=== PATIENT | male | born 1945 | race Caucasian/White ===

== ENCOUNTER → 2019-12-17 11:17 | Outpatient (BNVA) | payer MEDICARE, OTHER, SELFPAY | PROVIDERS: Family Provider Family Medicine; PCP Family Medicine; Visit Provider Nurse Practitioner Family | DX: J02.9 Acute pharyngitis, unspecified (principal); K11.20 Sialoadenitis, unspecified; B37.0 Candidal stomatitis | CPT/HCPCS: 87071; 87880 ==

== ENCOUNTER 2019-12-27 10:33 | Emergency (ER) | payer MEDICARE, OTHER, SELFPAY ==
--- NOTE | 2019-12-27 10:37 | XRR_ITS ---
PROCEDURE INFORMATION: Exam: XR Chest, 1 View Exam date and time: 12/27/2019 10:57 AM Age: 74 years old Clinical indication: Chest pain; Type not specified; Additional info: Chest pain/afib/stemi TECHNIQUE: Imaging protocol: XR of the chest Views: 1 view. COMPARISON: CR Chest 1 [place] [id number] 05/27/2017 8:41 AM FINDINGS: Lungs: Unremarkable. No consolidation. Pleural space: Unremarkable. No pleural effusion. No pneumothorax. Heart/Mediastinum: Unremarkable. No cardiomegaly. Bones/joints: Unremarkable. XR/XR chest 1V portable [id number] IMPRESSION: No acute findings.
--- NOTE | 2019-12-27 10:37 | ECG_ITS ---
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 Measurements Intervals [place] Rate: 62 P: 40 TN: 177 QRS: 30 QRSD: 145 T: 18 QT: 404 QTc: 412 Interpretive Statements Sinus rhythm Right bundle branch block Compared to ECG 04/03/2018 00:28:41 No significant change Electronically Signed On 12-27-2019 17:07:55 CDT by Stacey Celis M.D. [email or web address] Telephone [email or web address] Telegraphcleveland [email or web address]/[id number] f
[2019-12-27 10:40] VITALS: BP 116/68; PULSE 66; RESP 16; O2SAT 97; BMI 25.1
[2019-12-27 10:47] LABS: Basophils # 0.1 10^3/uL (0.0-0.1); Basophils % 1.1 %; Eosinophils # 0.2 10^3/uL (0.0-0.8); Eosinophils % 2.5 %; Hematocrit 43.1 % (42.0-52.0); Hemoglobin 14.7 g/dL (11.7-16.6); Lymphocytes # 2.2 10^3/uL (0.8-4.8); Lymphocytes % 29.5 %; Mean Corpuscular HGB Conc 34.1 g/dL (30.0-36.0); Mean Corpuscular Hemoglobin 30.8 pg (28.0-34.0); Mean Corpuscular Volume 90.4 fL (80-94); Mean Platelet Volume 8.9 fL (7.4-10.4); Monocytes # 0.6 10^3/uL (0.2-0.9); Monocytes % 7.9 %; Neutrophils # 4.43 10^3/uL (1.8-7.7); Neutrophils % 58.5 %; Nucleated Red Blood Cells % 0 %; Platelet Count 260 10^3/cmm (130-400); Red Blood Count 4.77 10^6/uL (4.1-5.3); Red Cell Distribution Width 12.1 % (12.1-15.1); White Blood Count 7.6 10^3/uL (4.0-10.0)
[2019-12-27 10:50] VITALS: BP 116/68; PULSE 65; RESP 15; TEMP 36.4; O2SAT 98
--- NOTE | 2019-12-27 10:51 | W.ED.GENADLT ---
HPI - General Adult General: Chief complaint: General Medical Stated complaint: STEMI Time Seen by Provider: 12/27/19 10:37 History of Present Illness: HPI narrative: 83-year-old male brought in by EMS from home he had an episode this morning where he began to get get short of breath I feel are comfortable he states he can tell he gone into A. fib with a rapid rate. He had never complained of any chest pain. He had no vomiting or diarrhea. He has not recently been ill he denies any shortness of breath at this time. The time he arrived here his A. fib had resolved and he was back in normal sinus rhythm with a bundle branch block. He compared to old EKGs bundle branch block results in some ST elevation in 3 and aVF she also has some LVH. With some repolarization changes in the ST segments laterally. There are Q waves in the inferior leads. Initially a STEMI alert was called however when comparing with old EKGs and with the benefit of the rate being back to a sinus rhythm at a rate of 62 and is apparent there is no ST elevation IN patient is pain-free at this time Onset (ago): minute(s) Location: chest Radiation: non-radiation Severity: mild Relieving factors: none Exacerbating factors: none Associated symptoms: Deny chest pain, confusion, cough, diaphoresis, decreased appetite, dyspnea, fevers/chills, headache(s), malaise, nausea, rash, palpitations, seizures, short of breath, syncope, vomiting or weakness Treatments prior to arrival: none Review of Systems Const: Denies: malaise or diaphoresis ENMT: Denies: throat pain, ear or mastoid pain, nasal discharge or nasal congestion Card: Denies: chest pain, palpitations or syncope Resp: Denies: dyspnea GI: Denies: nausea or vomiting : Denies: flank pain, dysuria, urinary frequency or urinary urgency Skin/Breast: Denies: rash Neuro: Denies: headache(s) or confusion PFSH ED PFSH: Medical History Ascending aortic aneurysm Atrial fibrillation Essential hypertension Family History Other Cancer Diabetes Heart disease Stroke Social History Smoking and tobacco status: never smoked Alcohol intake: never Physical Exam Const: COMMON NORMALS: no acute distress GENERAL APPEARANCE: cooperative and comfortable ORIENTATION/CONSCIOUSNESS: Yes awake, Yes oriented to person, Yes oriented to place and Yes oriented to time HENMT: COMMON NORMALS: normocephalic, atraumatic and hearing grossly normal bilaterally HEAD & SCALP: normocephalic and atraumatic Eye: COMMON NORMALS: Equal, round and reactive pupils present, EOMs intact bilaterally, conjunctivae normal and no scleral icterus CONJUNCTIVA: Yes conjunctivae normal PUPIL: Yes Equal, round and reactive pupils present Neck/C-Spine: COMMON NORMALS: full ROM, no lymphadenopathy, supple and no JVD Lymph: LYMPHATIC: no lymphadenopathy noted and no lymphedema noted Resp: COMMON NORMALS: normal respiratory effort, No retractions, No use of accessory muscles and clear to auscultation bilaterally AUSCULTATION: clear to auscultation bilaterally Cardio: COMMON NORMALS: no JVD, regular rate, regular rhythm and No murmurs present (Cardio) RATE: regular rate RHYTHM: regular rhythm GI: COMMON NORMALS: Soft to palpation and No hepatosplenomegaly present AUSCULTATION: Yes normoactive bowel sounds PALPATION: Yes Soft to palpation, No Tenderness to palpation present (GI), No Guarding due to palpation present (GI) and Yes No hepatosplenomegaly present Extremity: COMMON NORMALS: normal to inspection, capillary refill normal, no clubbing, cyanosis or edema, no calf tenderness and no pedal edema Neuro: SENSORIUM/ORIENTATION: Yes oriented to person, Yes oriented to place and Yes oriented to time Skin: COMMON NORMALS: no rashes or lesions noted GENERAL SKIN EXAM: no rashes or lesions noted Course Vital Signs: Vital signs: Vital Signs Temperature 97.6 F 12/27/19 10:50 Pulse Rate 75 12/27/19 13:26 Respiratory Rate 16 12/27/19 13:26 Blood Pressure 100/75 12/27/19 13:26 Pulse Oximetry 96 12/27/19 13:26 MDM - General Adult MDM Narrative: Medical decision making narrative: He had an episode of A. fib which is now completely resolved he is feeling much better he is already on anticoagulants and medications for rate control. We will go ahead and discharge him home on his current medications with no changes he is not having any chest pain and denies having any chest pain today. Any change or worsening of symptoms return. We will get him set up for a 24-hour Holter monitor for other breakthrough episodes. Lab Data: Labs: Lab Results 12/27/19 12/27/19 12/27/19 Range/Units 10:15 10:15 10:15 WBC 7.6 (4.0-10.0) 10^3/ uL RBC 4.77 (4.1-5.3) 10^6/u L Hgb 14.7 (11.7-16.6) g/dL Hct 43.1 (42.0-52.0) % MCV 90.4 (80-94) fL MCH 30.8 (28.0-34.0) pg MCHC 34.1 (30.0-36.0) g/dL RDW 12.1 (12.1-15.1) % Plt Count 260 (130-400) 10^3/c mm MPV 8.9 (7.4-10.4) fL Neut % (Auto) 58.5 % Lymph % (Auto) 29.5 % [place] % (Auto) 7.9 % Eos % (Auto) 2.5 % Baso % (Auto) 1.1 % Neut # (Auto) 4.43 (1.8-7.7) 10^3/u L Lymph # (Auto) 2.2 (0.8-4.8) 10^3/u L [place] # (Auto) 0.6 (0.2-0.9) 10^3/u L Eos # (Auto) 0.2 (0.0-0.8) 10^3/u L Baso # (Auto) 0.1 (0.0-0.1) 10^3/u L Nucleated RBC % (a uto) 0 % Nucleated RBCs # 0.0 /100WBC Sodium 138 (136-145) mmol/L Potassium 4.5 (3.5-5.1) mmol/L Chloride 101 (98-107) mmol/L Carbon Dioxide 26 (22-29) mmol/L Anion Gap 15.5 (5-19) BUN 16 (8-23) mg/dL Creatinine 0.8 (0.7-1.2) mg/dL GFR Calculation Not Reportable Glucose 205 H (65-115) mg/dL Calculated Osmolal ity 288 (285-295) mOsm/k g Calcium 8.8 (8.5-10.5) mg/dL Total Bilirubin 0.5 (0.15-1.2) mg/dL AST 15 (0-40) U/L ALT 20 (0-41) U/L Alkaline Phosphata se 54 (40-130) IU/L Troponin T Baselin e 18 H (0-15) ng/L Troponin T 120 Min [place] (0-15) ng/L Delta Troponin T (0-10) ABS# NT-Pro-B Natriuret Pep 400 H (0-125) pg/mL Total Protein 7.0 (6.6-8.7) g/dL Albumin 4.0 (3.5-5.2) g/dL Globulin 3.0 (1.3-4.6) g/dL 12/27/19 Range/Units 11:58 WBC (4.0-10.0) 10^3/ uL RBC (4.1-5.3) 10^6/u L Hgb (11.7-16.6) g/dL Hct (42.0-52.0) % MCV (80-94) fL MCH (28.0-34.0) pg MCHC (30.0-36.0) g/dL RDW (12.1-15.1) % Plt Count (130-400) 10^3/c mm MPV (7.4-10.4) fL Neut % (Auto) % Lymph % (Auto) % [place] % (Auto) % Eos % (Auto) % Baso % (Auto) % Neut # (Auto) (1.8-7.7) 10^3/u L Lymph # (Auto) (0.8-4.8) 10^3/u L [place] # (Auto) (0.2-0.9) 10^3/u L Eos # (Auto) (0.0-0.8) 10^3/u L Baso # (Auto) (0.0-0.1) 10^3/u L Nucleated RBC % (a uto) % Nucleated RBCs # /100WBC Sodium (136-145) mmol/L Potassium (3.5-5.1) mmol/L Chloride (98-107) mmol/L Carbon Dioxide (22-29) mmol/L Anion Gap (5-19) BUN (8-23) mg/dL Creatinine (0.7-1.2) mg/dL GFR Calculation Glucose (65-115) mg/dL Calculated Osmolal ity (285-295) mOsm/k g Calcium (8.5-10.5) mg/dL Total Bilirubin (0.15-1.2) mg/dL AST (0-40) U/L ALT (0-41) U/L Alkaline Phosphata se (40-130) IU/L Troponin T Baselin e (0-15) ng/L Troponin T 120 Min [place] 15.72 H (0-15) ng/L Delta Troponin T -2.28 L (0-10) ABS# NT-Pro-B Natriuret Pep (0-125) pg/mL Total Protein (6.6-8.7) g/dL Albumin (3.5-5.2) g/dL Globulin (1.3-4.6) g/dL Discharge Plan Discharge Patient Disposition: Home Clinical Impression: Atrial fibrillation Condition: Stable Prescriptions: No Action Pradaxa 150 mg capsule 150 mg PO BID RF: 0 amoxicillin-pot clavulanate [Augmentin] 875-125 mg tablet 1 tab PO BID 10 Days Qty: 20 RF: 0 nystatin 100,000 unit/mL suspension 6 ml PO QID 7 Days Qty: 168 RF: 0 metformin 500 mg tablet 500 mg PO BID RF: 0 digoxin 125 mcg (0.125 mg) tablet 125 mcg PO DAILY RF: 0 finasteride 5 mg tablet 5 mg PO DAILY RF: 0 gabapentin 300 mg capsule 300 mg PO DAILY RF: 0 glipizide 5 mg tablet See Rx Instructions .ROUTE .COMPLEX RF: 0 tamsulosin 0.4 mg capsule 0.8 mg PO DAILY RF: 0 carvedilol 6.25 mg tablet 6.25 mg PO BID RF: 0 Multiple Vitamins Tablet 1 tab PO DAILY RF: 0 Discharge Orders: Discharge Order (Routine); Ordered 12/27/19 Ordered By: Koko Mcgill Referrals: Deshaun Kelley MD [Primary Care Provider] - Discharge Diet: Usual diet Discharge Activity: Resume usual activity Activity Restrictions/Additional Instructions: Continue current medications no changes follow-up with your primary care doctor Discharge Date/Time: 12/27/19 13:27 Coding Level of Care Code ED Concrete Pouring Supervisor for Chg Fwd Exam Comprehensive
[2019-12-27 11:07] LABS: Troponin(5th) Baseline 18 ng/L (0-15)
[2019-12-27 11:15] LABS: Alanine Aminotransferase 20 U/L (0-41); Alkaline Phosphatase 54 IU/L (40-130); Anion Gap 15.5 (5-19); Aspartate Amino Transferase 15 U/L (0-40); Blood Urea Nitrogen 16 mg/dL (8-23); Calcium 8.8 mg/dL (8.5-10.5); Carbon Dioxide 26 mmol/L (22-29); Chloride 101 mmol/L (98-107); Glucose 205 mg/dL (65-115); NT Pro B Type Natriuretic Pept 400 pg/mL (0-125); Osmolality Calculated 288 mOsm/kg (285-295); Potassium 4.5 mmol/L (3.5-5.1); Sodium 138 mmol/L (136-145); Total Bilirubin 0.5 mg/dL (0.15-1.2)
[2019-12-27 12:35] LABS: Troponin 5 2HR 15.72 ng/L (0-15)
--- NOTE | 2019-12-27 12:37 | ECG_ITS ---
[facility] Test Date: 2019-12-27 Pat Name: Rey Nguyen Department: Room: Gender: Male Paper Control Clerk: : 1945 Requested By: Koko Carlos Order Number: [id number] Dex MD: Stacey Celis M.D. Measurements Intervals [place] Rate: 88 P: 35 LA: 123 QRS: 70 QRSD: 94 T: 44 QT: 366 QTc: 445 Interpretive Statements SINUS RHYTHM NONSPECIFIC T-WAVE ABNORMALITY Compared to ECG 12/27/2019 10:37:35 T-wave abnormality now present Ventricular-paced complex(es) or rhythm no longer present Electronically Signed On 12-27-2019 17:37:27 CDT by Stacey Celis M.D. [id number] f
[2019-12-27 13:13] LABS: Troponin 5 2HR Delta -2.28 ABS# (0-10)
[2019-12-27 13:26] VITALS: BP 100/75; PULSE 75; RESP 16; O2SAT 96
--- NOTE | 2019-12-28 13:24 | DCPLANNER ---
construction site manager had message to schedule an outpatient 24 hour halter monitor for patient with [facility]. construction site manager faxed order to [facility], will call for appointment information. Clinic will call patient with appointment information.
--- NOTE | 2020-01-03 08:43 | DCPLANNER ---
Patient has a follow up appointment scheduled for Thursday, January 04, 2020 at 2:00 with SENIOR IT ASSISTANT, Lupe Trejo and will have a halter monitor placed at this visit. Clinic will call patient with appointment information.
--- NOTE | 2020-01-16 08:33 | DCPLANNER ---
Patient had a follow up appointment scheduled for 01.04.20 with [facility] - patient did attend appt.
== END 2019-12-27 13:27 | disposition home or self-care (01) ==
PROVIDERS: Emergency Provider Family Medicine; PCP Family Medicine
DX: I48.91 Unspecified atrial fibrillation (principal); I10 Essential (primary) hypertension
CPT/HCPCS: 12345; 36415; 71045; 80053; 83880; 84484; 85025; 93005; 99282; 99284

== ENCOUNTER 2020-01-04 11:10 | Outpatient (CLI) | payer MEDICARE, OTHER, SELFPAY ==
--- NOTE | 2020-01-04 11:23 | XR_ITS ---
WS: [id number] EXAM: RIGHT SHOULDER: 2 VIEWS DATE OF EXAMINATION: 01/04/2020, 1130 hours COMPARISON: None. HISTORY: 74 years old with right shoulder pain. Fell this last spring. FINDINGS: There are slight changes of arthritis in the glenohumeral joint with marginal osteophyte formation. A dditional changes of arthritis are seen in the AC joint with both superior and undersurface spurring. No fracture or dislocation is seen. No soft tissue abnormality noted. 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 No acute bony abnormali ty
== END 2020-01-04 11:11 | disposition home or self-care (01) ==
LOC: RAD 11:16
PROVIDERS: PCP Family Medicine; Visit Provider Family Medicine
DX: M25.511 Pain in right shoulder (principal); W19.XXXA Unspecified fall, initial encounter
CPT/HCPCS: 73030

== ENCOUNTER 2020-01-11 07:50 | Outpatient (CLI) | payer MEDICARE, OTHER, SELFPAY ==
--- NOTE | 2020-01-11 08:00 | CT_ITS ---
WS: [id number] CTA THORACIC AORTA WITH AND WITHOUT CONTRAST. HISTORY: Follow-up thoracic aortic aneurysm. TECHNIQUE: CT imaging of the thorax is performed with and without contrast. After noncontrast imaging is performed, CT angiogram is performed during injection of Omnipaque 350; 95 mL IV.. Sagittal and c oronal reconstructions, sagittal and coronal MIP imaging is submitted. All CT scans at [facility] use at least one of these dose optimization techniques: automated exposure control; mA and/o r kV adjustment per patient size (includes targeted exams where dose is matched to clinical indicatio n); or iterative reconstruction. DLP: 1534.78 mGycm COMPARISON: 08/25/2016 Mild stable dilatation of the aortic annulus and ascending aorta to 4.6 cm. Descending aorta is 3.3 c m. There is very minimal intimal thickening and a few calcified plaques. No dissection or progression of the aneurysm. Pulmonary artery size is normal. Great vessels arise normally from the arch. Mild e nlargement the cardiac chambers. Similar to the prior study. No pericardial or pleural effusion. No R IGHT heart strain. Lungs are hyperexpanded from emphysema. There are a few scattered bilateral granulomata. No suspiciou s mass or pulmonary nodule. Small benign appearing mediastinal and hilar lymph nodes. Small esophageal hernia. Visualized gallbladder and upper abdominal structures are negative for any acute process. There is a hook shaped appearance of the proximal celiac axis with a mild stenosis proximally. No significant st enosis. If patient is symptomatic with abdominal pain medial arcuate syndrome should be considered. Multilevel spondylitic changes in the thoracic spine. CT/CT angio chest [id number] IMPRESSION: 1. Stable mild aneurysmal dilatation of the ascending aorta and root. Maximum diameter 4.6 cm. 2. Chronic emphysema with no pulmonary nodules or mass. 3. Mild cardiomegaly.
[2020-01-11] MEDS: iohexol 350 mg/mL 100 mL Btl IV (08:39)
== END 2020-01-11 07:51 | disposition home or self-care (01) ==
LOC: RADWPI 07:54
PROVIDERS: PCP Family Medicine; Visit Provider Internal Medicine Cardiovascular Disease
DX: I71.2 Thoracic aortic aneurysm, without rupture (principal); J43.9 Emphysema, unspecified; I51.7 Cardiomegaly
CPT/HCPCS: 71275; Q9967

== ENCOUNTER 2020-01-21 09:45 | Emergency (ER) | payer MEDICARE, OTHER, SELFPAY ==
[2020-01-21 09:46] VITALS: BP 81/56; PULSE 131; RESP 20; TEMP 36.4; O2SAT 94; BMI 24.4
--- NOTE | 2020-01-21 10:09 | ECG_ITS ---
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 Measurements Intervals [place] Rate: 126 P: OR: -1 QRS: 33 QRSD: 149 T: 49 QT: 330 QTc: 479 Interpretive Statements Junctional rhythm INTRAVENTRICULAR CONDUCTION DELAY [130+ ms QRS DURATION] Compared to ECG 12/27/2019 12:15:23 Intraventricular conduction delay now present Sinus rhythm no longer present T-wave abnormality no longer present Electronically Signed On 01-23-2020 17:27:06 CDT by Fish Stoner M.D. [id number] f
--- NOTE | 2020-01-21 10:09 | XRR_ITS ---
PROCEDURE INFORMATION: Exam: XR Chest, 1 View Exam date and time: 01/21/2020 10:10 AM Age: 75 years old Clinical indication: Dyspnea; Additional info: Dyspnea/cough TECHNIQUE: Imaging protocol: XR of the chest Views: 1 view. COMPARISON: CTA chest January 11, 2020. CR XR chest 1V portable [id number] 12/27/2019 10:46 AM FINDINGS: Lungs: Well aerated. No consolidation. Punctate right upper lobe calcified granuloma incidentally noted. Pleural space: Unremarkable. No evidence of pleural effusion or pneumothorax. Heart/Mediastinum: Unremarkable. No cardiomegaly. Bones/joints: Unremarkable. XR/XR chest 1V portable [id number] IMPRESSION: No acute findings.
--- NOTE | 2020-01-21 10:10 | W.ED.GENADLT ---
HPI - General Adult General: Chief complaint: General Medical Stated complaint: LOW BLOOD PRESSURE Time Seen by Provider: 01/21/20 09:47 History of Present Illness: HPI narrative: 75-year-old male presents emergency room with complaint of rapid heart rate. He has a known history of atrial fibrillation he is on Pradaxa digoxin and carvedilol he is not missed any medications except for this morning because he was not feeling well he did not take it. He had a couple of postural hypotension episodes when he stood up and fell back into the bed and then eventually was able to get up and walk out of the bedroom after resting for a time. He denies any chest pain no recent illness no respiratory symptoms. Onset (ago): hour(s) Location: chest Severity: moderate Relieving factors: rest Exacerbating factors: movement Associated symptoms: Reports dyspnea, malaise, nausea, palpitations and short of breath; Deny chest pain, confusion, cough, diaphoresis, decreased appetite, fevers/chills, headache(s), rash, seizures, syncope, vomiting or weakness Treatments prior to arrival: none Review of Systems Const: Reports: malaise; Denies: diaphoresis ENMT: Denies: throat pain, ear or mastoid pain, nasal discharge or nasal congestion Card: Reports: palpitations; Denies: chest pain or syncope Resp: Reports: dyspnea GI: Reports: nausea; Denies: vomiting : Denies: flank pain, dysuria, urinary frequency or urinary urgency Skin/Breast: Denies: rash Neuro: Denies: headache(s) or confusion PFS ED PFSH: Medical History Ascending aortic aneurysm Atherosclerotic peripheral vascular disease Atrial fibrillation Diabetes mellitus Essential hypertension Hypercholesterolemia Intrathoracic aortic aneurysm Moderate aortic regurgitation Moderate tricuspid regurgitation by prior echocardiogram Surgical History S/P laminectomy S/P vasectomy Family History Other Cancer Diabetes Heart disease Stroke Social History Smoking and tobacco status: never smoked Alcohol intake: never Adopted: No Caregiver/support person: No Lives independently: No Household members: spouse Marital status: Current occupational status: retired Physical Exam Const: COMMON NORMALS: no acute distress GENERAL APPEARANCE: cooperative and comfortable ORIENTATION/CONSCIOUSNESS: Yes awake, Yes oriented to person, Yes oriented to place and Yes oriented to time HENMT: COMMON NORMALS: normocephalic, atraumatic and hearing grossly normal bilaterally HEAD & SCALP: normocephalic and atraumatic Neck/C-Spine: COMMON NORMALS: no JVD Resp: COMMON NORMALS: normal respiratory effort, No retractions, No use of accessory muscles and clear to auscultation bilaterally AUSCULTATION: clear to auscultation bilaterally Cardio: COMMON NORMALS: no JVD, regular rate, regular rhythm and No murmurs present (Cardio) RATE: regular rate RHYTHM: regular rhythm GI: COMMON NORMALS: Soft to palpation and No hepatosplenomegaly present AUSCULTATION: Yes normoactive bowel sounds PALPATION: Yes Soft to palpation, No Tenderness to palpation present (GI), No Guarding due to palpation present (GI) and Yes No hepatosplenomegaly present Extremity: COMMON NORMALS: normal to inspection, capillary refill normal, no clubbing, cyanosis or edema, no calf tenderness and no pedal edema Neuro: SENSORIUM/ORIENTATION: Yes oriented to person, Yes oriented to place and Yes oriented to time Skin: COMMON NORMALS: no rashes or lesions noted GENERAL SKIN EXAM: no rashes or lesions noted Course Vital Signs: Vital signs: Vital Signs Temperature 97.5 F L 01/21/20 09:46 Pulse Rate 62 01/21/20 12:15 Respiratory Rate 20 H 01/21/20 12:15 Blood Pressure 89/59 01/21/20 12:15 Pulse Oximetry 94 01/21/20 12:15 MDM - General Adult MDM Narrative: Medical decision making narrative: Rate is now controlled patient is feeling much better he like to go home we will go ahead and discharge him home return to the emergency room if he has recurrence. Continue current medications follow-up with his brewing director or primary care doctor to within the next 4 to 5 days. Lab Data: Labs: Lab Results 01/21/20 01/21/20 01/21/20 Range/Units 10:22 10:22 10:22 WBC 7.3 (4.0-10.0) 10^3/ uL RBC 4.39 (4.1-5.3) 10^6/u L Hgb 13.4 (11.7-16.6) g/dL Hct 40.3 L (42.0-52.0) % MCV 91.8 (80-94) fL MCH 30.5 (28.0-34.0) pg MCHC 33.3 (30.0-36.0) g/dL RDW 12.1 (12.1-15.1) % Plt Count 185 (130-400) 10^3/c mm MPV 9.8 (7.4-10.4) fL Neut % (Auto) 62.5 % Lymph % (Auto) 25.7 % [place] % (Auto) 7.9 % Eos % (Auto) 2.9 % Baso % (Auto) 0.7 % Neut # (Auto) 4.58 (1.8-7.7) 10^3/u L Lymph # (Auto) 1.9 (0.8-4.8) 10^3/u L [place] # (Auto) 0.6 (0.2-0.9) 10^3/u L Eos # (Auto) 0.2 (0.0-0.8) 10^3/u L Baso # (Auto) 0.1 (0.0-0.1) 10^3/u L Nucleated RBC % (a uto) 0 % Nucleated RBCs # 0.0 /100WBC Sodium 140 (136-145) mmol/L Potassium 4.1 (3.5-5.1) mmol/L Chloride 107 (98-107) mmol/L Carbon Dioxide 24 (22-29) mmol/L Anion Gap 13.1 (5-19) BUN 13 (8-23) mg/dL Creatinine 0.8 (0.7-1.2) mg/dL GFR Calculation Not Reportable Glucose 162 H (65-115) mg/dL Calculated Osmolal ity 294 (285-295) mOsm/k g Calcium 8.9 (8.5-10.5) mg/dL Total Bilirubin 0.6 (0.15-1.2) mg/dL AST 19 (0-40) U/L ALT 16 (0-41) U/L Alkaline Phosphata se 55 (40-130) IU/L Troponin T Baselin e 16 H (0-15) ng/L Total Protein 6.0 L (6.6-8.7) g/dL Albumin 3.7 (3.5-5.2) g/dL Globulin 2.3 (1.3-4.6) g/dL Urine Color (Yellow) Urine Appearance (CLEAR) Urine pH (5-7) Ur Specific Gravit y (1.005-1.030) Urine Protein (Negative) Urine Glucose (UA) (Normal) Urine Ketones (Negative) Urine Blood (Negative) Urine Nitrate (Negative) Urine Bilirubin (Negative) Urine Urobilinogen (Negative) mg/dL Ur Leukocyte Kathrine ase (Negative) Digoxin (0.6-1.2) ng/mL 01/21/20 01/21/20 Range/Units 10:28 11:52 WBC (4.0-10.0) 10^3/ uL RBC (4.1-5.3) 10^6/u L Hgb (11.7-16.6) g/dL Hct (42.0-52.0) % MCV (80-94) fL MCH (28.0-34.0) pg MCHC (30.0-36.0) g/dL RDW (12.1-15.1) % Plt Count (130-400) 10^3/c mm MPV (7.4-10.4) fL Neut % (Auto) % Lymph % (Auto) % [place] % (Auto) % Eos % (Auto) % Baso % (Auto) % Neut # (Auto) (1.8-7.7) 10^3/u L Lymph # (Auto) (0.8-4.8) 10^3/u L [place] # (Auto) (0.2-0.9) 10^3/u L Eos # (Auto) (0.0-0.8) 10^3/u L Baso # (Auto) (0.0-0.1) 10^3/u L Nucleated RBC % (a uto) % Nucleated RBCs # /100WBC Sodium (136-145) mmol/L Potassium (3.5-5.1) mmol/L Chloride (98-107) mmol/L Carbon Dioxide (22-29) mmol/L Anion Gap (5-19) BUN (8-23) mg/dL Creatinine (0.7-1.2) mg/dL GFR Calculation Glucose (65-115) mg/dL Calculated Osmolal ity (285-295) mOsm/k g Calcium (8.5-10.5) mg/dL Total Bilirubin (0.15-1.2) mg/dL AST (0-40) U/L ALT (0-41) U/L Alkaline Phosphata se (40-130) IU/L Troponin T Baselin e (0-15) ng/L Total Protein (6.6-8.7) g/dL Albumin (3.5-5.2) g/dL Globulin (1.3-4.6) g/dL Urine Color Yellow (Yellow) Urine Appearance Clear (CLEAR) Urine pH 7 (5-7) Ur Specific Gravit y 1.005 (1.005-1.030) Urine Protein Neg (Negative) Urine Glucose (UA) Norm (Normal) Urine Ketones Negative (Negative) Urine Blood Neg (Negative) Urine Nitrate Negative (Negative) Urine Bilirubin Neg (Negative) Urine Urobilinogen Norm (Negative) mg/dL Ur Leukocyte Kathrine ase Negative (Negative) Digoxin 0.8 (0.6-1.2) ng/mL Discharge Plan Discharge Patient Disposition: Home Clinical Impression: Atrial fibrillation Condition: Stable Prescriptions: No Action Pradaxa 150 mg capsule 150 mg PO BID RF: 0 citalopram 10 mg tablet 10 mg PO DAILY RF: 0 metformin 500 mg tablet 500 mg PO BID RF: 0 digoxin 125 mcg (0.125 mg) tablet 125 mcg PO DAILY RF: 0 finasteride 5 mg tablet 5 mg PO DAILY RF: 0 glipizide 5 mg tablet See Rx Instructions .ROUTE .COMPLEX RF: 0 tamsulosin 0.4 mg capsule 0.8 mg PO DAILY RF: 0 carvedilol 6.25 mg tablet 6.25 mg PO BID RF: 0 gabapentin 300 mg capsule 300 mg PO DAILY PRN (Reason: UNKNOWN) RF: 0 multivitamin [Multiple Vitamins] Tablet 1 tab PO DAILY RF: 0 Discharge Orders: Discharge Order (Routine); Ordered 01/21/20 Ordered By: Koko Mcgill Referrals: Deshaun Kelley MD [Primary Care Provider] - Discharge Diet: Usual diet Discharge Activity: Resume usual activity Activity Restrictions/Additional Instructions: Continue current medications with no changes follow-up with your primary care provider for worsening symptoms return to the emergency room Discharge Date/Time: 01/21/20 12:12 Coding Level of Care Code ED Surgical Services Asst for Fozia Dalton
[2020-01-21] MEDS: metoprolol tartrate 1 mg/1 mL SDV 5 mL 5 MG IV (10:17)
[2020-01-21 10:39] LABS: Basophils # 0.1 10^3/uL (0.0-0.1); Basophils % 0.7 %; Eosinophils # 0.2 10^3/uL (0.0-0.8); Eosinophils % 2.9 %; Hematocrit 40.3 % (42.0-52.0); Hemoglobin 13.4 g/dL (11.7-16.6); Lymphocytes # 1.9 10^3/uL (0.8-4.8); Lymphocytes % 25.7 %; Mean Corpuscular HGB Conc 33.3 g/dL (30.0-36.0); Mean Corpuscular Hemoglobin 30.5 pg (28.0-34.0); Mean Corpuscular Volume 91.8 fL (80-94); Mean Platelet Volume 9.8 fL (7.4-10.4); Monocytes # 0.6 10^3/uL (0.2-0.9); Monocytes % 7.9 %; Neutrophils # 4.58 10^3/uL (1.8-7.7); Neutrophils % 62.5 %; Nucleated Red Blood Cells % 0 %; Platelet Count 185 10^3/cmm (130-400); Red Blood Count 4.39 10^6/uL (4.1-5.3); Red Cell Distribution Width 12.1 % (12.1-15.1); White Blood Count 7.3 10^3/uL (4.0-10.0)
[2020-01-21 10:58] LABS: Alanine Aminotransferase 16 U/L (0-41); Albumin Level 3.7 g/dL (3.5-5.2); Alkaline Phosphatase 55 IU/L (40-130); Anion Gap 13.1 (5-19); Aspartate Amino Transferase 19 U/L (0-40); Blood Urea Nitrogen 13 mg/dL (8-23); Calcium 8.9 mg/dL (8.5-10.5); Carbon Dioxide 24 mmol/L (22-29); Chloride 107 mmol/L (98-107); Globulin 2.3 g/dL (1.3-4.6); Glucose 162 mg/dL (65-115); Osmolality Calculated 294 mOsm/kg (285-295); Potassium 4.1 mmol/L (3.5-5.1); Sodium 140 mmol/L (136-145); Total Bilirubin 0.6 mg/dL (0.15-1.2)
[2020-01-21 11:00] LABS: Troponin(5th) Baseline 16 ng/L (0-15)
[2020-01-21 11:12] LABS: Digoxin 0.8 ng/mL (0.6-1.2)
--- NOTE | 2020-01-21 12:14 | PC.NURSE ---
discharge instructions given to patient, iv removed. Patient taken to waiting room via wheelchair. Waiting on . AAOx4.
[2020-01-21 12:15] VITALS: BP 89/59; PULSE 62; RESP 20; O2SAT 94
[2020-01-21 12:17] LABS: Add Urine Microscopic? NO
[2020-01-21 12:36] LABS: Urine Appearance Clear (CLEAR); Urine Color Yellow (Yellow); pH Urine 7 (5-7)
[2020-01-21 12:37] LABS: Bilirubin Urine Neg (Negative); Blood Urine Neg (Negative); Glucose Urine UA Norm (Normal); Ketones Urine Negative (Negative); Leukocyte Esterase Urine Negative (Negative); Nitrate Urine Negative (Negative); Protein Urine Neg (Negative); Specific Gravity, Urine 1.005 (1.005-1.030); Urobilinogen Urine Norm (Negative)
== END 2020-01-21 12:12 | disposition home or self-care (01) ==
PROVIDERS: Emergency Provider Family Medicine; PCP Family Medicine
DX: I48.91 Unspecified atrial fibrillation (principal); Z79.84 Long term (current) use of oral hypoglycemic drugs; E11.9 Type 2 diabetes mellitus without complications; I10 Essential (primary) hypertension
CPT/HCPCS: 12345; 71045; 80053; 80162; 81003; 84484; 85025; 93005; 96374; 99283; 99284; J3490

== ENCOUNTER → 2020-01-24 10:18 | Outpatient (BNVA) | payer MEDICARE, OTHER, SELFPAY | PROVIDERS: PCP Family Medicine; Visit Provider Urology | DX: N40.1 Benign prostatic hyperplasia with lower urinary tract symptoms (principal); N13.8 Other obstructive and reflux uropathy; N52.9 Male erectile dysfunction, unspecified | CPT/HCPCS: 81001 ==

== ENCOUNTER → 2020-05-03 14:37 | Outpatient (BNVA) | payer MEDICARE, SELFPAY | PROVIDERS: PCP Family Medicine; Visit Provider Podiatrist Foot & Ankle Surgery | DX: M79.672 Pain in left foot (principal) | CPT/HCPCS: 73630 ==

== ENCOUNTER → 2020-12-25 15:28 | Outpatient (BNVA) | payer MEDICARE, SELFPAY | PROVIDERS: PCP Family Medicine; Visit Provider Orthopaedic Surgery | DX: M75.101 Unspecified rotator cuff tear or rupture of right shoulder, not specified as traumatic (principal) | CPT/HCPCS: 73030 ==

== ENCOUNTER 2021-01-04 20:42 | Emergency (ER) | payer MEDICARE, SELFPAY ==
--- NOTE | 2021-01-04 20:47 | XRR_ITS ---
PROCEDURE INFORMATION: Exam: XR Chest Exam date and time: 01/04/2021 8:47 PM Age: 75 years old Clinical indication: Other: Afib; Additional info: Cp TECHNIQUE: Imaging protocol: XR of the chest. Views: 1 view. COMPARISON: CR XR chest 1V portable [id number] 01/21/2020 10:34 AM FINDINGS: Lungs: Calcified granuloma in the right lung. The lungs are otherwise clear. Pleural spaces: Unremarkable. No pleural effusion. No pneumothorax. Heart/Mediastinum: Heart size is normal. Vasculature: Tortuous aorta. Bones/joints: Bilateral rotator cuff arthropathy. XR/XR chest 1V portable [id number] IMPRESSION: No acute findings.
[2021-01-04 20:49] VITALS: BP 91/58; PULSE 78; RESP 22; TEMP 36.6; O2SAT 96; BMI 24.8
--- NOTE | 2021-01-04 20:54 | W.ED.CHESTPA ---
HPI - Chest Pain General: Chief Complaint: Arrhythmia/Palpitations Stated Complaint: ELEVATED HEART RATE Time Seen by Provider: 01/04/21 20:44 Source: patient and EMS Mode of arrival: EMS Limitations: no limitations History of Present Illness: HPI narrative: 75-year-old male with a history of paroxysmal A. fib. He states that 2 hours ago he started have palpitations try to convert himself at home was unable to. States he is having some weakness this is typical with his A. fib. Denies any chest pain or shortness of breath. EMS his initial EKG was in the 130s and on the way here he converted his heart rates now in the 70s. He states he feels completely fine now and his symptoms of all resolved. Associated symptoms: Reports palpitations; Deny abdominal pain, dyspnea, fever(s), nausea or vomiting Review of Systems Const: Denies: fever(s), chills, body aches or change in appetite Eyes: Denies: blurry vision or eye discomfort ENMT: Denies: throat pain or dental pain Card: Reports: palpitations Resp: Denies: dyspnea GI: Denies: abdominal pain, nausea, vomiting or diarrhea : Denies: dysuria Musc: Denies: neck pain or back pain Skin/Breast: Denies: rash Neuro: Denies: headache(s) Psych: Denies: depression Maxx/Lymph: Denies: easy bruising All/Imm: Denies: urticaria PFSH ED PFSH: Medical History Ascending aortic aneurysm Atherosclerotic peripheral vascular disease Atrial fibrillation BPH with obstruction/lower urinary tract symptoms Cataract Diabetes mellitus Erectile dysfunction Essential hypertension Hypercholesterolemia Incomplete emptying of bladder Intrathoracic aortic aneurysm Moderate aortic regurgitation Moderate tricuspid regurgitation by prior echocardiogram Surgical History S/P laminectomy S/P vasectomy Family History Other Cancer Diabetes Heart disease Stroke Social History Smoking and tobacco status: never smoked Alcohol intake: never Adopted: No Caregiver/support person: No Lives independently: No Household members: spouse Marital status: Current occupational status: retired Physical Exam Const: COMMON NORMALS: no acute distress, patient oriented x3 and healthy appearing HENMT: COMMON NORMALS: normocephalic and atraumatic HEAD & SCALP: normocephalic and atraumatic Eye: COMMON NORMALS: Equal, round and reactive pupils present and EOMs intact bilaterally PUPIL: Yes Equal, round and reactive pupils present Neck/C-Spine: COMMON NORMALS: full ROM and supple Chest: COMMONS NORMALS: normal inspection of the chest and normal palpation of entire chest wall Resp: COMMON NORMALS: normal respiratory effort, No retractions, No use of accessory muscles and clear to auscultation bilaterally AUSCULTATION: clear to auscultation bilaterally Cardio: COMMON NORMALS: regular rate, regular rhythm and No murmurs present (Cardio) RATE: regular rate RHYTHM: regular rhythm GI: COMMON NORMALS: Normal to inspection, nondistended, normoactive bowel sounds present, Soft to palpation, non-tender and no masses PALPATION: Yes Soft to palpation Extremity: COMMON NORMALS: normal to inspection and full ROM Neuro: COMMON NORMALS: patient oriented x3, moves all extremities and no focal motor deficits Psych: COMMON NORMALS: mental status grossly normal, Normal thought process present and cooperative THOUGHT PROCESS: Normal thought process present Skin: COMMON NORMALS: no rashes or lesions noted and no wounds GENERAL SKIN EXAM: no rashes or lesions noted Course Vital Signs: Vital signs: Vital Signs Temperature 97.8 F 01/04/21 20:49 Pulse Rate 77 01/04/21 23:39 Respiratory Rate 20 H 01/04/21 23:39 Blood Pressure 139/78 01/04/21 23:39 Pulse Oximetry 98 01/04/21 23:39 MDM - Chest Pain MDM Narrative: Medical decision making narrative: Patient presents here with palpitations likely his paroxysmal A. fib converted. Zee here has been asymptomatic. EKG here showed no acute abnormalities and heart enzymes are normal. He is stable for discharge is to follow-up with PCP and return if worsening. Lab Data: Labs: Lab Results 01/04/21 01/04/21 01/04/21 Range/Units 20:50 20:50 20:50 WBC 7.0 (4.0-10.0) 10^3/ uL RBC 4.58 (4.1-5.3) 10^6/u L Hgb 13.7 (11.7-16.6) g/dL Hct 40.5 L (42.0-52.0) % MCV 88.4 (80-94) fl MCH 29.9 (28.0-34.0) pg MCHC 33.8 (30.0-36.0) g/dL RDW 12.1 (12.1-15.1) % Plt Count 192 (130-400) 10^3/c mm MPV 9.1 (7.4-10.4) fL Neut % (Auto) 48.7 % Lymph % (Auto) 39.5 % Campbell % (Auto) 8.1 % Eos % (Auto) 3.0 % Baso % (Auto) 0.6 % Neut # (Auto) 3.42 (1.8-7.7) 10^3/u L Lymph # (Auto) 2.8 (0.8-4.8) 10^3/u L Campbell # (Auto) 0.6 (0.2-0.9) 10^3/u L Eos # (Auto) 0.2 (0.0-0.8) 10^3/u L Baso # (Auto) 0.0 (0.0-0.1) 10^3/u L Nucleated RBC % (a uto) 0 % Nucleated RBCs # 0.0 /100WBC PT 17.60 H (12.1-14.9) SECO NDS INR 1.41 H (0.8-1.2) Sodium 139 (136-145) mmol/L Potassium 4.0 (3.5-5.1) mmol/L Chloride 102 (98-107) mmol/L Carbon Dioxide 24 (22-29) mmol/L Anion Gap 17.0 (5-19) BUN 16 (8-23) mg/dL Creatinine 0.8 (0.7-1.2) mg/dL GFR Calculation Not Reportable Glucose 128 H (65-115) mg/dL Calculated Osmolal ity 291 (285-295) mOsm/k g Calcium 9.1 (8.5-10.5) mg/dL Total Bilirubin 0.4 (0.15-1.2) mg/dL AST 15 (0-40) U/L ALT 13 (0-41) U/L Alkaline Phosphata se 57 (40-130) IU/L Troponin T Baselin e (0-15) ng/L Troponin T 120 Min mercy (0-15) ng/L Delta Troponin T (0-10) ABS# Total Protein 6.5 L (6.6-8.7) g/dL Albumin 3.9 (3.5-5.2) g/dL Globulin 2.6 (1.3-4.6) g/dL 01/04/21 01/04/21 Range/Units 20:50 22:47 WBC (4.0-10.0) 10^3/ uL RBC (4.1-5.3) 10^6/u L Hgb (11.7-16.6) g/dL Hct (42.0-52.0) % MCV (80-94) fl MCH (28.0-34.0) pg MCHC (30.0-36.0) g/dL RDW (12.1-15.1) % Plt Count (130-400) 10^3/c mm MPV (7.4-10.4) fL Neut % (Auto) % Lymph % (Auto) % Campbell % (Auto) % Eos % (Auto) % Baso % (Auto) % Neut # (Auto) (1.8-7.7) 10^3/u L Lymph # (Auto) (0.8-4.8) 10^3/u L Campbell # (Auto) (0.2-0.9) 10^3/u L Eos # (Auto) (0.0-0.8) 10^3/u L Baso # (Auto) (0.0-0.1) 10^3/u L Nucleated RBC % (a uto) % Nucleated RBCs # /100WBC PT (12.1-14.9) SECO NDS INR (0.8-1.2) Sodium (136-145) mmol/L Potassium (3.5-5.1) mmol/L Chloride (98-107) mmol/L Carbon Dioxide (22-29) mmol/L Anion Gap (5-19) BUN (8-23) mg/dL Creatinine (0.7-1.2) mg/dL GFR Calculation Glucose (65-115) mg/dL Calculated Osmolal ity (285-295) mOsm/k g Calcium (8.5-10.5) mg/dL Total Bilirubin (0.15-1.2) mg/dL AST (0-40) U/L ALT (0-41) U/L Alkaline Phosphata se (40-130) IU/L Troponin T Baselin e 18 H (0-15) ng/L Troponin T 120 Min mercy 25.32 H (0-15) ng/L Delta Troponin T 7.32 (0-10) ABS# Total Protein (6.6-8.7) g/dL Albumin (3.5-5.2) g/dL Globulin (1.3-4.6) g/dL Imaging Data^: CXR: Attestation: I personally reviewed and interpreted this imaging study as follows: Radiologist's impression: [address] [address] XRay Report Signed Patient: Rey Nguyen Unit #: [id number] : 1945 Age/Sex: 75 / M ADM Date: 01/04/21 Loc: ER Room/Bed: Attending Dr: Ordering Provider/Ordering MD: Randy Chapman MD Date of Service: 01/04/21 Procedure(s): XR chest 1V portable [id number] Accession Number(s): [id number] Report Number: [id number] PROCEDURE INFORMATION: Exam: XR Chest Exam date and time: 01/04/2021 8:47 PM Age: 75 years old Clinical indication: Other: Afib; Additional info: Cp TECHNIQUE: Imaging protocol: XR of the chest. Views: 1 view. COMPARISON: CR XR chest 1V portable [id number] 01/21/2020 10:34 AM FINDINGS: Lungs: Calcified granuloma in the right lung. The lungs are otherwise clear. Pleural spaces: Unremarkable. No pleural effusion. No pneumothorax. Heart/Mediastinum: Heart size is normal. Vasculature: Tortuous aorta. Bones/joints: Bilateral rotator cuff arthropathy. XR/XR chest 1V portable [id number] IMPRESSION: No acute findings. Dictated By: John Paul Rodriguez Signed By: John Paul Rodriguez Signed Date/Time: 01/04/212156 DD/ 2155 EKG Data^: EKG 1: Attestation: I personally reviewed and interpreted this EKG as follows: EKG interpretation date: 01/04/21 EKG interpretation time: 20:48 Interpretation: nsr hr [address] or t wave abnormalities rbbb qrs 148 qtc 427 Discharge Plan Discharge Patient Disposition: Home Clinical Impression: Palpitations Condition: Stable Prescriptions: No Action tamsulosin 0.4 mg capsule 0.8 mg PO DAILY Qty: 180 RF: 3 finasteride 5 mg tablet 5 mg PO DAILY Qty: 90 RF: 3 Pradaxa 150 mg capsule 150 mg PO BID RF: 0 cholecalciferol (vitamin D3) 125 mcg (5,000 unit) capsule 125 mcg PO DAILY RF: 0 atorvastatin 40 mg tablet 40 mg PO DAILY RF: 0 (DME) Accommodative Orthotics Bilaterally See Rx Instructions .Route .MEDSUPPLY Qty: 1 RF: 0 metformin 500 mg tablet 500 mg PO BID RF: 0 digoxin 125 mcg (0.125 mg) tablet 125 mcg PO DAILY RF: 0 carvedilol 6.25 mg tablet 6.25 mg PO BID RF: 0 gabapentin 300 mg capsule 300 mg PO DAILY PRN (Reason: UNKNOWN) RF: 0 glipizide 5 mg tablet 5 mg PO BID RF: 0 (DME) Left AFO See Rx Instructions .Route .MEDSUPPLY Qty: 1 RF: 0 multivitamin [Multiple Vitamins] Tablet 1 tab PO DAILY RF: 0 Discharge Orders: Discharge ED (Routine); Ordered 01/04/21 Ordered By: Randy Chapman Referrals: Deshaun Kelley MD [Primary Care Provider] - 1-3 days Discharge Diet: Advance as tolerated Discharge Activity: Resume usual activity Patient Instructions: Palpitations (ED) Coding Level of Care Code ED [employer]worker [employer] for Chg Fwd Exam Comprehensive
[2021-01-04 21:01] LABS: Basophils % 0.6 %; Eosinophils # 0.2 10^3/uL (0.0-0.8); Hematocrit 40.5 % (42.0-52.0); Hemoglobin 13.7 g/dL (11.7-16.6); Lymphocytes # 2.8 10^3/uL (0.8-4.8); Lymphocytes % 39.5 %; Mean Corpuscular HGB Conc 33.8 g/dL (30.0-36.0); Mean Corpuscular Hemoglobin 29.9 pg (28.0-34.0); Mean Corpuscular Volume 88.4 fl (80-94); Mean Platelet Volume 9.1 fL (7.4-10.4); Monocytes # 0.6 10^3/uL (0.2-0.9); Monocytes % 8.1 %; Neutrophils # 3.42 10^3/uL (1.8-7.7); Neutrophils % 48.7 %; Nucleated Red Blood Cells % 0 %; Platelet Count 192 10^3/cmm (130-400); Red Blood Count 4.58 10^6/uL (4.1-5.3); Red Cell Distribution Width 12.1 % (12.1-15.1)
[2021-01-04 21:16] LABS: INR 1.41 (0.8-1.2)
[2021-01-04] MEDS: sodium chloride 0.9% 1,000 ML 999 ML IV (21:18)
[2021-01-04 21:21] LABS: Troponin(5th) Baseline 18 ng/L (0-15)
[2021-01-04 21:22] LABS: Alanine Aminotransferase 13 U/L (0-41); Albumin Level 3.9 g/dL (3.5-5.2); Alkaline Phosphatase 57 IU/L (40-130); Aspartate Amino Transferase 15 U/L (0-40); Blood Urea Nitrogen 16 mg/dL (8-23); Calcium 9.1 mg/dL (8.5-10.5); Carbon Dioxide 24 mmol/L (22-29); Chloride 102 mmol/L (98-107); Globulin 2.6 g/dL (1.3-4.6); Glucose 128 mg/dL (65-115); Osmolality Calculated 291 mOsm/kg (285-295); Sodium 139 mmol/L (136-145); Total Bilirubin 0.4 mg/dL (0.15-1.2); Total Protein 6.5 g/dL (6.6-8.7)
[2021-01-04 22:00] VITALS: BP 141/77; PULSE 77; RESP 18; O2SAT 99
--- NOTE | 2021-01-04 22:47 | ECG_ITS ---
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 Measurements Intervals [place] Rate: 59 P: 30 ID: 196 QRS: 15 QRSD: 167 T: 18 QT: 429 QTc: 427 Interpretive Statements SINUS BRADYCARDIA RIGHT BUNDLE BRANCH BLOCK [120+ ms QRS DURATION, UPRIGHT V1, 40+ ms S IN I/aVL/V4/V5/V6] Compared to ECG 01/21/2020 10:15:08 Right bundle-branch block now present Junctional rhythm no longer present Intraventricular conduction delay no longer present Electronically Signed On 01-05-2021 16:13:24 CDT by Joseluis Lamar M.D. [email or web address] [email or web address] woman[facility] hospitalRodos BioTargetmount [email or web address]/[id number] f
[2021-01-04 23:17] LABS: Troponin 5 2HR 25.32 ng/L (0-15); Troponin 5 2HR Delta 7.32 ABS# (0-10)
[2021-01-04 23:21] VITALS: BP 103/60; PULSE 63; RESP 18; O2SAT 96
[2021-01-04 23:39] VITALS: BP 139/78; PULSE 77; RESP 20; O2SAT 98
== END 2021-01-04 23:31 | disposition home or self-care (01) ==
PROVIDERS: Emergency Provider Emergency Medicine; PCP Family Medicine
DX: R00.2 Palpitations (principal); Z79.84 Long term (current) use of oral hypoglycemic drugs; E11.9 Type 2 diabetes mellitus without complications; I10 Essential (primary) hypertension
CPT/HCPCS: 71045; 80053; 84484; 85025; 85610; 93005; 96360; 99284; J7030

== ENCOUNTER → 2021-01-23 09:41 | Outpatient (BNVA) | payer MEDICARE, OTHER, SELFPAY | PROVIDERS: PCP Family Medicine; Visit Provider Urology | DX: N13.8 Other obstructive and reflux uropathy (principal); N40.1 Benign prostatic hyperplasia with lower urinary tract symptoms; R33.9 Retention of urine, unspecified | CPT/HCPCS: 81003 ==

== ENCOUNTER 2021-02-10 08:07 | Observation (INO) | payer MEDICARE, OTHER, SELFPAY ==
[2021-02-10] VITALS (25 sets, daily range): BP systolic 72–109; BP diastolic 48–76; PULSE 54–141; RESP 16–36; TEMP 36.6; O2SAT 91–96; BMI 24.4
--- NOTE | 2021-02-10 08:31 | XRR_ITS ---
PROCEDURE INFORMATION: Exam: XR Chest Exam date and time: 02/10/2021 8:31 AM Age: 76 years old Clinical indication: Other: Chf TECHNIQUE: Imaging protocol: XR of the chest. Views: 1 view. COMPARISON: CR (CHEST, ) 01/04/2021 9:02 PM FINDINGS: Lungs: Unremarkable. No consolidation. Pleural spaces: Unremarkable. No pleural effusion. No pneumothorax. Heart/Mediastinum: Unremarkable. No cardiomegaly. Bones/joints: Unremarkable. XR/XR chest 1V portable [id number] IMPRESSION: No acute findings. Radiation Dose CTDIVOL = (mGy): DLP = (mGy-cm)
--- NOTE | 2021-02-10 08:31 | ECG_ITS ---
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 Measurements Intervals [place] Rate: 134 P: NM: QRS: 22 QRSD: 147 T: 21 QT: 320 QTc: 478 Interpretive Statements ATRIAL FLUTTER/TACHYCARDIA WITH RAPID VENTRICULAR RESPONSE INDETERMINATE AXIS RIGHT BUNDLE BRANCH BLOCK [120+ ms QRS DURATION, UPRIGHT V1, 40+ ms S IN I/aVL/V4/V5/V6] ST DEPRESSION, CONSIDER SUBENDOCARDIAL INJURY [0.1+ mV ST DEPRESSION] Compared to ECG 01/04/2021 22:09:56 Indeterminate axis now present ST (T wave) deviation now present Sinus bradycardia no longer present Electronically Signed On 02-10-2021 18:14:24 CDT by Joseluis Lamar M.D. [id number]
[2021-02-10 08:46] LABS: Basophils # 0.1 10^3/uL (0.0-0.1); Basophils % 0.7 %; Eosinophils # 0.2 10^3/uL (0.0-0.8); Eosinophils % 2.4 %; Hematocrit 39.7 % (42.0-52.0); Hemoglobin 13.3 g/dL (11.7-16.6); Lymphocytes # 2.4 10^3/uL (0.8-4.8); Lymphocytes % 34.1 %; Mean Corpuscular HGB Conc 33.5 g/dL (30.0-36.0); Mean Corpuscular Volume 89.4 fl (80-94); Mean Platelet Volume 9.6 fL (7.4-10.4); Monocytes # 0.5 10^3/uL (0.2-0.9); Monocytes % 7.8 %; Neutrophils # 3.79 10^3/uL (1.8-7.7); Neutrophils % 54.6 %; Nucleated Red Blood Cells % 0 %; Platelet Count 177 10^3/cmm (130-400); Red Blood Count 4.44 10^6/uL (4.1-5.3); Red Cell Distribution Width 12.1 % (12.1-15.1)
[2021-02-10 08:51] LABS: INR 1.29 (0.8-1.2)
[2021-02-10] MEDS: metoprolol tartrate 1 mg/1 mL SDV 5 mL 2.5 MG IVP (09:00)
[2021-02-10 09:02] LABS: Troponin(5th) Baseline 17 ng/L (0-15)
[2021-02-10 09:09] LABS: Alanine Aminotransferase 12 U/L (0-41); Alkaline Phosphatase 61 IU/L (40-130); Anion Gap 14.5 (5-19); Aspartate Amino Transferase 12 U/L (0-40); Blood Urea Nitrogen 14 mg/dL (8-23); Calcium 9.2 mg/dL (8.5-10.5); Carbon Dioxide 26 mmol/L (22-29); Chloride 103 mmol/L (98-107); Digoxin 0.5 ng/mL (0.6-1.2); Globulin 2.8 g/dL (1.3-4.6); Glucose 159 mg/dL (65-115); NT Pro B Type Natriuretic Pept 138 pg/mL (0-450); Osmolality Calculated 292 mOsm/kg (285-295); Potassium 4.5 mmol/L (3.5-5.1); Sodium 139 mmol/L (136-145); Total Bilirubin 0.5 mg/dL (0.15-1.2); Total Protein 6.8 g/dL (6.6-8.7)
[2021-02-10 09:18] LABS: Lactic Sepsis W/Reflex 1.9 mmol/L (0.5-2.2)
[2021-02-10] MEDS: metoprolol tartrate 1 mg/1 mL SDV 5 mL 5 MG IVP (10:04)
--- NOTE | 2021-02-10 10:33 | CTR_ITS ---
PROCEDURE INFORMATION: Exam: CTA Chest With Contrast Exam date and time: 02/10/2021 10:33 AM Age: 76 years old Clinical indication: Other: Increase heart rate; Additional info: Abnormal chest TECHNIQUE: Imaging protocol: Computed tomographic angiography of the chest with contrast. 3D rendering (Not supervised by radiologist): MIP and/or 3D reconstructed images were created by the technologist. Radiation optimization: All CT scans at this facility use at least one of these dose optimization techniques: automated exposure control; mA and/or kV adjustment per patient size (includes targeted exams where dose is matched to clinical indication); or iterative reconstruction. Contrast material: OMNI 350; Contrast volume: 95 ml; Contrast route: INTRAVENOUS (IV); COMPARISON: CT angio chest [id number] 01/11/2020 8:26 AM RADIATION DOSE METRICS: Total DLP (mGy-cm): 593.81 FINDINGS: Pulmonary arteries: Normal. No pulmonary emboli. Aorta: There is stable aneurysmal dilatation of the ascending aorta with a diameter of 4.6 cm. Lungs: There are few small bilateral calcified pulmonary nodules. There are no suspicious nodules. There is no pneumonia. Pleural spaces: Unremarkable. No pneumothorax. No pleural effusion. Heart: Heart is mildly enlarged. There is calcification of the coronary arteries. Lymph nodes: Are multiple small benign calcified lymph nodes in the mediastinum and in the pulmonary zane. Spleen: There are multiple small benign calcified granulomas in the spleen. Kidneys and ureters: There is a punctate nonobstructing calcification in the superior pole of the left kidney. Bones/joints: Chronic degenerative changes are present in the spine with sclerosis and osteophytes. No acute bony abnormality. Soft tissues: Unremarkable. CT/CT angio chest PE protcl [id number] IMPRESSION: 1. No evidence of pulmonary embolus. 2. Stable aneurysmal dilatation of the ascending aorta at 4.6 cm. 3. Benign calcified granulomas disease. 4. Mild cardiomegaly. Coronary artery calcifications. Radiation Dose CTDIVOL = (mGy): DLP = 593.81 (mGy-cm)
--- NOTE | 2021-02-10 10:34 | ECG_ITS ---
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 Measurements Intervals [place] Rate: 122 P: 157 [place]: 197 QRS: 8 QRSD: 152 T: 13 QT: 322 QTc: 460 Interpretive Statements Supraventricular tachycardia/possible atrial flutter with a fixed AV block RIGHT BUNDLE BRANCH BLOCK [120+ ms QRS DURATION, UPRIGHT V1, 40+ ms S IN I/aVL/V4/V5/V6] Compared to ECG 02/10/2021 08:26:33 Atrial flutter no longer present Indeterminate axis no longer present ST (T wave) deviation no longer present Electronically Signed On 02-10-2021 18:41:27 CDT by Joseluis Lamar M.D. [email or web address] medical center [email or web address]/store/[id number]
[2021-02-10] MEDS: iohexol 350 mg/mL 100 mL Btl IV (10:58)
[2021-02-10 11:18] LABS: Troponin 5 2HR 19.44 ng/L (0-15); Troponin 5 2HR Delta 2.44 ABS# (0-10)
--- NOTE | 2021-02-10 11:39 | W.ED.DIZZY ---
HPI - Dizziness General: Chief Complaint: Dizziness Stated Complaint: TACHY; DIZZY Time Seen by Provider: 02/10/21 08:30 Source: patient Mode of arrival: ambulatory History of Present Illness: HPI Narrative: 76 year old male with a hx of Afib/flutter started having palpitations this morning; tried valsalva etc with no improvement No recent change in medications Took his dose of coreg this morning at 6:30 am after his symptoms started No chest pain or trouble breathing EMS found him to be diaphoretic and hypotensive , HR in the 130s MD elicited complaint: dizziness, lightheadedness and near syncope Onset (ago): hour(s) Timing: awoke with symptoms Description: lightheadedness Associated symptoms: Reports palpitations; Denies chest pain, chills, headache(s), nausea or vomiting Review of Systems General: Reports: 10 or more systems reviewed and unremarkable except in HPI and below Const: Denies: fever(s), chills, body aches, change in appetite, change in weight or fatigue Eyes: Denies: change in vision, blurry vision, blind spots or photophobia ENMT: Denies: throat pain, odynophagia or hoarseness Card: Reports: palpitations, irregular heart rhythm, lightheadedness and pre-syncope; Denies: chest pain, edema or swelling of feet/ankles Resp: Denies: dyspnea, productive cough, non-productive cough or wheezing GI: Denies: abdominal pain, nausea or vomiting Musc: Denies: neck pain, back pain, extremity pain or extremity swelling Skin/Breast: Denies: rash, pruritus or erythema Neuro: Reports: dizziness; Denies: headache(s) or Slurred speech present Psych: Denies: anxiety or depression PFSH ED PFSH: Medical History Ascending aortic aneurysm Atherosclerotic peripheral vascular disease Atrial fibrillation BPH with obstruction/lower urinary tract symptoms Cataract Diabetes mellitus Erectile dysfunction Essential hypertension Hypercholesterolemia Incomplete emptying of bladder Intrathoracic aortic aneurysm Moderate aortic regurgitation Moderate tricuspid regurgitation by prior echocardiogram Surgical History S/P laminectomy S/P vasectomy Family History Other Cancer Diabetes Heart disease Stroke Social History Alcohol intake: never Adopted: No Caregiver/support person: No Lives independently: No Household members: spouse Marital status: Current occupational status: retired Physical Exam Const: COMMON NORMALS: patient oriented x3 GENERAL APPEARANCE: cooperative, lethargic, ill appearing, frail appearing and diaphoretic ORIENTATION/CONSCIOUSNESS: Yes awake, Yes oriented to person, Yes oriented to place and Yes lethargic HENMT: COMMON NORMALS: normocephalic and atraumatic HEAD & SCALP: normocephalic and atraumatic FACE & SINUS: normal facial exam Eye: COMMON NORMALS: Equal, round and reactive pupils present, EOMs intact bilaterally, conjunctivae normal and no scleral icterus GENERAL EYE: appearance normal, both eyes and all related structures ALIGNMENT: Yes alignment normal CONJUNCTIVA: Yes conjunctivae normal SCLERA: sclerae normal PUPIL: Yes Equal, round and reactive pupils present Neck/C-Spine: COMMON NORMALS: full ROM, no lymphadenopathy, supple and no JVD CERVICAL SPINE: Yes cervical ROM normal Lymph: LYMPHATIC: no lymphadenopathy noted and no lymphedema noted Chest: COMMONS NORMALS: normal inspection of the chest and normal palpation of entire chest wall CHEST: Yes abnormal inspection of the chest Resp: COMMON NORMALS: normal respiratory effort and No retractions EFFORT & INSPECTION: Yes able to speak in complete sentences, No Actively coughing and No retractions Cardio: COMMON NORMALS: no JVD, S1 normal heart sound present and Peripheral pulses 2+ throughout RATE: tachycardic RHYTHM: abnormal rhythm irregularly irregular HEART SOUNDS: S1 normal heart sound present PERIPHERAL PULSES: Peripheral pulses 2+ throughout GI: COMMON NORMALS: Normal to inspection, nondistended, normoactive bowel sounds present, Soft to palpation, non-tender, no masses and no bruits PALPATION: Yes Soft to palpation Extremity: COMMON NORMALS: normal to inspection, full ROM and capillary refill normal GENERAL: Yes normal exam except as noted Neuro: COMMON NORMALS: patient oriented x3, CN's II-XII intact bilaterally, moves all extremities and no focal motor deficits SENSORIUM/ORIENTATION: Yes oriented to person, Yes oriented to place and Yes lethargic Skin: COMMON NORMALS: no rashes or lesions noted, no wounds, turgor normal and no jaundice GENERAL SKIN EXAM: no rashes or lesions noted and turgor normal Course Vital Signs: Vital signs: Vital Signs Temperature 97.9 F 02/10/21 08:08 Pulse Rate 54 L 02/10/21 15:55 Respiratory Rate 16 02/10/21 15:55 Blood Pressure 98/62 02/10/21 15:55 Pulse Oximetry 96 02/10/21 15:55 MDM - Dizziness MDM Narrative: Medical decision making narrative: 76 year old , Afib with RVR, Hypotensive 70s/50s on arrival- not fluid responsive. Bedside ultrasound does not show any obvious wall motion abnormalities, no pericardial effusion. Improved slightly with IVP dose of metoprolol; first 2.5mg, then 5mg,but still remains with rate>120 and hypotensive Clinically appears improved, however;improved perfusion, color etc, No acute PE on CTA, ascending aneurysm is stable at 4.6cm No acute abnormalities on labwork; lytes all ok. Troponin levels being trended. No acute ischemia on EKG Discussed with Dr Washington, cardiology; Recommends starting amio drip and admission for rate control Discussed with Dr Mercado , hospitalist, who accepts the admission. Medical Records: Attestation: I reviewed the patient's medical records. Lab Data: Attestation: I reviewed the patient's lab results. Labs: Lab Results 02/10/21 02/10/21 02/10/21 08:20 08:20 08:20 WBC RBC Hgb Hct MCV MCH MCHC RDW Plt Count MPV Neut % (Auto) Lymph % (Auto) Heard % (Auto) Eos % (Auto) Baso % (Auto) Neut # (Auto) Lymph # (Auto) Heard # (Auto) Eos # (Auto) Baso # (Auto) Nucleated RBC % (a uto) Nucleated RBCs # PT INR Sodium 139 mmol/L mmol/L (136-145) Potassium 4.5 mmol/L mmol/L (3.5-5.1) Chloride 103 mmol/L mmol/L (98-107) Carbon Dioxide 26 mmol/L mmol/L (22-29) Anion Gap 14.5 (5-19) BUN 14 mg/dL mg/dL (8-23) Creatinine 0.8 mg/dL mg/dL (0.7-1.2) GFR Calculation Not Reportable Glucose 159 mg/dL H mg/dL (65-115) Calculated Osmolal ity 292 mOsm/kg mOsm/ kg (285-295) Lactic Acid Calcium 9.2 mg/dL mg/dL (8.5-10.5) Magnesium 2.0 mg/dL mg/dL (1.7-2.3) Total Bilirubin 0.5 mg/dL mg/dL (0.15-1.2) AST 12 U/L U/L (0-40) ALT 12 U/L U/L (0-41) Alkaline Phosphata se 61 IU/L IU/L (40-130) Troponin T Baselin e 17 ng/L H ng/L (0-15) Troponin T [address] [place] Troponin T NT-Pro-B Natriuret Pep 138 pg/mL pg/mL (0-450) Total Protein 6.8 g/dL g/dL (6.6-8.7) Albumin 4.0 g/dL g/dL (3.5-5.2) Globulin 2.8 g/dL g/dL (1.3-4.6) TSH Digoxin 0.5 ng/mL L ng/mL (0.6-1.2) 02/10/21 02/10/21 02/10/21 08:25 08:25 08:25 WBC 7.0 10^3/uL 10^3/ uL (4.0-10.0) RBC 4.44 10^6/uL 10^6 /uL (4.1-5.3) Hgb 13.3 g/dL g/dL (11.7-16.6) Hct 39.7 % L % (42.0-52.0) MCV 89.4 fl fl (80-94) MCH 30.0 pg pg (28.0-34.0) MCHC 33.5 g/dL g/dL (30.0-36.0) RDW 12.1 % % (12.1-15.1) Plt Count 177 10^3/cmm 10^3 /cmm (130-400) MPV 9.6 fL fL (7.4-10.4) Neut % (Auto) 54.6 % % Lymph % (Auto) 34.1 % % Heard % (Auto) 7.8 % % Eos % (Auto) 2.4 % % Baso % (Auto) 0.7 % % Neut # (Auto) 3.79 10^3/uL 10^3 /uL (1.8-7.7) Lymph # (Auto) 2.4 10^3/uL 10^3/ uL (0.8-4.8) Heard # (Auto) 0.5 10^3/uL 10^3/ uL (0.2-0.9) Eos # (Auto) 0.2 10^3/uL 10^3/ uL (0.0-0.8) Baso # (Auto) 0.1 10^3/uL 10^3/ uL (0.0-0.1) Nucleated RBC % (a uto) 0 % % Nucleated RBCs # 0.0 /100WBC /100W BC PT 16.40 SECONDS H S ECONDS (12.1-14.9) INR 1.29 H (0.8-1.2) Sodium Potassium Chloride Carbon Dioxide Anion Gap BUN Creatinine GFR Calculation Glucose Calculated Osmolal ity Lactic Acid 1.9 mmol/L mmol/L (0.5-2.2) Calcium Magnesium Total Bilirubin AST ALT Alkaline Phosphata se Troponin T Baselin e Troponin T [address] [place] Troponin T NT-Pro-B Natriuret Pep Total Protein Albumin Globulin TSH Digoxin 02/10/21 02/10/21 10:10 10:10 WBC RBC Hgb Hct MCV MCH MCHC RDW Plt Count MPV Neut % (Auto) Lymph % (Auto) Heard % (Auto) Eos % (Auto) Baso % (Auto) Neut # (Auto) Lymph # (Auto) Heard # (Auto) Eos # (Auto) Baso # (Auto) Nucleated RBC % (a uto) Nucleated RBCs # PT INR Sodium Potassium Chloride Carbon Dioxide Anion Gap BUN Creatinine GFR Calculation Glucose Calculated Osmolal ity Lactic Acid Calcium Magnesium Total Bilirubin AST ALT Alkaline Phosphata se Troponin T Baselin e Troponin T [address] [place] 19.44 ng/L H ng/L (0-15) Delta Troponin T 2.44 ABS# ABS# (0-10) NT-Pro-B Natriuret Pep Total Protein Albumin Globulin TSH 1.69 uIU/mL uIU/m L (0.27-4.20) Digoxin Critical Care Time Critical Care Time: Critical Care Time: Yes Total Critical Care Time: 60 Attestation: This case had a high probability of a clinically significant, sudden, or life threatening deterioration of this patient's condition which required my full and direct attention, intervention and personal management. Cardiogenic shock, Discharge Plan Discharge Patient Disposition: Admitted As Inpatient Admit Provider: Jaime Mercado Clinical Impression: Orthostatic hypotension Atrial fibrillation Qualifiers: Atrial fibrillation type: paroxysmal Qualified Code(s): I48.0 - Paroxysmal atrial fibrillation Condition: Stable Coding Level of Care Code ED Maternity Floor Supervisor for Fozia Dalton
[2021-02-10] MEDS: amiodarone 50 mg/mL SDV 3 mL 150 MG IVP (12:28)
--- NOTE | 2021-02-10 12:32 | PM.HP ---
Providers/Chief Complaint Admitting Physician: Jaime Mercado MD Primary Care Provider: Deshaun Kelley MD Chief Complaint: TACHY; DIZZY History of Present Illness Rey Nguyen is a 76 year old male with a past medical history of ATRIAL FIBRILLATION on Pradaxa, peripheral vascular disease, mqs-[id number]-[id number] type 2 diabetes mellitus, hypertension, hyperlipidemia, who presents to [facility] due to chest palpitations. Patient tells me that he has been having episodes of chest palpitations for the last 2 weeks, he knows it is A. fib, because he can feel his heart racing, no lightheadedness, dizziness, typically tells me that his blood pressure runs low when he is in A. fib, as this has happened multiple times in the past, he has been cardioverted once, he tells me that he spent 2 days in the ICU at 1 point, he is received chemical conversions in the past, about a week ago he called Dr. Gordon's office when he was in A. fib, and was on hold for long period of time when he he noticed that it spontaneously resolved. Patient tells me that this morning he had episodes of chest palpitations, and chest pain, and his heart was racing fast that is what brought him to the emergency room. In the emergency room he was found to have A. fib with RVR, digoxin level was low, blood pressures were 80s over 60s, map greater than 70, heart rate in the 130s, ER physician contacted cardiology who recommended amiodarone bolus followed by drip. Currently alert oriented x3, follows all commands, he tells me that he is compliant with his all his medications. Review of Systems Const: Denies: fever(s), chills, fatigue or malaise Eyes: Denies: change in vision or blurry vision ENMT: Denies: nasal congestion Card: Reports: palpitations; Denies: chest pain, irregular heart rhythm, edema, swelling of feet/ankles or lightheadedness Resp: Denies: dyspnea, productive cough, non-productive cough or wheezing GI: Denies: abdominal pain, nausea, vomiting, hematemesis, diarrhea, constipation, hematochezia or melena : Denies: flank pain, difficulty urinating, dysuria or urinary frequency Musc: Denies: neck pain or back pain Skin/Breast: Denies: rash Neuro: Denies: headache(s), dizziness or vertigo Endo: Denies: polyuria or polydipsia Medications/Allergies Home Medications Medication Instructions Recorded Confirmed Last Taken Type carvedilol 6.25 mg tablet 6.25 mg PO BID 08/29/19 02/10/21 02/10/21 History digoxin 125 mcg (0.125 mg) tablet 125 mcg PO DAILY 08/29/19 02/10/21 02/10/21 History metformin 500 mg tablet 500 mg PO BID 08/29/19 02/10/21 02/10/21 History dabigatran etexilate 150 mg capsule 150 mg PO BID 08/30/19 02/10/21 02/10/21 History multivitamin [Multiple Vitamins] 1 tab PO DAILY 12/27/19 02/10/21 02/10/21 History gabapentin 300 mg capsule 300 mg PO DAILY PRN 01/04/20 02/10/21 Unknown History finasteride 5 mg tablet 5 mg PO DAILY #90 tab 01/24/20 02/10/21 02/09/21 Rx tamsulosin 0.4 mg capsule 0.8 mg PO DAILY #180 cap 01/24/20 02/10/21 02/10/21 Rx Accommodative Orthotics Bilaterally #1 ea 05/03/20 02/10/21 Unknown Rx Left AFO #1 ea 05/28/20 02/10/21 Unknown Rx cholecalciferol (vitamin D3) 125 125 mcg PO DAILY 09/06/20 02/10/21 02/10/21 History mcg (5,000 unit) capsule glipizide 5 mg tablet 5 mg PO BID tab 09/06/20 02/10/21 02/10/21 History Allergies Allergy/AdvReac Type Severity Reaction Status Date / Time No Known Allergies Allergy Verified 01/23/21 09:44 PFSH Acute PFSH: Medical History Ascending aortic aneurysm Atherosclerotic peripheral vascular disease Atrial fibrillation BPH with obstruction/lower urinary tract symptoms Cataract Diabetes mellitus Erectile dysfunction Essential hypertension Hypercholesterolemia Incomplete emptying of bladder Intrathoracic aortic aneurysm Moderate aortic regurgitation Moderate tricuspid regurgitation by prior echocardiogram Surgical History S/P laminectomy S/P vasectomy Family History Other Cancer Diabetes Heart disease Stroke Social History Alcohol intake: never Adopted: No Caregiver/support person: No Lives independently: No Household members: spouse Marital status: Current occupational status: retired Vitals/I&O/Wt Last Vital Signs Temp 97.9 F 02/10/21 08:08 Pulse 124 H 02/10/21 12:15 Resp 21 H 02/10/21 12:15 BP 87/65 02/10/21 12:15 Pulse Ox 94 02/10/21 12:15 Weight last 48 hrs Weight 79.379 kg Physical Exam Const: COMMON NORMALS: no acute distress and patient oriented x3 GENERAL APPEARANCE: cooperative and comfortable Eye: COMMON NORMALS: Equal, round and reactive pupils present GENERAL EYE: appearance normal, both eyes and all related structures PUPIL: Yes Equal, round and reactive pupils present Neck/C-Spine: COMMON NORMALS: full ROM and no lymphadenopathy THYROID: Thyroid normal Resp: COMMON NORMALS: normal respiratory effort, No retractions, No use of accessory muscles and clear to auscultation bilaterally AUSCULTATION: clear to auscultation bilaterally Cardio: COMMON NORMALS: S1 normal heart sound present, S2 normal heart sound present, No gallops present (Cardio), No clicks present (Cardio) and No murmurs present (Cardio) RATE: tachycardic RHYTHM: abnormal rhythm irregularly irregular HEART SOUNDS: S1 normal heart sound present and S2 normal heart sound present GI: COMMON NORMALS: Normal to inspection, nondistended, normoactive bowel sounds present, Soft to palpation, non-tender and No hepatosplenomegaly present PALPATION: Yes Soft to palpation and Yes No hepatosplenomegaly present Extremity: COMMON NORMALS: normal to inspection, full ROM and no pedal edema Psych: COMMON NORMALS: mental status grossly normal, Normal thought process present and cooperative THOUGHT PROCESS: Normal thought process present Data : 02/10/21 08:25 02/10/21 08:20 A&P Assessment and plan (1) Atrial fibrillation with rapid ventricular response: atrial fibrillation rapid ventricular response -Currently in A. fib, heart rates 120s to 130s, blood pressures 80s over 60s -Alert oriented x3, following all commands, has taken his Pradaxa this morning -Plan is amiodarone bolus followed by amiodarone drip -If continues to be in A. fib and has hemodynamic compromise will discuss with cardiology about cardioversion -Maintain magnesium greater than 2, potassium greater than 4, check TSH -Full code -Pradaxa for DVT prophylaxis Diabetes mellitus, [id number]-blduabtrk -low-dose insulin sliding scale Hypertension, continue to hold Coreg Ascending aortic aneurysm, CT angiogram shows ascending aortic aneurysm 4.6 cm Status: Acute (2) Diabetes mellitus: Status: Acute (3) Atherosclerotic peripheral vascular disease: Status: Acute (4) Hypercholesterolemia: Status: Acute (5) BPH with obstruction/lower urinary tract symptoms: Status: Acute (6) Essential hypertension: Status: Acute (7) Ascending aortic aneurysm: Status: Acute Attestations Medical Necessity Statement*: Patient requires hospitalization, inpatient, greater than 2 minutes, for A. fib with RVR Coding Level of Care Code Acute Front Office Director for Chg Fwd Diagnoses Atrial fibrillation with rapid ventricular response I48.91 Diabetes mellitus E11.9 Atherosclerotic peripheral vascular disease I70.209 Hypercholesterolemia E78.00 BPH with obstruction/lower urinary tract symptoms N40.1; N13.8 Essential hypertension I10 Ascending aortic aneurysm I71.2
--- NOTE | 2021-02-10 12:44 | ECG_ITS ---
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 Measurements Intervals [place] Rate: 58 P: 11 AK: 210 QRS: 18 QRSD: 152 T: 60 QT: 407 QTc: 401 Interpretive Statements SINUS BRADYCARDIA WITH SINUS ARRHYTHMIA WITH FIRST DEGREE AV BLOCK RIGHT BUNDLE BRANCH BLOCK [120+ ms QRS DURATION, UPRIGHT V1, 40+ ms S IN I/aVL/V4/V5/V6] Compared to ECG 02/10/2021 12:26:13 First degree AV block now present Sinus tachycardia no longer present Electronically Signed On 02-10-2021 18:20:41 CDT by Joseluis Lamar M.D. [email or web address] [id number] f
--- NOTE | 2021-02-10 12:45 | PC.NURSE ---
12 Lead EKG ordered per protocol due to rhythm conversion after pt received 150 mg Amiodarone IV and was started on Amiodarone drip at 1 mg/min per orders. Pt alert, oriented. BP now 100/65. HR 60.
[2021-02-10 14:01] LABS: Add Urine Microscopic? NO; Charge for UA Resulting for Rev
[2021-02-10 14:08] LABS: Bilirubin Urine Neg (Negative); Blood Urine Neg (Negative); Glucose Urine UA Norm (Normal); Ketones Urine Negative (Negative); Leukocyte Esterase Urine Negative (Negative); Nitrate Urine Negative (Negative); Protein Urine Neg (Negative); Urine Appearance Clear (CLEAR); Urine Color Straw (Yellow); Urobilinogen Urine 1 mg/dL (Negative); pH Urine 6.5 (5-7)
[2021-02-10 14:33] LABS: Thyroid Stimulating Hormone 1.69 uIU/mL (0.27-4.20)
--- NOTE | 2021-02-10 14:34 | ECG_ITS ---
[facility] Test Date: 2021-02-10 Pat Name: Rey Nguyen Department: Room: 112 Gender: Male Lead Welder: : 1945 Requested By: Kennedi Bee Order Number: [id number] Dex MD: Joseluis Lamar M.D. Measurements Intervals [place] Rate: 58 P: 3 ND: 207 QRS: 18 QRSD: 154 T: 22 QT: 416 QTc: 409 Interpretive Statements SINUS BRADYCARDIA RIGHT BUNDLE BRANCH BLOCK [120+ ms QRS DURATION, UPRIGHT V1, 40+ ms S IN I/aVL/V4/V5/V6] Compared to ECG 02/10/2021 12:48:23 Sinus arrhythmia no longer present First degree AV block no longer present Electronically Signed On 02-10-2021 18:41:45 CDT by Joseluis Lamar M.D. [id number]
[2021-02-10 14:58] LABS: Troponin 5 6HR 23.13 ng/L (0-15); Troponin 5 6HR Delta 6.13 ng/L (0-12)
[2021-02-10 15:58] LABS: Glucose Point of Care 163 mg/dL (70-110)
[2021-02-10] MEDS: insulin lispro 100 unit/1 mL SUBCUT (16:44)
[2021-02-10] MEDS: amiodarone 200 mg Tablet 400 MG PO (17:55)
[2021-02-10] MEDS: famotidine 20 mg Tablet PO (17:55)
[2021-02-11 04:00] VITALS: BP 116/68; PULSE 59; RESP 16; TEMP 36.6; O2SAT 96
[2021-02-11] MEDS: acetaminophen 325 mg Tablet 650 MG PO (04:02)
[2021-02-11 05:10] LABS: Basophils # 0.1 10^3/uL (0.0-0.1); Basophils % 1.1 %; Eosinophils # 0.2 10^3/uL (0.0-0.8); Eosinophils % 3.7 %; Hematocrit 38.1 % (42.0-52.0); Hemoglobin 12.7 g/dL (11.7-16.6); Lymphocytes # 2.3 10^3/uL (0.8-4.8); Lymphocytes % 40.7 %; Mean Corpuscular HGB Conc 33.3 g/dL (30.0-36.0); Mean Corpuscular Hemoglobin 29.7 pg (28.0-34.0); Mean Corpuscular Volume 89.2 fl (80-94); Mean Platelet Volume 9.3 fL (7.4-10.4); Monocytes # 0.4 10^3/uL (0.2-0.9); Monocytes % 7.7 %; Neutrophils # 2.61 10^3/uL (1.8-7.7); Neutrophils % 46.4 %; Nucleated Red Blood Cells % 0 %; Platelet Count 163 10^3/cmm (130-400); Red Blood Count 4.27 10^6/uL (4.1-5.3); Red Cell Distribution Width 12.2 % (12.1-15.1); White Blood Count 5.6 10^3/uL (4.0-10.0)
[2021-02-11 05:41] LABS: Alanine Aminotransferase 10 U/L (0-41); Albumin Level 3.6 g/dL (3.5-5.2); Alkaline Phosphatase 48 IU/L (40-130); Aspartate Amino Transferase 11 U/L (0-40); Blood Urea Nitrogen 14 mg/dL (8-23); Calcium 8.8 mg/dL (8.5-10.5); Carbon Dioxide 25 mmol/L (22-29); Chloride 105 mmol/L (98-107); Globulin 2.5 g/dL (1.3-4.6); Glucose 176 mg/dL (65-115); Magnesium 1.9 mg/dL (1.7-2.3); Osmolality Calculated 293 mOsm/kg (285-295); Phosphorus 2.8 mg/dL (2.5-4.5); Sodium 139 mmol/L (136-145); Total Bilirubin 0.5 mg/dL (0.15-1.2); Total Protein 6.1 g/dL (6.6-8.7)
[2021-02-11 06:24] LABS: Glucose Point of Care 170 mg/dL (70-110)
--- NOTE | 2021-02-11 08:49 | USCV_ITS ---
Jim Thorpe Rey Age: 76 Gender: M : 1945 Exam Date: 02/11/2021 09:49 Ordering Phys: Isaac Baker MD Technologist: Yenifer Key Exam Location: [facility] [place] Indication: AFIB BP: 119 / 69 HR: 60 Rhythm: Sinus Technical Quality: Adequate MEASUREMENTS (Male / Female) Normal Values 2D ECHO LV Diastolic Diameter PLAX 4.4 cm 4.2 - 5.9 / 3.9 - 5.3 cm LV Systolic Diameter PLAX 2.6 cm IVS Diastolic Thickness 1.2 cm 0.6 - 1.0 / 0.6 - 0.9 cm IVS Systolic Thickness 1.7 cm LVPW Diastolic Thickness 1.1 cm 0.6 - 1.0 / 0.6 - 0.9 cm LVPW Systolic Thickness 1.5 cm LVOT Diameter 2.0 cm LV Ejection Fraction 2D Teich 71.0 % LV Ejection Fraction MOD 2C 69.2 % LV Ejection Fraction 2C AL 70.5 % LA Diameter 5.0 cm LA Width 4.4 cm LA Height 5.7 cm RA Width 4.5 cm RA Height 6.1 cm Aorta at Sinotubular Diameter 4.3 cm M-MODE LV Diastolic Diameter MM 6.2 cm 4.2 - 5.9 / 3.9 - 5.3 cm LV Systolic Diameter MM 4.2 cm LV Ejection Fraction MM Teich 58.6 % IVS Diastolic Thickness MM 1.3 cm 0.6 - 1.0 / 0.6 - 0.9 cm IVS Systolic Thickness MM 1.9 cm LVPW Diastolic Thickness MM 1.6 cm 0.6 - 1.0 / 0.6 - 0.9 cm LVPW Systolic Thickness MM 2.1 cm RV Diastolic Diameter MM 1.5 cm DOPPLER AV Peak Velocity 148.3 cm/s LVOT Peak Velocity 129.0 cm/s AV Area Cont Eq vti 2.8 cm squared AV Area Cont Eq pk 2.8 cm squared MV Area PHT 5.0 cm squared Mitral E to A Ratio 1.0 MV E' Velocity 43.0 cm/s Mitral E to MV E' Ratio 6.9 Mitral E to LV E' Lateral Ratio 6.7 Mitral E to LV E' Septal Ratio 7.2 TR Peak Velocity 215.7 cm/s TR Peak Gradient 18.6 mmHg TV Peak E Velocity 67.0 cm/s Right Atrial Pressure 3.0 mmHg Pulmonary Artery Systolic Pressu 21.6 mmHg FINDINGS Left Ventricle Normal left ventricular size and systolic function, EF 63 %. Mild left ventricular hypertrophy. No regional wall motion abnormalities. Grade I/IV diastolic dysfunction (abnormal relaxation filling pattern), normal to mildly elevated filling pressures. Right Ventricle The right ventricle is normal in size and function. Right Atrium The right atrium is normal in size. Left Atrium The left atrium is normal in size. Mitral Valve Thickened mitral valve. Aortic Valve Thickened aortic valve. Mild aortic valve regurgitation. Tricuspid Valve No gross abnormalities noted. Pulmonic Valve No gross abnormalities noted. Pericardium Normal pericardium without effusion. Aorta Mildly dilated aortic root measuring 4.3 cm at the level of the sinus CONCLUSIONS Normal left ventricular size and systolic function, EF 63 %. Mild left ventricular hypertrophy. No regional wall motion abnormalities. Grade I/IV diastolic dysfunction (abnormal relaxation filling pattern), normal to mildly elevated filling pressures. Thickened aortic and mitral valves. Mild aortic valve regurgitation. There is no pericardial effusion. There are no intracardiac masses. Mildly dilated aortic root measuring 4.3 cm at the level of the sinus Compared to the previous study from 06/18/2015, there may not be a significant change Dr Joseluis Lamar MD [facility] (Electronically Signed) Final Date: 12 February 2021 08:59 S
[2021-02-11] MEDS: insulin lispro 100 unit/1 mL SUBCUT ×2 (08:56→12:32)
[2021-02-11] MEDS: famotidine 20 mg Tablet PO (08:57)
[2021-02-11] MEDS: finasteride 5 mg Tablet PO (08:57)
[2021-02-11 08:58] VITALS: BP 119/69; PULSE 62; RESP 18; O2SAT 96
[2021-02-11] MEDS: amiodarone 200 mg Tablet PO (09:00)
[2021-02-11 09:09] VITALS: PULSE 62
[2021-02-11] MEDS: digoxin 125 mcg Tablet PO (09:09)
--- NOTE | 2021-02-11 09:38 | PC.CHAP ---
Pastoral Care Encounter/Spiritual Assessment Type of Contact [] Declined cashiers supervisor visit [] Patient/Family/Request visit [] Outpatient visit [] Follow-up visit [] Physician referral [] Code/Alert [x] Routine visit [] Staff referral [] Actively dying [] Patient sleeping [] Family support [] [] Out of room [] Palliative care [] [] Receiving care in room [] Pre-surgical visit [] Trauma [] Long length of stay [] ICU visit [x] Other: patient on phone... Relational/Emotional Strength [] Patient feels connected with others/family/visitors/staff [] Distress [] Loneliness/isolation [] Abandonment Spirituality of Patient [] Person of Sola [] Attends Sikhism of their Sola [] Believes in Prayer [] Reads Bible or Jehovah'S Witness materials [] There are Spiritual issues to be addressed Occupational Health Nurse Supervisor Interventions [x] Prayer [] Active listening [] Non-anxious presence [] Spiritual/emotional support [] Crisis/trauma care [] Spiritual counseling [] Bereavement support [] Provided bereavement packet [] Provided Bible/devotional materials [] Provided toy/stuffed animal, coloring book to patient or family member [] Provided Communion [] Anointing/[place] [] Salvation [x] Completed spiritual assessment [] Other: Impact on Illness or Injury [] Angry [] Fearful [] Anxious [] Often cries [] Exhaustion [] Unable to work [] Unable to attend confucianist [] Unable to walk/stand [] Unable to read [] Unable to drive [] Unable to eat/drink [] Unable to sleep [] Unable to be with family [] Patient intubated [] Other: Summary Time spent with patient
[2021-02-11 11:26] LABS: Glucose Point of Care 263 mg/dL (70-110)
[2021-02-11 12:34] VITALS: BP 119/69; PULSE 55; RESP 18; TEMP 36.5; O2SAT 92
--- NOTE | 2021-02-11 19:06 | P.DS_ITS ---
Discharge Providers Date of Admission: 02/10/21 11:57 Date of Discharge: February 11, 2021 Attending Provider at Admission: Jaime Mercado MD Attending Provider at Discharge: Isaac Baker Primary Care Provider: Deshaun Kelley MD Diagnoses at Discharge Discharge Diagnosis (1) Atrial fibrillation with rapid ventricular response: Status: Acute (2) Diabetes mellitus: Status: Acute (3) Atherosclerotic peripheral vascular disease: Status: Acute (4) Hypercholesterolemia: Status: Acute (5) BPH with obstruction/lower urinary tract symptoms: Status: Acute (6) Essential hypertension: Status: Acute (7) Ascending aortic aneurysm: Status: Acute Reason for Visit Reason for Visit: TACHY; DIZZY Hospital Course Hospital Course Very pleasant 76-year-old gentleman was admitted and treated after presenting with palpitations with noted atrial fibrillation with RVR, with multiple episodes in the past, previously requiring cardioversion, requiring admission to ICU. A. fib with RVR did not respond to Cardizem at presentation, on discussion of ER physician with cardiology was started on amiodarone drip, subsequently converting to sinus bradycardia at baseline rate in the 50s. Was transitioned to oral amiodarone. Heart rates additionally monitored through the day, remained steady in the 50s. 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 He is continued on dabigatran. He is feeling well today, ambulated without any issues, reports feeling much better and ready to return home. He is asked to follow-up with cardiology in office for reassessment. Please continue follow-up with regards to potential complications of amiodarone. Physical Exam Const: COMMON NORMALS: no acute distress, patient oriented x3 and alert GENERAL APPEARANCE: cooperative and comfortable ORIENTATION/CONSCIOUSNESS: Yes awake HENMT: COMMON NORMALS: oropharynx normal Neck/C-Spine: COMMON NORMALS: no JVD Resp: COMMON NORMALS: normal respiratory effort and clear to auscultation bilaterally AUSCULTATION: clear to auscultation bilaterally Cardio: COMMON NORMALS: no JVD, regular rhythm, S1 normal heart sound present, S2 normal heart sound present and No murmurs present (Cardio) RHYTHM: regular rhythm HEART SOUNDS: S1 normal heart sound present and S2 normal heart sound present GI: COMMON NORMALS: Normal to inspection, nondistended, normoactive bowel sounds present, Soft to palpation and non-tender PALPATION: Yes Soft to palpation Extremity: COMMON NORMALS: no joint enlargement and no pedal edema Neuro: COMMON NORMALS: patient oriented x3 and moves all extremities SENSORIUM/ORIENTATION: Yes alert Skin: COMMON NORMALS: no rashes or lesions noted GENERAL SKIN EXAM: no rashes or lesions noted Discharge Data Data Completed and Pending: Completed Studies During Hospitalization Category Date Time Status CT angio chest PE protcl [id number] Urge nt Cat Scan 02/10/21 10:33 Completed XR chest 1V angel [place]uis ble [id number] Stat Exams 02/10/21 08:31 Completed Pending at discharge Category Date Time Status CV. echo complete * [id number] Routine Ultrasound 02/11/21 08:49 Taken Labs from last 24 hours 02/11/21 02/11/21 02/11/21 11:17 06:19 04:55 WBC RBC Hgb Hct MCV MCH MCHC RDW Plt Count MPV Neut % (Auto) Lymph % (Auto) [place] % (Auto) Eos % (Auto) Baso % (Auto) Neut # (Auto) Lymph # (Auto) [place] # (Auto) Eos # (Auto) Baso # (Auto) Nucleated RBC % (a uto) Nucleated RBCs # Sodium 139 Potassium 4.0 Chloride 105 Carbon Dioxide 25 Anion Gap 13.0 BUN 14 Creatinine 0.8 GFR Calculation Not Reportable Glucose 176 H POC Glucose 263 H 170 H Calculated Osmolal ity 293 Calcium 8.8 Phosphorus 2.8 Magnesium 1.9 Total Bilirubin 0.5 AST 11 ALT 10 Alkaline Phosphata se 48 Total Protein 6.1 L Albumin 3.6 Globulin 2.5 02/11/21 04:55 WBC 5.6 RBC 4.27 Hgb 12.7 Hct 38.1 L MCV 89.2 MCH 29.7 MCHC 33.3 RDW 12.2 Plt Count 163 MPV 9.3 Neut % (Auto) 46.4 Lymph % (Auto) 40.7 [place] % (Auto) 7.7 Eos % (Auto) 3.7 Baso % (Auto) 1.1 Neut # (Auto) 2.61 Lymph # (Auto) 2.3 [place] # (Auto) 0.4 Eos # (Auto) 0.2 Baso # (Auto) 0.1 Nucleated RBC % (a uto) 0 Nucleated RBCs # 0.0 Sodium Potassium Chloride Carbon Dioxide Anion Gap BUN Creatinine GFR Calculation Glucose POC Glucose Calculated Osmolal ity Calcium Phosphorus Magnesium Total Bilirubin AST ALT Alkaline Phosphata se Total Protein Albumin Globulin Vitals: Last Vital Signs Temp 97.7 F 02/11/21 12:34 Pulse 55 L 02/11/21 12:34 Resp 18 02/11/21 12:34 BP 119/69 02/11/21 12:34 Pulse Ox 92 02/11/21 12:34 Discharge Plan Discharge Patient Disposition: Home Condition: Stable Prescriptions: New Pacerone 200 mg Tablet 200 mg PO BID Qty: 30 RF: 0 Continued tamsulosin 0.4 mg capsule 0.8 mg PO DAILY Qty: 180 RF: 3 finasteride 5 mg tablet 5 mg PO DAILY Qty: 90 RF: 3 Pradaxa 150 mg capsule 150 mg PO BID RF: 0 cholecalciferol (vitamin D3) 125 mcg (5,000 unit) capsule 125 mcg PO DAILY RF: 0 (DME) Accommodative Orthotics Bilaterally See Rx Instructions .Route .MEDSUPPLY Qty: 1 RF: 0 metformin 500 mg tablet 500 mg PO BID RF: 0 gabapentin 300 mg capsule 300 mg PO DAILY PRN (Reason: UNKNOWN) RF: 0 glipizide 5 mg tablet 5 mg PO BID RF: 0 (DME) Left AFO See Rx Instructions .Route .MEDSUPPLY Qty: 1 RF: 0 multivitamin [Multiple Vitamins] Tablet 1 tab PO DAILY RF: 0 Changed carvedilol 6.25 mg tablet 3.125 mg PO BID Qty: 0 RF: 0 Discontinued digoxin 125 mcg (0.125 mg) tablet 125 mcg PO DAILY RF: 0 Discharge Orders: Discharge Order (Routine); Ordered 02/11/21 Ordered By: Isaac Baker Referrals: Rl Caballero MD [Physician] - 2 weeks (Please follow-up with Dr. Caballero on at 12:45P.M. If you have any questions or need to reschedule. Please call ) Lupe Trejo FNP [Nurse Practitioner] - 1 week (Please follow-up with Lupe Trejo on Feb.18 at 12:45P.M. If you have any questions or need to reschedule. Please call ) Deshaun Kelley MD [Primary Care Provider] - 4-7 days (Please follow-up with Dr. Kelley on Thursday, at 9:40A.M. If you have any questions or need to reschedule. Please call [phone]) Discharge Diet: Cardiac and Diabetic Discharge Activity: Increase activity as tolerated Patient Instructions: Amiodarone (By mouth), A-fib (Atrial Fibrillation) (GEN) Activity Restrictions/Additional Instructions: Please follow-up with your primary doctor in office with regards to atrial fibrillation, as well as for control please discontinue digoxin. Decrease carvedilol dose to 3.125 mg twice a day. Please contact your mixing engineer office next week to discuss if you can decrease amiodarone dose down to 100 mg twice a day. Monitor heart rates at home 3 times daily, write down values to bring to your appointment with your heart doctor and primary doctor. If your heart rate becomes below 40 bpm, please hold carvedilol and and amiodarone and contact your mixing engineer's office or primary doctor office. If you become lightheaded, faint, or experience chest pain, or other concerning symptoms call 911 immediately. Please follow-up with your mixing engineer and primary doctor regarding final results of the ultrasound of your heart. Please have your primary doctor follow-up with regards to needed chronic monitoring with amiodarone including thyroid function, follow-up on liver parameters, lung assessment. Stable aneurysmal dilatation of the ascending aorta at 4.6 cm. And benign calcified granulomas disease. Discharge Attestations Time Spent in Discharge Care*: greater than 30 min Quality Metrics Clinical Quality Measures During this hospital stay, did patient experience: None Coding Level of Care Code Acute g FW DC note Diagnoses Atrial fibrillation with rapid ventricular response I48.91 Diabetes mellitus E11.9 Atherosclerotic peripheral vascular disease I70.209 Hypercholesterolemia E78.00 BPH with obstruction/lower urinary tract symptoms N40.1; N13.8 Essential hypertension I10 Ascending aortic aneurysm I71.2
--- NOTE | 2021-02-13 12:58 | PC.SOCIAL ---
when doing discharge follow up call spoke with patient and he was having a hard time cutting coreg. hand sign writer called coreg 3.125 into the pharmacy.
== END 2021-02-11 15:49 | disposition home or self-care (01) ==
LOC: ER 12:00 → CSU 02-11 07:04
PROVIDERS: Admitting Provider Family Medicine; Emergency Provider Family Medicine; PCP Family Medicine; Visit Provider Internal Medicine
DX: I48.91 Unspecified atrial fibrillation (principal); E11.51 Type 2 diabetes mellitus with diabetic peripheral angiopathy without gangrene; I70.209 Unspecified atherosclerosis of native arteries of extremities, unspecified extremity; E78.00 Pure hypercholesterolemia, unspecified; N40.1 Benign prostatic hyperplasia with lower urinary tract symptoms; I10 Essential (primary) hypertension; I71.4 Abdominal aortic aneurysm, without rupture; I95.1 Orthostatic hypotension; I08.2 Rheumatic disorders of both aortic and tricuspid valves; E78.5 Hyperlipidemia, unspecified; Z79.01 Long term (current) use of anticoagulants; Z79.84 Long term (current) use of oral hypoglycemic drugs
CPT/HCPCS: 36415; 36416; 71045; 71275; 80053; 80162; 81003; 82962; 83605; 83735; 83880; 84100; 84443; 84484; 85025; 85610; 93005; 93306; 94664; 96365; 96372; 96375; 96376; 99285; G0378; J0282; J1815; J3490; J7060; Q9967

== ENCOUNTER 2021-04-01 12:00 | Outpatient (CLI) | payer MEDICARE, SELFPAY | END 2021-04-01 12:01 | disposition home or self-care (01) | LOC: SLEEP 04-02 15:46 | PROVIDERS: PCP Family Medicine; Visit Provider Family Medicine | DX: G47.10 Hypersomnia, unspecified (principal) | CPT/HCPCS: G0399 ==

== ENCOUNTER → 2021-09-04 13:48 | Outpatient (BNVA) | payer MEDICARE, SELFPAY | PROVIDERS: PCP Family Medicine; Visit Provider Internal Medicine Cardiovascular Disease | DX: I48.0 Paroxysmal atrial fibrillation (principal); I44.0 Atrioventricular block, first degree; R00.1 Bradycardia, unspecified; I10 Essential (primary) hypertension; E11.9 Type 2 diabetes mellitus without complications; Z79.84 Long term (current) use of oral hypoglycemic drugs; Z87.891 Personal history of nicotine dependence; I71.2 Thoracic aortic aneurysm, without rupture | CPT/HCPCS: 99214 ==

== ENCOUNTER 2021-10-24 06:00 | Outpatient (RCR) | payer MEDICARE, SELFPAY | END 2021-11-17 23:59 | disposition home or self-care (01) | LOC: SPT 06:00 | PROVIDERS: PCP Family Medicine; Referring Provider Psychiatry & Neurology Neurology; Visit Provider Psychiatry & Neurology Neurology | DX: G20 Parkinson's disease (principal) | CPT/HCPCS: 97110; 97112; 97162 ==

== ENCOUNTER 2021-11-14 14:47 | Emergency (ER) | payer MEDICARE, SELFPAY ==
--- NOTE | 2021-11-14 15:30 | CT_ITS ---
WS: [id number] CT HEAD NONCONTRAST HISTORY: AMS/syncope/dizzy TECHNIQUE: Contiguous axial imaging performed through the brain in 2.5 mm imaging. Bone and soft tiss ue windows. Sagittal and coronal reformats reviewed. All CT scans at [facility] use at least one of these dose optimization techniques: automated exposure control; mA and/or kV adjustment per pa tient size (includes targeted exams where dose is matched to clinical indication); or iterative recon struction. DLP: 1139.98 mGy.cm COMPARISON: None available. No acute intracranial hemorrhage, midline shift or mass effect. Mild atrophy and small vessel ischemic disease. No prior infarct. Ventricles: Mild ventriculomegaly on the basis of atrophy. No inferior displacement of the cerebellar tonsils. Paranasal sinuses: As visualized are clear. Mastoid air cells: Prior LEFT mastoid partial resection. Calvarium and scalp: Skull is intact with no soft tissue edema or swelling. CT/CT head wo con* [id number] IMPRESSION: 1. No acute intracranial hemorrhage or edema. 2. Mild atrophy and small vessel ischemic disease.
--- NOTE | 2021-11-14 15:30 | ECG_ITS ---
[facility] Test Date: 2021-11-14 Pat Name: Rey Nguyen Department: Room: Gender: Male Under Presser: : 1945 Requested By: Koko Carlos Order Number: [id number] Dex MD: Joseluis Lamar M.D. Measurements Intervals [place] Rate: 53 P: 57 [place]: 205 QRS: -2 QRSD: 161 T: 3 QT: 503 QTc: 474 Interpretive Statements SINUS BRADYCARDIA WITH OCCASIONAL VENTRICULAR PREMATURE COMPLEXES RIGHT BUNDLE BRANCH BLOCK [120+ ms QRS DURATION, UPRIGHT V1, 40+ ms S IN I/aVL/V4/V5/V6] Compared to ECG 02/10/2021 14:27:59 Ventricular premature complex(es) now present Electronically Signed On 11-14-2021 21:29:25 CDT by Joseluis Lamar M.D. [id number]
--- NOTE | 2021-11-14 15:31 | XRR_ITS ---
PROCEDURE INFORMATION: Exam: XR Chest Exam date and time: 11/14/2021 4:27 PM Age: 76 years old Clinical indication: Cough and dyspnea; Additional info: Dyspnea/cough TECHNIQUE: Imaging protocol: Radiologic exam of the chest. Views: 1 view. COMPARISON: CR XR chest 1V portable [id number] 02/10/2021 9:04 AM FINDINGS: Lungs: Interval development of patchy atelectasis versus pneumonia in the left lower lobe and left lingula. Pleural spaces: No pleural effusion. No pneumothorax. Heart/Mediastinum: Stable moderate enlargement of the cardiac silhouette. Mediastinal contours are unremarkable. Vasculature: Stable vascular calcifications in the aorta. Stable tortuosity of the aorta. Bones/joints: Unremarkable for age. XR/XR chest 1V portable [id number] IMPRESSION: 1. Interval development of patchy atelectasis versus pneumonia in the left lower lobe and left lingula. Recommend clinical correlation. Recommend followup chest imaging to insure resolution of these findings. 2. Incidental/nonacute findings are listed in the report.
[2021-11-14] MEDS: sodium chloride 0.9% 500 ML 999 ML IV (15:40)
[2021-11-14 15:43] LABS: Basophils # 0.1 10^3/uL (0.0-0.1); Basophils % 0.7 %; Eosinophils # 0.1 10^3/uL (0.0-0.8); Eosinophils % 1.2 %; Hematocrit 45.8 % (42.0-52.0); Hemoglobin 15.8 g/dL (11.7-16.6); Lymphocytes # 2.3 10^3/uL (0.8-4.8); Lymphocytes % 31.6 %; Mean Corpuscular HGB Conc 34.5 g/dL (30.0-36.0); Mean Corpuscular Hemoglobin 31.3 pg (28.0-34.0); Mean Corpuscular Volume 90.9 fl (80-94); Mean Platelet Volume 9.7 fL (7.4-10.4); Monocytes # 0.6 10^3/uL (0.2-0.9); Monocytes % 7.8 %; Neutrophils # 4.27 10^3/uL (1.8-7.7); Neutrophils % 58.3 %; Nucleated Red Blood Cells % 0 %; Platelet Count 249 10^3/cmm (130-400); Red Blood Count 5.04 10^6/uL (4.1-5.3); Red Cell Distribution Width 12.8 % (12.1-15.1); White Blood Count 7.3 10^3/uL (4.0-10.0)
[2021-11-14 16:00] VITALS: BP 116/62; PULSE 52; RESP 16; TEMP 36.6; O2SAT 95; BMI 25.1
[2021-11-14 16:03] LABS: Troponin(5th) Baseline 15 ng/L (0-15)
[2021-11-14 16:05] LABS: Creatine Phosphokinase 72 U/L (39-308)
[2021-11-14 16:15] VITALS: BP 119/63; PULSE 53; RESP 16; O2SAT 97
--- NOTE | 2021-11-14 16:25 | ED_ITS ---
Documented by User: Koko Mcgill DO 11/24/21 06:15 HPI - Arrhythmia/Palpitations General: Chief Complaint: General Medical Stated Complaint: HYPERTENSION, DIZZY Time Seen by Provider: 11/14/21 15:16 Source: patient Mode of arrival: EMS Limitations: no limitations History of Present Illness: 76-year-old male presents to the emergency room with complaints of lightheadedness dizziness generally not feeling well having palpitations and being short of breath. EMS given 1500 mL prior to arrival. Patient has a history of atrial fibrillation as well Parkinson's he is on amiodarone Sinemet carvedilol and Xarelto. Patient also has a known diabetic. The time he arrives here he states he is feeling somewhat better. MD complaint: palpitations and atrial fibrillation Onset (ago): hour(s) Duration: intermittent Severity: moderate Context: occurred during rest and occurred during exertion Arrhythmia history: atrial fibrillation Associated symptoms: Reports anxiety; Deny cough, diaphoresis, muscle cramps, nausea, paresthesias, pre-syncope, sense of impending doom, short of breath, syncope or vomiting Review of Systems Const: Denies: fever(s), chills, fatigue, malaise or diaphoresis ENMT: Denies: throat pain, ear or mastoid pain, nasal discharge or nasal conge stion Card: Reports: palpitations and irregular heart rhythm; Denies: chest pain, edema, syncope or pre-syncope Resp: Denies: dyspnea, productive cough or non-productive cough GI: Denies: abdominal pain, nausea or vomiting : Denies: flank pain, difficulty urinating, dysuria, urinary frequency or urinary urgency Musc: Denies: muscle cramps Skin/Breast: Denies: rash or pruritus Psych: Reports: anxiety PFSH ED PFSH: Medical History (Updated 11/14/21 @ 17:55 by Koko Mcgill DO) Ascending aortic aneurysm Atherosclerotic peripheral vascular disease Atrial fibrillation Atrial fibrillation with rapid ventricular response BPH with obstruction/lower urinary tract symptoms Cataract Diabetes mellitus Erectile dysfunction Essential hypertension Hypercholesterolemia Incomplete emptying of bladder Intrathoracic aortic aneurysm Moderate aortic regurgitation Moderate tricuspid regurgitation by prior echocardiogram Surgical History S/P laminectomy S/P vasectomy Family History Other Cancer Diabetes Heart disease Stroke Social History Smoking and tobacco status: former smoker Alcohol intake: never Adopted: No Caregiver/support person: No Lives independently: No Household members: spouse Marital status: Current occupational status: retired Physical Exam Const: GENERAL APPEARANCE: cooperative and comfortable ORIENTATION/CONSCIOUSNESS: Yes awake, Yes oriented to person, Yes oriented to place and Yes oriented to time HENMT: COMMON NORMALS: normocephalic, atraumatic and hearing grossly normal bi laterally HEAD & SCALP: normocephalic and atraumatic Resp: COMMON NORMALS: normal respiratory effort, No retractions, No use of accessory muscles and clear to auscultation bilaterally AUSCULTATION: clear to auscultation bilaterally Cardio: COMMON NORMALS: regular rate and No murmurs present (Cardio) RATE: regular rate and bradycardic GI: COMMON NORMALS: Soft to palpation and No hepatosplenomegaly present AUSCULTATION: Yes normoactive bowel sounds PALPATION: Yes Soft to palpation, No Tenderness to palpation present (GI), No Guarding due to palpation present (GI) and Yes No hepatosplenomegaly present Extremity: COMMON NORMALS: normal to inspection, capillary refill normal, no clubbing, cyanosis or edema, no calf tenderness and no pedal edema Neuro: SENSORIUM/ORIENTATION: Yes oriented to person, Yes oriented to place and Yes oriented to time Skin: COMMON NORMALS: no rashes or lesions noted GENERAL SKIN EXAM: no rashes or lesions noted Course Vital Signs: Vital signs: Vital Signs Temperature 97.9 F 11/14/21 16:00 Pulse Rate 55 L 11/14/21 17:13 Respiratory Rate 16 11/14/21 17:13 Blood Pressure 108/57 11/14/21 17:13 Pulse Oximetry 95 11/14/21 17:13 Oxygen Delivery Me thod 11/14/21 17:13 MDM - Arrhythmia/Palpitations Medical Decision Making Patient sounds if he had a run of A. fib prior to arrival that he is in a normal sinus rhythm on his EKG when he arrives here his exam is unremarkable after fluids patient seems to feel better awake more lab work at this point. Care signed out to Dr. Chapman at change of shift. See final notes for diagnosis and disposition. Patient presents here with A. fib he had an episode of A. fib earlier he is in normal sinus rhythm here heart rate in the 50s he is been asymptomatic here b lood work here is normal he stable for discharge he is to follow-up with his radio dispatcher in 2 to 4 days and return if worsening he understands agrees to plan. Lab Data : 11/14/21 14:[address] 11/14/21 15:30 IMPRESSION: 1. No acute intracranial hemorrhage or edema. 2. Mild atrophy and small vessel ischemic disease. Chest X-Ray 11/14/21 15:31 IMPRESSION: 1. Interval development of patchy atelectasis versus pneumonia in the left lower lobe and left lingula. Recommend clinical correlation. Recommend followup chest imaging to insure resolution of these findings. 2. Incidental/nonacute findings are listed in the report. Laboratory Results WBC 7.3 10^3/uL (4.0-10.0) 11/14/21 14:20 RBC 5.04 10^6/uL (4.1-5.3) 11/14/21 14:20 Hgb 15.8 g/dL (11.7-16.6) 11/14/21 14:20 Hct 45.8 % (42.0-52.0) 11/14/21 14:20 MCV 90.9 fl (80-94) 11/14/21 14:20 MCH 31.3 pg (28.0-34.0) 11/14/21 14:20 MCHC 34.5 g/dL (30.0-36.0) 11/14/21 14:20 RDW 12.8 % (12.1-15.1) 11/14/21 14:20 Plt Count 249 10^3/cmm (130-400) 11/14/21 14:20 MPV 9.7 fL (7.4-10.4) 11/14/21 14:20 Neut % (Auto) 58.3 % 11/14/21 14:20 Lymph % (Auto) 31.6 % 11/14/21 14:20 [place] % (Auto) 7.8 % 11/14/21 14:20 Eos % (Auto) 1.2 % 11/14/21 14:20 Baso % (Auto) 0.7 % 11/14/21 14:20 Neut # (Auto) 4.27 10^3/uL (1.8-7.7) 11/14/21 14:20 Lymph # (Auto) 2.3 10^3/uL (0.8-4.8) 11/14/21 14:20 [place] # (Auto) 0.6 10^3/uL (0.2-0.9) 11/14/21 14:20 Eos # (Auto) 0.1 10^3/uL (0.0-0.8) 11/14/21 14:20 Baso # (Auto) 0.1 10^3/uL (0.0-0.1) 11/14/21 14:20 Nucleated RBC % (auto) 0 % 11/14/21 14:20 Nucleated RBCs # 0.0 /100WBC 11/14/21 14:20 Lactic Acid 1.4 mmol/L (0.5-2.2) 11/14/21 16:59 Creatine Kinase 72 U/L (39-308) 11/14/21 14:20 Troponin T Baseline 15 ng/L (0-15) 11/14/21 14:20 Troponin T 120 Minute 13.05 ng/L (0-15) 11/14/21 18:35 Delta Troponin T -1.95 ABS# (0-10) L 11/14/21 18:35 Urine Color Yellow (Yellow) 11/14/21 17:24 Urine Appearance Clear (CLEAR) 11/14/21 17:24 Urine pH 6 (5-7) 11/14/21 17:24 Ur Specific [place] 1.010 (1.005-1.030) 11/14/21 17:24 Urine Protein Neg (Negative) 11/14/21 17:24 Urine Glucose (UA) Norm (Normal) 11/14/21 17:24 Urine Ketones Negative (Negative) 11/14/21 17:24 Urine Blood Neg (Negative) 11/14/21 17:24 Urine Nitrate Negative (Negative) 11/14/21 17:24 Urine Bilirubin Neg (Negative) 11/14/21 17:24 Urine Urobilinogen Norm mg/dL (Negative) 11/14/21 17:24 Ur Leukocyte Esterase Negative (Negative) 11/14/21 17:24 Discharge Plan Discharge Patient Disposition: Home Clinical Impression: Atrial fibrillation, Diabetes mellitus Condition: Stable Prescriptions: Held carvedilol 3.125 mg tablet 3.125 mg PO BID PRN (Reason: HR >100 bpm) Qty: 180 3RF Hold Instructions: Resume on 11/21/21. No Action tamsulosin 0.4 mg capsule 0.8 mg PO DAILY Qty: 180 3RF Rx Instructions: [facility] finasteride 5 mg tablet 5 mg PO DAILY Qty: 90 3RF Rx Instructions: [facility] Pradaxa 150 mg capsule 150 mg PO BID Rx Instructions: [facility] (DME) Accommodative Orthotics Bilaterally See Rx Instructions .Route .MEDSUPPLY Qty: 1 0RF Rx Instructions: As directed metformin 500 mg tablet 500 mg PO BID Rx Instructions: [facility] gabapentin 300 mg capsule 300 mg PO DAILY PRN (Reason: UNKNOWN) Rx Instructions: [facility] glipizide 5 mg tablet 5 mg PO BID citalopram 10 mg tablet 10 mg PO DAILY carbidopa-levodopa 25-250 mg tablet 1 tab PO TID (DME) Left AFO See Rx Instructions .Route .MEDSUPPLY Qty: 1 0RF Rx Instructions: As directed Pacerone 200 mg tablet 200 mg PO BID Qty: 60 6RF multivitamin [Multiple Vitamins] Tablet 1 tab PO DAILY Discharge Orders: Discharge ED (Routine); Ordered 11/14/21 Ordered By: Koko Mcgill Referrals: Deshaun Kelley MD [Primary Care Provider] - Discharge Diet: Usual diet Discharge Activity: Limit activity as instructed Patient Instructions: A-fib (Atrial Fibrillation) (ED) Activity Restrictions/Additional Instructions: Case management will call to make arrangements for you to have a 48-hour Holter monitor. Follow-up with your radio dispatcher within the next week. If you have recurrent rapid heart rate and it is sustained Coding Level of Care Code ED Financial Analysis Manager for [employer] Documented by User: Randy Chapman MD 11/14/21 19:23 HPI - Arrhythmia/Palpitations General: Chief Complaint: General Medical Stated Complaint: HYPERTENSION, DIZZY Time Seen by Provider: 11/14/21 15:16 History of Present Illness: . PFSH ED PFSH: Medical History (Updated 11/14/21 @ 17:55 by Koko Mcgill DO) Ascending aortic aneurysm Atherosclerotic peripheral vascular disease Atrial fibrillation Atrial fibrillation with rapid ventricular response BPH with obstruction/lower urinary tract symptoms Cataract Diabetes mellitus Erectile dysfunction Essential hypertension Hypercholesterolemia Incomplete emptying of bladder Intrathoracic aortic aneurysm Moderate aortic regurgitation Moderate tricuspid regurgitation by prior echocardiogram Surgical History S/P laminectomy S/P vasectomy Family History Other Cancer Diabetes Heart disease Stroke Social History Smoking and tobacco status: former smoker Alcohol intake: never Adopted: No Caregiver/support person: No Lives independently: No Household members: spouse Marital status: Current occupational status: retired Course Vital Signs: Vital signs: Vital Signs Temperature 97.9 F 11/14/21 16:00 Pulse Rate 55 L 11/14/21 17:13 Respiratory Rate 16 11/14/21 17:13 Blood Pressure 108/57 11/14/21 17:13 Pulse Oximetry 95 11/14/21 17:13 Oxygen Delivery Me thod 11/14/21 17:13 MDM - Arrhythmia/Palpitations Medical Decision Making Patient presents here with A. fib he had an episode of A. fib earlier he is in normal sinus rhythm here heart rate in the 50s he is been asymptomatic here blood work here is normal he stable for discharge he is to follow-up with his radio dispatcher in 2 to 4 days and return if worsening he understands agrees to plan. Lab Data : 11/14/21 14:[address] 11/14/21 15:30 IMPRESSION: 1. No acute intracranial hemorrhage or edema. 2. Mild atrophy and small vessel ischemic disease. Chest X-Ray 11/14/21 15:31 IMPRESSION: 1. Interval development of patchy atelectasis versus pneumonia in the left lower lobe and left lingula. Recommend clinical correlation. Recommend followup chest imaging to insure resolution of these findings. 2. Incidental/nonacute findings are listed in the report. Laboratory Results WBC 7.3 10^3/uL (4.0-10.0) 11/14/21 14:20 RBC 5.04 10^6/uL (4.1-5.3) 11/14/21 14:20 Hgb 15.8 g/dL (11.7-16.6) 11/14/21 14:20 Hct 45.8 % (42.0-52.0) 11/14/21 14:20 MCV 90.9 fl (80-94) 11/14/21 14:20 MCH 31.3 pg (28.0-34.0) 11/14/21 14:20 MCHC 34.5 g/dL (30.0-36.0) 11/14/21 14:20 RDW 12.8 % (12.1-15.1) 11/14/21 14:20 Plt Count 249 10^3/cmm (130-400) 11/14/21 14:20 MPV 9.7 fL (7.4-10.4) 11/14/21 14:20 Neut % (Auto) 58.3 % 11/14/21 14:20 Lymph % (Auto) 31.6 % 11/14/21 14:20 [place] % (Auto) 7.8 % 11/14/21 14:20 Eos % (Auto) 1.2 % 11/14/21 14:20 Baso % (Auto) 0.7 % 11/14/21 14:20 Neut # (Auto) 4.27 10^3/uL (1.8-7.7) 11/14/21 14:20 Lymph # (Auto) 2.3 10^3/uL (0.8-4.8) 11/14/21 14:20 [place] # (Auto) 0.6 10^3/uL (0.2-0.9) 11/14/21 14:20 Eos # (Auto) 0.1 10^3/uL (0.0-0.8) 11/14/21 14:20 Baso # (Auto) 0.1 10^3/uL (0.0-0.1) 11/14/21 14:20 Nucleated RBC % (auto) 0 % 11/14/21 14:20 Nucleated RBCs # 0.0 /100WBC 11/14/21 14:20 Lactic Acid 1.4 mmol/L (0.5-2.2) 11/14/21 16:59 Creatine Kinase 72 U/L (39-308) 11/14/21 14:20 Troponin T Baseline 15 ng/L (0-15) 11/14/21 14:20 Troponin T 120 Minute 13.05 ng/L (0-15) 11/14/21 18:35 Delta Troponin T -1.95 ABS# (0-10) L 11/14/21 18:35 Urine Color Yellow (Yellow) 11/14/21 17:24 Urine Appearance Clear (CLEAR) 11/14/21 17:24 Urine pH 6 (5-7) 11/14/21 17:24 Ur Specific [place] 1.010 (1.005-1.030) 11/14/21 17:24 Urine Protein Neg (Negative) 11/14/21 17:24 Urine Glucose (UA) Norm (Normal) 11/14/21 17:24 Urine Ketones Negative (Negative) 11/14/21 17:24 Urine Blood Neg (Negative) 11/14/21 17:24 Urine Nitrate Negative (Negative) 11/14/21 17:24 Urine Bilirubin Neg (Negative) 11/14/21 17:24 Urine Urobilinogen Norm mg/dL (Negative) 11/14/21 17:24 Ur Leukocyte Esterase Negative (Negative) 11/14/21 17:24 Discharge Plan Discharge Patient Disposition: Home Clinical Impression: Atrial fibrillation, Diabetes mellitus Condition: Stable Prescriptions: Held carvedilol 3.125 mg tablet 3.125 mg PO BID PRN (Reason: HR >100 bpm) Qty: 180 3RF Hold Instructions: Resume on 11/21/21. No Action tamsulosin 0.4 mg capsule 0.8 mg PO DAILY Qty: 180 3RF Rx Instructions: [facility] finasteride 5 mg tablet 5 mg PO DAILY Qty: 90 3RF Rx Instructions: [facility] Pradaxa 150 mg capsule 150 mg PO BID Rx Instructions: [facility] for [facility] (DME) Accommodative Orthotics Bilaterally See Rx Instructions .Route .MEDSUPPLY Qty: 1 0RF Rx Instructions: As directed metformin 500 mg tablet 500 mg PO BID Rx Instructions: [facility] for [facility] gabapentin 300 mg capsule 300 mg PO DAILY PRN (Reason: UNKNOWN) Rx Instructions: [facility] for [facility] glipizide 5 mg tablet 5 mg PO BID citalopram 10 mg tablet 10 mg PO DAILY carbidopa-levodopa 25-250 mg tablet 1 tab PO TID (DME) Left AFO See Rx Instructions .Route .MEDSUPPLY Qty: 1 0RF Rx Instructions: As directed Pacerone 200 mg tablet 200 mg PO BID Qty: 60 6RF multivitamin [Multiple Vitamins] Tablet 1 tab PO DAILY Discharge Orders: Discharge ED (Routine); Ordered 11/14/21 Ordered By: Koko Mcgill Referrals: Deshaun Kelley MD [Primary Care Provider] - Discharge Diet: Usual diet Discharge Activity: Limit activity as instructed Patient Instructions: A-fib (Atrial Fibrillation) (ED) Activity Restrictions/Additional Instructions: Case management will call to make arrangements for you to have a 48-hour Holter monitor. Follow-up with your radio dispatcher within the next week. If you have recurrent rapid heart rate and it is sustained Coding Level of Care Code ED Financial Analysis Manager for [employer]
[2021-11-14 16:43] VITALS: BP 110/57; PULSE 64; RESP 18; O2SAT 96
[2021-11-14 17:13] VITALS: BP 108/57; PULSE 55; RESP 16; O2SAT 95
--- NOTE | 2021-11-14 17:30 | ECG_ITS ---
[facility] Test Date: 2021-11-14 Pat Name: Rey Nguyen Department: Room: Gender: Male Market Manager: : 1945 Requested By: Koko Carlos Order Number: [id number] Dex MD: Stacey Celsi M.D. Measurements Intervals [place] Rate: 59 P: 63 ID: [id number] QRS: 6 QRSD: 162 T: 30 QT: 492 QTc: 488 Interpretive Statements SINUS BRADYCARDIA WITH OCCASIONAL VENTRICULAR PREMATURE COMPLEXES RIGHT BUNDLE BRANCH BLOCK [120+ ms QRS DURATION, UPRIGHT V1, 40+ ms S IN I/aVL/V4/V5/V6] Compared to ECG 02/10/2021 14:27:59 Ventricular premature complex(es) now present Electronically Signed On 11-15-2021 10:39:37 CDT by Stacey Celis M.D. [id number]
[2021-11-14 17:33] LABS: Add Urine Microscopic? NO; Urine Appearance Clear (CLEAR); Urine Color Yellow (Yellow)
[2021-11-14 17:34] LABS: Bilirubin Urine Neg (Negative); Blood Urine Neg (Negative); Charge for UA Resulting for Rev; Glucose Urine UA Norm (Normal); Ketones Urine Negative (Negative); Leukocyte Esterase Urine Negative (Negative); Nitrate Urine Negative (Negative); Protein Urine Neg (Negative); Urobilinogen Urine Norm (Negative); pH Urine 6 (5-7)
[2021-11-14 17:58] LABS: Lactic Sepsis W/Reflex 1.4 mmol/L (0.5-2.2)
[2021-11-14 19:16] LABS: Troponin 5 2HR 13.05 ng/L (0-15)
[2021-11-14 19:39] LABS: Troponin 5 2HR Delta -1.95 ABS# (0-10)
== END 2021-11-14 19:32 | disposition home or self-care (01) ==
PROVIDERS: Family Medicine; Emergency Provider Emergency Medicine; PCP Family Medicine
DX: I48.91 Unspecified atrial fibrillation (principal); E11.9 Type 2 diabetes mellitus without complications; Z79.84 Long term (current) use of oral hypoglycemic drugs; I10 Essential (primary) hypertension; Z87.891 Personal history of nicotine dependence
CPT/HCPCS: 70450; 71045; 81003; 82550; 83605; 84484; 85025; 87040; 93005; 96360; 99285; J7040

== ENCOUNTER 2021-11-18 06:00 | Outpatient (RCR) | payer MEDICARE, SELFPAY | END 2021-12-16 23:59 | disposition home or self-care (01) | LOC: SPT 06:00 | PROVIDERS: PCP Family Medicine; Visit Provider Psychiatry & Neurology Neurology | DX: G20 Parkinson's disease (principal) | CPT/HCPCS: 97110; 97112 ==

== ENCOUNTER → 2022-01-01 14:19 | Outpatient (BNVA) | payer MEDICARE, SELFPAY | PROVIDERS: PCP Family Medicine; Visit Provider Internal Medicine Cardiovascular Disease | DX: I48.91 Unspecified atrial fibrillation (principal); I10 Essential (primary) hypertension; E11.9 Type 2 diabetes mellitus without complications; Z79.84 Long term (current) use of oral hypoglycemic drugs; E78.00 Pure hypercholesterolemia, unspecified; I71.2 Thoracic aortic aneurysm, without rupture; Z87.891 Personal history of nicotine dependence | CPT/HCPCS: 99214 ==

== ENCOUNTER 2022-01-14 08:59 | Outpatient (CLI) | payer MEDICARE, OTHER, SELFPAY ==
--- NOTE | 2022-01-14 | ECG_ITS ---
Test Date: 2022-01-14 Pat Name: Rey Nguyen Department: Room: Gender: Male Drag Sawyer: : 1945 Requested By: Stacey Celis Order Number: [id number] Dex MD: Stacey Celis M.D. Interpretive Statements NAME OF STUDY: LEXISCAN SESTAMIBI STRESS TEST INDICATION: Chest Pain, shortness of breath PROCEDURE: At the baseline, the blood pressure was 129/72 mmHg with a heart rate of 51 bpm and oxygen saturation 89%. The electrocardiogram showed sinus rhythm, right axis deviation. Right bundle branch block. The Lexiscan was infused over a period of 20 seconds. A total of 0.4 milligrams of Lexiscan was infused. The stress phase was continued for a total of 5 minutes. Heart rate at the end of the stress phase was 60 bpm, oxygen saturation 91% with a blood pressure of 101/55 mmHg. The EKG at the peak infusion revealed sinus rhythm with no significant ST-T wave changes. The study was terminated due to protocol completion. Sestamibi was injected 20 seconds after the Lexiscan infusion. Blood pressure at the end of the recovery phase was 103/57 mmHg, oxygen saturation 93% with a heart rate of 60 beats per minute. CONCLUSION: 1. No significant EKG changes with the LexiScan infusion. 2. No LexiScan induced chest pain or cardiac arrhythmia. 3. Normal blood pressure and heart rate response. 4. Sestamibi/sestamibi perfusion scan pending; see separate report. Electronically Signed On 01-15-2022 16:20:46 CDT by Stacey Celis M.D. [id number]
[2022-01-14 09:20] VITALS: BMI 25.1
--- NOTE | 2022-01-14 09:34 | NMCV_ITS ---
NM elmer perf SPECT r/s* [id number] Rey Nguyen Age: 76 Gender: M : 1945 Exam Date: 01/14/2022 10:37 Ordering Phys: Stacey Celis MD ([email or web address]) Technologist: GEORGE Benitez Exam Location: [facility] Indications: CHEST PAIN STRESS TEST Please see separate stress test report in [facility] for full findings IMAGE PROTOCOL Rest/Stress 1 Lexiscan Day Radiopharmaceutical Dose (mCi) Administration Site Administered by Rest: Tc-99m 11.0 IV GEORGE Benitez Sestamibi Stress:Tc-99m 32.5 IV GEORGE Bonds Sestamibi Rest: 14-Jan-2022 60 Discovery 630 Stress: 14-Jan-2022 30 Discovery 630 0.4mg Lexiscan. Images obtained in supine and prone position. SPECT RESULTS Technical Quality: Excellent Raw Data Analysis: Normal Image Corrections: No attenuation or motion correction applied Summed Stress Score: 0 Summed Rest Score: 3 Summed Difference Score: 0 PERFUSION FINDINGS Small sized perfusion abnormality of basal to mid inferior wall on rest images with improved tracer uptake on stress images. This is suggestive of attenuation artifact. FUNCTIONAL RESULTS (calculated via Gated SPECT) Stress Image LV EF (%): 70 Stress EDV (mL):146 TID: 1.01 Stress ESV (mL):44 FUNCTIONAL FINDINGS: The left ventricle is normal in size. Transient Ischemia Dilatation of 1. There is normal left ventricular systolic function. The left ventricular ejection fraction is normal with a value of 70%. There is normal left ventricular wall thickening. IMPRESSIONS 1. Myocardial perfusion imaging is normal. 2. Overall left ventricular systolic function is normal without regional wall motion abnormalities, LVEF=70%. 3. No EKG changes with Lexiscan infusion. Refer to separate report for details. Stacey Celis MD (Electronically Signed) Final Date: 15 January 2022 16:39 S
[2022-01-14] MEDS: regadenoson 0.4 Mg/5 ml Syringe IVP (11:06)
[2022-01-14 11:19] VITALS: BP 103/57; PULSE 60
== END 2022-01-14 09:00 | disposition home or self-care (01) ==
PROVIDERS: PCP Family Medicine; Visit Provider Internal Medicine Cardiovascular Disease
DX: R07.9 Chest pain, unspecified (principal)
CPT/HCPCS: 78452; 93017; A9500; J2785

== ENCOUNTER → 2022-01-24 10:07 | Outpatient (BNVA) | payer MEDICARE, OTHER, SELFPAY | PROVIDERS: PCP Family Medicine; Visit Provider Family Medicine | DX: Z00.00 Encounter for general adult medical examination without abnormal findings (principal); R25.2 Cramp and spasm; E11.9 Type 2 diabetes mellitus without complications; I10 Essential (primary) hypertension; Z13.220 Encounter for screening for lipoid disorders; Z51.81 Encounter for therapeutic drug level monitoring; R26.81 Unsteadiness on feet; G20 Parkinson's disease | CPT/HCPCS: 80053; 80061; 83036; 83735; 85025 ==

== ENCOUNTER 2022-02-24 06:00 | Outpatient (RCR) | payer MEDICARE, OTHER, SELFPAY | END 2022-03-19 23:59 | disposition home or self-care (01) | LOC: SPT 06:00 | PROVIDERS: PCP Family Medicine; Visit Provider Family Medicine | DX: R26.81 Unsteadiness on feet (principal); G20 Parkinson's disease | CPT/HCPCS: 97110; 97112; 97162 ==

== ENCOUNTER 2022-03-20 06:00 | Outpatient (RCR) | payer MEDICARE, OTHER, SELFPAY | END 2022-04-08 23:59 | disposition home or self-care (01) | LOC: SPT 06:00 | PROVIDERS: PCP Family Medicine; Visit Provider Family Medicine | DX: R26.81 Unsteadiness on feet (principal); G20 Parkinson's disease | CPT/HCPCS: 97110; 97112 ==

== ENCOUNTER 2022-06-10 08:27 | Outpatient (CLI) | payer OTHER, SELFPAY ==
--- NOTE | 2022-06-10 | USCV_ITS ---
Rey Nguyen Age: 77 Gender: M : 1945 Exam Date: 06/10/2022 10:56 Ordering Phys: Coleen Kilgore MD Technologist: ANTONIO [place]am [place] [facility] [place]ication: LE PAIN AND WEAKNESS Risk Factors: Previous Vascular Surgery: RIGHT LEFT BP: 135.0 / 70.00 BP: 135.0/ 90.00 0 0 Waveform Velocity (cm/s) Velocity (cm/s) Waveform Triphasic 78.8 Iliac Prox 71.9 Triphasic Triphasic 78.0 Iliac Mid 58.0 Triphasic Triphasic Iliac Distal Triphasic 75.5 68.3 Triphasic 88.6 ONION TIER 79.4 Triphasic Triphasic 103.6 SFA Prox 84.7 Triphasic Triphasic 100.3 SFA Mid 80.8 Triphasic Triphasic 95.9 SFA Dist 73.8 Triphasic Triphasic 59.3 POP 35.2 Triphasic Triphasic 71.6 ESCROW SECRETARY 62.1 Triphasic Biphasic 49.3 DPA 56.7 Biphasic 1.1 ALBA 1.1 FINDINGS 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 Moderate mural thrombus was noted in the aneurysm. Resting ALBA of 1.1 bilaterally CONCLUSIONS 1. 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 Normal resting ABIs bilaterally suggesting no significant arterial obstruction Tried to contact Dr Kilgore - un succesful. Please send the report to the office [facility] Dr Joseluis Lamar MD [facility] (Electronically Signed) Final Date: 13 June 2022 09:28 S
== END 2022-06-10 08:28 | disposition home or self-care (01) ==
LOC: RAD 08:27
PROVIDERS: PCP Family Medicine; Visit Provider Family Medicine
DX: I70.213 Atherosclerosis of native arteries of extremities with intermittent claudication, bilateral legs (principal)
CPT/HCPCS: 93925

== ENCOUNTER 2022-07-18 16:01 | Outpatient (CLI) | payer OTHER, SELFPAY ==
--- NOTE | 2022-07-18 16:22 | MR_ITS ---
WS: [id number] MRI LUMBAR SPINE WITH AND WITHOUT CONTRAST HISTORY: HX OF L-SPINE SURGERY/RIGHT LEG PAIN, lumbar spine surgery 10 years ago. COMPARISON: 09/14/2012 TECHNIQUE: Sagittal and axial multisequence imaging is submitted. Postcontrast imaging, MultiHance 20 mL IV. Mild curvature lumbar spine. Since the prior examination prior posterior lumbar fusion extends from L3 to L5. Bilateral pedicle sc rews with interbody spacers at L3-4 and L4-5. No acute fracture or marrow edema. Disc spaces are narrowed and desiccated, most significant at L5-S1. Conus terminates normally at L1. L1-L2: Mild facet arthritis. Very mild bilateral foraminal narrowing, LEFT greater than RIGHT. L2-L3: Moderate annular disc bulging with a small central disc protrusion and annular fissure. Marked facet joint arthritis and ligamentum flavum hypertrophy. Encroachment by facet disease upon the post erior lateral thecal sac. There is deformity of the thecal sac. Severe central and bilateral subartic ular recess stenosis and mild LEFT foraminal stenosis. This is a significant progression since the pr ior study. L3-L4: Posterior laminectomy defect. No significant stenosis. Mild clumping of the nerve roots. L4-L5: Large posterior laminectomy defect. Mild bilateral foraminal stenosis. Stenosis and encroachme nt is predominantly due to osteophyte and facet disease. No disc protrusion. L5-S1: LEFT laminectomy defect. Facet joint arthritis. Very slight enlargement of the LEFT S1 nerve r oot. Moderate LEFT foraminal stenosis. Mild progression since the prior study. Paravertebral soft tissues are negative. No discitis or osteomyelitis is identified. No enhancing mas ses. MR/MR lumbar spine wo/w con [id number] IMPRESSION: 1. Status post posterior lumbar fusion from L3 to L5 with interbody spacers at L3-4 and L4-5. 2. Large posterior laminectomy defects from L3 to L5. 3. New severe central with bilateral subarticular recess stenosis at L2-3. The re is severe encroachment upon the thecal sac, due to combination of disc disea se and marked facet and ligamentum flavum encroachment. 4. Moderate LEFT foraminal stenosis at L5-S1. 5. No discitis or osteomyelitis.
[2022-07-18] MEDS: gadobenate dimeglumine 20 mL vial IV (17:05)
== END 2022-07-18 16:02 | disposition home or self-care (01) ==
LOC: RAD 16:05
PROVIDERS: PCP Family Medicine; Visit Provider Family Medicine
DX: M79.604 Pain in right leg (principal); M48.07 Spinal stenosis, lumbosacral region; M48.061 Spinal stenosis, lumbar region without neurogenic claudication; M43.26 Fusion of spine, lumbar region
CPT/HCPCS: 72158; A9577

== ENCOUNTER → 2022-10-01 14:14 | Outpatient (BNVA) | payer OTHER, SELFPAY | PROVIDERS: PCP Family Medicine; Visit Provider Internal Medicine Cardiovascular Disease | DX: Z01.810 Encounter for preprocedural cardiovascular examination (principal); I48.91 Unspecified atrial fibrillation; I10 Essential (primary) hypertension; E11.9 Type 2 diabetes mellitus without complications; Z87.891 Personal history of nicotine dependence; Z79.84 Long term (current) use of oral hypoglycemic drugs | CPT/HCPCS: 99214 ==

== ENCOUNTER → 2022-10-20 10:46 | Outpatient (BNVA) | payer MEDICARE, OTHER, SELFPAY | PROVIDERS: PCP Family Medicine; Visit Provider Family Medicine | DX: E11.9 Type 2 diabetes mellitus without complications (principal); R35.0 Frequency of micturition; E55.9 Vitamin D deficiency, unspecified; Z13.220 Encounter for screening for lipoid disorders; Z51.81 Encounter for therapeutic drug level monitoring | CPT/HCPCS: 80053; 80061; 82306; 83036; 84153; 85025 ==

== ENCOUNTER 2022-11-03 20:31 | Emergency (ER) | payer OTHER, SELFPAY ==
[2022-11-03 20:32] VITALS: BP 115/70; PULSE 56; RESP 18; TEMP 36.7; O2SAT 93; BMI 27.8
--- NOTE | 2022-11-03 20:44 | CTR_ITS ---
PROCEDURE INFORMATION: Exam: CT Head Without Contrast Exam date and time: 11/03/2022 8:59 PM Age: 77 years old Clinical indication: Injury or trauma; Fall; Blunt trauma (contusions or hematomas) TECHNIQUE: Imaging protocol: Computed tomography of the head without contrast. Radiation optimization: All CT scans at this facility use at least one of these dose optimization techniques: automated exposure control; mA and/or kV adjustment per patient size (includes targeted exams where dose is matched to clinical indication); or iterative reconstruction. REPORTING DATA: Count of CT and Cardiac NM exams in prior 12 months: This patient has received 2 known CTs and 0 known cardiac nuclear medicine studies in the 12 months prior to the current study. COMPARISON: CT head wo con* [id number] 11/14/2021 3:52 PM RADIATION DOSE METRICS: Total DLP (mGy-cm): 1110.28 FINDINGS: Brain: There is good fuchs-white matter differentiation. There are no intra or extra-axial masses or collections. There is no midline shift. There is age-appropriate atrophy and findings of small vessel ischemic disease. The cerebellum is within normal limits with no evidence of herniation. Cerebral ventricles: There is mild ventriculomegaly. This is secondary to the atrophy. Paranasal sinuses: The visualized paranasal sinuses are patent, well pneumatized with no air-fluid levels. The ossicles are within normal limits. Mastoid air cells: The right mastoid air cells are well aerated. On the left, the prior partial resection of the mastoid is again noted and remains unchanged. Bones/joints: There is no fracture noted. Soft tissues: There is no abnormal soft tissue swelling noted. CT/CT head wo con* [id number] IMPRESSION: No acute intracranial pathology noted.
--- NOTE | 2022-11-03 20:47 | ED_ITS ---
HPI - Fall General: Chief Complaint: Fall Stated Complaint: FALL Time Seen by Provider: 11/03/22 20:33 Source: patient and EMS Mode of arrival: EMS Limitations: no limitations History of Present Illness: 77-year-old male who is here from a local halfway. He states that he had had a fall at the halfway today that was unwitnessed. Per EMS halfway states he has been having some confusion since he is arrived there from the hospital after recent low back surgery. Patient here though is ANO x4 he is able answer all my questions appropriately is not confused. States he did hit his head when he fall he denies any loss consciousness has a mild headache. Denies any pain elsewhere. Associated symptoms-after fall: Reports headache(s); Denies abdominal pain, chest pain or neck pain Review of Systems Const: Denies: fever(s), chills, body aches or change in appetite Eyes: Denies: eye discomfort ENMT: Denies: throat pain or dental pain Card: Denies: chest pain Resp: Denies: dyspnea GI: Denies: abdominal pain, nausea, vomiting or diarrhea Musc: Denies: neck pain Skin/Breast: Denies: rash Neuro: Reports: headache(s) PFSH ED PFSH: Medical History Ascending aortic aneurysm Atherosclerotic peripheral vascular disease Atrial fibrillation Atrial fibrillation with rapid ventricular response BPH with obstruction/lower urinary tract symptoms Cataract Diabetes mellitus Erectile dysfunction Essential hypertension Hypercholesterolemia Incomplete emptying of bladder Intrathoracic aortic aneurysm Moderate aortic regurgitation Moderate tricuspid regurgitation by prior echocardiogram Surgical History S/P laminectomy S/P vasectomy Family History Other Cancer Diabetes Heart disease Stroke Social History Smoking and tobacco status: former smoker Alcohol intake: never Substance/Drug Use: unknown Adopted: No Caregiver/support person: No Lives independently: No Household members: spouse Marital status: Current occupational status: retired Physical Exam Const: COMMON NORMALS: no acute distress, patient oriented x3 and healthy appearing HENMT: COMMON NORMALS: normocephalic and atraumatic HEAD & SCALP: normocephalic and atraumatic Eye: COMMON NORMALS: Equal, round and reactive pupils present and EOMs intact bilaterally PUPIL: Yes Equal, round and reactive pupils present Neck/C-Spine: COMMON NORMALS: full ROM and supple Chest: COMMONS NORMALS: normal inspection of the chest and normal palpation of entire chest wall Resp: COMMON NORMALS: normal respiratory effort, No retractions, No use of accessory muscles and clear to auscultation bilaterally AUSCULTATION: clear to auscultation bilaterally Cardio: COMMON NORMALS: regular rate, regular rhythm and No murmurs present (Cardio) RATE: regular rate RHYTHM: regular rhythm GI: COMMON NORMALS: Normal to inspection, nondistended, normoactive bowel sounds present, Soft to palpation, non-tender and no masses PALPATION: Yes Soft to palpation Extremity: COMMON NORMALS: normal to inspection and full ROM Neuro: COMMON NORMALS: patient oriented x3, moves all extremities and no focal motor deficits Psych: COMMON NORMALS: mental status grossly normal, Normal thought process present and cooperative THOUGHT PROCESS: Normal thought process present Skin: COMMON NORMALS: no rashes or lesions noted and no wounds GENERAL SKIN EXAM: no rashes or lesions noted Course Vital Signs: Vital signs: Vital Signs Temperature 98.1 F 11/03/22 20:32 Pulse Rate 56 L 11/03/22 20:32 Respiratory Rate 18 11/03/22 20:32 Blood Pressure 115/70 11/03/22 20:32 Pulse Oximetry 93 11/03/22 20:32 Oxygen Delivery Me thod Room Air 11/03/22 20:32 MDM - Fall Medical Decision Making Patient presents here with a closed head injury from a fall CT head here normal he has no other signs of injury he is stable for discharge she is to follow-up with PCP and return if worsening. Medical Records I reviewed the patient's medical records. Lab Data I reviewed the patient's lab results. Radiology Impressions Head CT 11/03/22 20:44 IMPRESSION: No acute intracranial pathology noted. Discharge Plan Discharge Patient Disposition: Home Clinical Impression: CHI (closed head injury), Fall Condition: Stable Prescriptions: No Action tamsulosin 0.4 mg capsule 0.8 mg PO DAILY Qty: 180 3RF Rx Inst[facility]: [facility] Pradaxa 150 mg capsule 150 mg PO BID Rx Instructions: [facility] carbidopa-levodopa 25-250 mg tablet 0.5 tab PO TID cholecalciferol (vitamin D3) 50 mcg (2,000 unit) capsule 50 mcg PO DAILY Qty: 30 6RF gabapentin 300 mg capsule 300 mg PO TID PRN ondansetron HCl 4 mg tablet 4 mg PO Q8H PRN (Reason: nausea and vomiting) Qty: 60 3RF citalopram 10 mg tablet 10 mg PO DAILY finasteride 5 mg tablet 5 mg PO DAILY Rx Instructions: [facility] metformin 500 mg tablet 500 mg PO BID Pacerone 200 mg tablet 200 mg PO BID Qty: 180 2RF glipizide 5 mg tablet 5 mg PO DAILY Qty: 90 3RF multivitamin [Multiple Vitamins] Tablet 1 tab PO DAILY hydromorphone 1 mg/mL Liquid 0.25 mg PO PRN PRN (Reason: Back Pain) Rx Instructions: IVP Humalog U-100 Insulin 100 unit/mL Solution See Rx Instructions .ROUTE .COMPLEX Rx Instructions: medium correction SS Discharge Orders: Discharge ED (Routine); Ordered 11/03/22 Ordered By: Randy Chapman Referrals: Deshaun Kelley MD [Primary Care Provider] - 1-3 days Discharge Diet: Advance as tolerated Discharge Activity: Resume usual activity Patient Instructions: Head Injury (ED) Coding Level of Care Code ED Autographer for Fozia Dalton
[2022-11-03 21:45] VITALS: BP 121/60; PULSE 55; RESP 21; O2SAT 92
[2022-11-03 22:21] VITALS: BP 119/68; PULSE 55; RESP 22; O2SAT 92
== END 2022-11-03 22:21 | disposition home or self-care (01) ==
PROVIDERS: Emergency Provider Emergency Medicine; PCP Family Medicine
DX: S09.8XXA Other specified injuries of head, initial encounter (principal); Z79.84 Long term (current) use of oral hypoglycemic drugs; Z79.4 Long term (current) use of insulin; E11.9 Type 2 diabetes mellitus without complications; I10 Essential (primary) hypertension; Z87.891 Personal history of nicotine dependence; W19.XXXA Unspecified fall, initial encounter; Y92.129 Unspecified place in nursing home as the place of occurrence of the external cause
CPT/HCPCS: 70450; 99284

== ENCOUNTER 2022-11-04 04:42 | Emergency (ER) | payer OTHER, SELFPAY ==
[2022-11-04 04:49] VITALS: BP 110/63; PULSE 60; RESP 20; TEMP 36.8; O2SAT 90; BMI 27.8
--- NOTE | 2022-11-04 04:54 | CTR_ITS ---
PROCEDURE INFORMATION: Exam: CT Abdomen And Pelvis Without Contrast Exam date and time: 11/04/2022 5:07 AM Age: 77 years old Clinical indication: Other: Low back pain; Additional info: Fall TECHNIQUE: Imaging protocol: Computed tomography of the abdomen and pelvis without contrast. Radiation optimization: All CT scans at this facility use at least one of these dose optimization techniques: automated exposure control; mA and/or kV adjustment per patient size (includes targeted exams where dose is matched to clinical indication); or iterative reconstruction. REPORTING DATA: Count of CT and Cardiac NM exams in prior 12 months: This patient has received 3 known CTs and 0 known cardiac nuclear medicine studies in the 12 months prior to the current study. COMPARISON: MR lumbar spine wo/w con [id number] 07/18/2022 4:37 PM RADIATION DOSE METRICS: Total DLP (mGy-cm): 846.48 FINDINGS: Tubes, catheters and devices: Serna catheter is present but the balloon seems to be insufflated within the prostatic urethra. The distal tip of the catheter extends into the bladder lumen. Lungs: Scattered patchy ground-glass parenchymal airspace opacities. Pleural spaces: Trace volume right pleural effusion. Heart: Multichamber cardiac dilation. Negative for pericardial effusion. Coronary arteries: Large volume coronary artery calcifications. Diaphragm: Elevated right diaphragm. Liver: Normal. No mass. Gallbladder and bile ducts: Normal. No calcified stones. No ductal dilation. Pancreas: Normal. No ductal dilation. Spleen: Normal. No splenomegaly. Adrenal glands: Normal. No mass. Kidneys and ureters: Normal. No hydronephrosis. Stomach and bowel: Diverticulosis coli. Large colonic fecal volume. No inflammatory bowel wall thickening. Negative for bowel obstruction or perforation. Appendix: No evidence of appendicitis. Intraperitoneal space: Unremarkable. No free air. No significant fluid collection. Vasculature: Unremarkable. No abdominal aortic aneurysm. Lymph nodes: Unremarkable. No enlarged lymph nodes. Urinary bladder: Bladder is decompressed with thick-walled appearance. Reproductive: Moderate severity prostatomegaly. Bones/joints: Negative for lumbar spine or pelvic fracture. L2 through L5 posterior fusion changes without complication. Soft tissues: Unremarkable. CT/CT abdomen pelvis wo con [id number] IMPRESSION: 1. Negative for acute abdominopelvic injury. 2. Malpositioning of Serna catheter with balloon insufflation within the prostatic urethra. Repositioning recommended.
--- NOTE | 2022-11-04 04:58 | CTR_ITS ---
PROCEDURE INFORMATION: Exam: CT Lumbar Spine Without Contrast Exam date and time: 11/04/2022 5:11 AM Age: 77 years old Clinical indication: Low back pain; Additional info: Fall TECHNIQUE: Imaging protocol: Computed tomography of the lumbar spine without contrast. Radiation optimization: All CT scans at this facility use at least one of these dose optimization techniques: automated exposure control; mA and/or kV adjustment per patient size (includes targeted exams where dose is matched to clinical indication); or iterative reconstruction. REPORTING DATA: Count of CT and Cardiac NM exams in prior 12 months: This patient has received 3 known CTs and 0 known cardiac nuclear medicine studies in the 12 months prior to the current study. COMPARISON: MR lumbar spine wo/w con [id number] 07/18/2022 4:37 PM RADIATION DOSE METRICS: Total DLP (mGy-cm): 860.7 FINDINGS: Bones/joints: Negative for acute lumbar spine fracture. Unremarkable alignment. L2 through L5 posterior fusion without evidence of complication. L2 through L5 laminectomy. Diffuse spondyloarthropathy changes. Soft tissues: Unremarkable. CT/CT lumbar spine wo con* [id number] IMPRESSION: Negative for acute lumbar spine fracture.
[2022-11-04 05:06] LABS: Basophils % 0.4 %; Eosinophils # 0.1 10^3/uL (0.0-0.8); Hematocrit 36.7 % (42.0-52.0); Lymphocytes # 0.9 10^3/uL (0.8-4.8); Lymphocytes % 10.9 %; Mean Corpuscular HGB Conc 32.7 g/dL (30.0-36.0); Mean Corpuscular Hemoglobin 30.1 pg (28.0-34.0); Mean Platelet Volume 8.7 fL (7.4-10.4); Monocytes # 0.8 10^3/uL (0.2-0.9); Monocytes % 9.7 %; Neutrophils # 6.05 10^3/uL (1.8-7.7); Neutrophils % 76.5 %; Nucleated Red Blood Cells % 0 %; Platelet Count 264 10^3/cmm (130-400); Red Blood Count 3.99 10^6/uL (4.1-5.3); White Blood Count 7.9 10^3/uL (4.0-10.0)
--- NOTE | 2022-11-04 05:09 | W.ED.FALL ---
HPI - Fall General: Chief Complaint: Fall Stated Complaint: Fall, low back pain Time Seen by Provider: 11/04/22 04:47 Source: patient and EMS Mode of arrival: EMS Limitations: altered mental status History of Present Illness: 77-year-old male is here from local detention he had a recent lumbar surgery he does have some confusion he has had confusion for some time history is limited from him and seen him earlier today after a fall his head CT was normal per nursing ways fall twice more since then has complained of some low back pain and now has blood out of his Serna. He does state he has some slight back pain and has no other complaints at this time. Associated symptoms-after fall: Reports hematuria; Denies abdominal pain, chest pain, headache(s) or neck pain Review of Systems Const: Denies: fever(s), chills, body aches or change in appetite ENMT: Denies: throat pain or dental pain Card: Denies: chest pain Resp: Denies: dyspnea GI: Denies: abdominal pain, nausea, vomiting or diarrhea : Reports: hematuria Musc: Reports: back pain; Denies: neck pain Skin/Breast: Denies: rash Neuro: Denies: headache(s) PFSH ED PFSH: Medical History Ascending aortic aneurysm Atherosclerotic peripheral vascular disease Atrial fibrillation Atrial fibrillation with rapid ventricular response BPH with obstruction/lower urinary tract symptoms Cataract Diabetes mellitus Erectile dysfunction Essential hypertension Hypercholesterolemia Incomplete emptying of bladder Intrathoracic aortic aneurysm Moderate aortic regurgitation Moderate tricuspid regurgitation by prior echocardiogram Surgical History S/P laminectomy S/P vasectomy Family History Other Cancer Diabetes Heart disease Stroke Social History Smoking and tobacco status: former smoker Alcohol intake: never Substance/Drug Use: unknown Adopted: No Caregiver/support person: No Lives independently: No Household members: spouse Marital status: Current occupational status: retired Physical Exam Const: COMMON NORMALS: no acute distress and healthy appearing HENMT: COMMON NORMALS: normocephalic and atraumatic HEAD & SCALP: normocephalic and atraumatic Eye: COMMON NORMALS: Equal, round and reactive pupils present and EOMs intact bilaterally PUPIL: Yes Equal, round and reactive pupils present Neck/C-Spine: COMMON NORMALS: full ROM and supple Chest: COMMONS NORMALS: normal inspection of the chest and normal palpation of entire chest wall Resp: COMMON NORMALS: normal respiratory effort, No retractions, No use of accessory muscles and clear to auscultation bilaterally AUSCULTATION: clear to auscultation bilaterally Cardio: COMMON NORMALS: regular rate, regular rhythm and No murmurs present (Cardio) RATE: regular rate RHYTHM: regular rhythm GI: COMMON NORMALS: Normal to inspection, nondistended, normoactive bowel sounds present, Soft to palpation, non-tender and no masses PALPATION: Yes Soft to palpation : OTHER: Slight amount of blood out of the Serna Back/Pelvis: OTHER: Slight L-spine tenderness Extremity: COMMON NORMALS: normal to inspection and full ROM Neuro: COMMON NORMALS: moves all extremities and no focal motor deficits Psych: COMMON NORMALS: mental status grossly normal, Normal thought process present and cooperative THOUGHT PROCESS: Normal thought process present Skin: COMMON NORMALS: no rashes or lesions noted and no wounds GENERAL SKIN EXAM: no rashes or lesions noted Course Vital Signs: Vital signs: Vital Signs Temperature 98.2 F 11/04/22 04:49 Pulse Rate 60 11/04/22 04:49 Respiratory Rate 20 H 11/04/22 04:49 Blood Pressure 110/63 11/04/22 04:49 Pulse Oximetry 90 11/04/22 04:49 Oxygen Delivery Me thod Room Air 11/04/22 04:49 MDM - Fall Medical Decision Making Patient presents here after a fall CT of his lumbar spine is normal his Serna had become dislodged and was in his urethra did deflate the balloon and placed it appropriately. He is well-appearing here he is stable for discharge back to the detention. Medical Records I reviewed the patient's medical records. Lab Data I reviewed the patient's lab results. 11/04/22 05:00 11/04/22 05:00 Radiology Impressions Abdomen/Pelvis CT 11/04/22 04:54 IMPRESSION: 1. Negative for acute abdominopelvic injury. 2. Malpositioning of Serna catheter with balloon insufflation within the prostatic urethra. Repositioning recommended. Lumbar Spine CT 11/04/22 04:58 IMPRESSION: Negative for acute lumbar spine fracture. Laboratory Results WBC 7.9 10^3/uL (4.0-10.0) 11/04/22 05:00 RBC 3.99 10^6/uL (4.1-5.3) L 11/04/22 05:00 Hgb 12.0 g/dL (11.7-16.6) 11/04/22 05:00 Hct 36.7 % (42.0-52.0) L 11/04/22 05:00 MCV 92.0 fl (80-94) 11/04/22 05:00 MCH 30.1 pg (28.0-34.0) 11/04/22 05:00 MCHC 32.7 g/dL (30.0-36.0) 11/04/22 05:00 RDW 13.0 % (12.1-15.1) 11/04/22 05:00 Plt Count 264 10^3/cmm (130-400) 11/04/22 05:00 MPV 8.7 fL (7.4-10.4) 11/04/22 05:00 Neut % (Auto) 76.5 % 11/04/22 05:00 Lymph % (Auto) 10.9 % 11/04/22 05:00 Cecil % (Auto) 9.7 % 11/04/22 05:00 Eos % (Auto) 1.0 % 11/04/22 05:00 Baso % (Auto) 0.4 % 11/04/22 05:00 Neut # (Auto) 6.05 10^3/uL (1.8-7.7) 11/04/22 05:00 Lymph # (Auto) 0.9 10^3/uL (0.8-4.8) 11/04/22 05:00 Cecil # (Auto) 0.8 10^3/uL (0.2-0.9) 11/04/22 05:00 Eos # (Auto) 0.1 10^3/uL (0.0-0.8) 11/04/22 05:00 Baso # (Auto) 0.0 10^3/uL (0.0-0.1) 11/04/22 05:00 Nucleated RBC % (auto) 0 % 11/04/22 05:00 Nucleated RBCs # 0.0 /100WBC 11/04/22 05:00 Sodium 138 mmol/L (136-145) 11/04/22 05:00 Potassium 3.9 mmol/L (3.5-5.1) 11/04/22 05:00 Chloride 104 mmol/L (98-107) 11/04/22 05:00 Carbon Dioxide 25 mmol/L (22-29) 11/04/22 05:00 Anion Gap 12.9 (5-19) 11/04/22 05:00 BUN 17 mg/dL (8-23) 11/04/22 05:00 Creatinine 0.8 mg/dL (0.7-1.2) 11/04/22 05:00 GFR Calculation Not Reportable 11/04/22 05:00 Glucose 180 mg/dL (65-115) H 11/04/22 05:00 Calculated Osmolality 292 mOsm/kg (285-295) 11/04/22 05:00 Calcium 8.2 mg/dL (8.5-10.5) L 11/04/22 05:00 Total Bilirubin 0.7 mg/dL (0.15-1.2) 11/04/22 05:00 AST 89 U/L (0-40) H 11/04/22 05:00 ALT 119 U/L (0-41) H 11/04/22 05:00 Alkaline Phosphatase 62 U/L (40-130) 11/04/22 05:00 Total Protein 6.1 g/dL (6.6-8.7) L 11/04/22 05:00 Albumin 3.1 g/dL (3.5-5.2) L 11/04/22 05:00 Globulin 3.0 g/dL (1.3-4.6) 11/04/22 05:00 Discharge Plan Discharge Patient Disposition: Home Clinical Impression: Fall, Low back pain, Displacement of Serna catheter Condition: Stable Prescriptions: No Action tamsulosin 0.4 mg capsule 0.8 mg PO DAILY Qty: 180 3RF Rx [facility]: [facility] Pradaxa 150 mg capsule 150 mg PO BID Rx Instructions: [facility] carbidopa-levodopa 25-250 mg tablet 0.5 tab PO TID cholecalciferol (vitamin D3) 50 mcg (2,000 unit) capsule 50 mcg PO DAILY Qty: 30 6RF gabapentin 300 mg capsule 300 mg PO TID PRN ondansetron HCl 4 mg tablet 4 mg PO Q8H PRN (Reason: nausea and vomiting) Qty: 60 3RF citalopram 10 mg tablet 10 mg PO DAILY finasteride 5 mg tablet 5 mg PO DAILY Rx Instructions: [facility] metformin 500 mg tablet 500 mg PO BID Pacerone 200 mg tablet 200 mg PO BID Qty: 180 2RF glipizide 5 mg tablet 5 mg PO DAILY Qty: 90 3RF multivitamin [Multiple Vitamins] Tablet 1 tab PO DAILY hydromorphone 1 mg/mL Liquid 0.25 mg PO PRN PRN (Reason: Back Pain) Rx Instructions: IVP Humalog U-100 Insulin 100 unit/mL Solution See Rx Instructions .ROUTE .COMPLEX Rx Instructions: medium correction SS Discharge Orders: Discharge ED (Routine); Ordered 11/04/22 Ordered By: Randy Chapman Referrals: Deshaun Kelley MD [Primary Care Provider] - 1-3 days Discharge Diet: Advance as tolerated Discharge Activity: Resume usual activity Patient Instructions: Fall Prevention (ED) Coding Level of Care Code ED Topographical Engineer for Fozia Dalton
--- NOTE | 2022-11-04 05:19 | XRR_ITS ---
PROCEDURE INFORMATION: Exam: XR Chest Exam date and time: 11/04/2022 5:42 AM Age: 77 years old Clinical indication: Other: AMS; Additional info: Fall TECHNIQUE: Imaging protocol: Radiologic exam of the chest. Views: 1 view. COMPARISON: CR XR chest 1V portable [id number] 11/14/2021 4:27 PM FINDINGS: Lungs: Unremarkable. No consolidation. Pleural spaces: Unremarkable. No pleural effusion. No pneumothorax. Heart/Mediastinum: Unremarkable. No cardiomegaly. Bones/joints: Unremarkable. XR/XR chest 1V portable [id number] IMPRESSION: No acute findings.
[2022-11-04 05:25] LABS: Alanine Aminotransferase 119 U/L (0-41); Albumin Level 3.1 g/dL (3.5-5.2); Alkaline Phosphatase 62 U/L (40-130); Anion Gap 12.9 (5-19); Aspartate Amino Transferase 89 U/L (0-40); Blood Urea Nitrogen 17 mg/dL (8-23); Calcium 8.2 mg/dL (8.5-10.5); Carbon Dioxide 25 mmol/L (22-29); Chloride 104 mmol/L (98-107); Creatinine Clr Calc Pharmacy 90.5191; Glucose 180 mg/dL (65-115); Osmolality Calculated 292 mOsm/kg (285-295); Potassium 3.9 mmol/L (3.5-5.1); Sodium 138 mmol/L (136-145); Total Bilirubin 0.7 mg/dL (0.15-1.2); Total Protein 6.1 g/dL (6.6-8.7)
[2022-11-04 06:00] VITALS: BP 108/64; PULSE 56; O2SAT 90
--- NOTE | 2022-11-04 06:18 | PC.NURSE ---
Pt report given to Layne Alvarez LPN at this time
[2022-11-04 06:30] VITALS: BP 110/67; PULSE 53; O2SAT 94
[2022-11-04 07:01] VITALS: BP 115/63; PULSE 52; RESP 16; O2SAT 92
== END 2022-11-04 07:53 | disposition home or self-care (01) ==
PROVIDERS: Emergency Provider Emergency Medicine; PCP Family Medicine
DX: M54.50 Low back pain, unspecified (principal); T83.028A Displacement of other urinary catheter, initial encounter; Y73.8 Miscellaneous gastroenterology and urology devices associated with adverse incidents, not elsewhere classified; Z79.84 Long term (current) use of oral hypoglycemic drugs; Z79.4 Long term (current) use of insulin; Z87.891 Personal history of nicotine dependence; E11.9 Type 2 diabetes mellitus without complications; I10 Essential (primary) hypertension
CPT/HCPCS: 71045; 72131; 74176; 80053; 85025; 99284

== ENCOUNTER 2022-11-04 08:14 | Emergency (ER) | payer OTHER, SELFPAY ==
--- NOTE | 2022-11-04 08:27 | W.ED.AMS ---
HPI - Altered Mental Status General: Chief Complaint: Altered Mental Status Stated Complaint: MHE Time Seen by Provider: 11/04/22 08:23 [facility] ED PFSH: Medical History Ascending aortic aneurysm Atherosclerotic peripheral vascular disease Atrial fibrillation Atrial fibrillation with rapid ventricular response BPH with obstruction/lower urinary tract symptoms Cataract Diabetes mellitus Erectile dysfunction Essential hypertension Hypercholesterolemia Incomplete emptying of bladder Intrathoracic aortic aneurysm Moderate aortic regurgitation Moderate tricuspid regurgitation by prior echocardiogram Surgical History S/P laminectomy S/P vasectomy Family History Other Cancer Diabetes Heart disease Stroke Social History Smoking and tobacco status: former smoker Alcohol intake: never Substance/Drug Use: unknown Adopted: No Caregiver/support person: No Lives independently: No Household members: spouse Marital status: Current occupational status: retired Discharge Plan Discharge Condition: Stable Prescriptions: No Action tamsulosin 0.4 mg capsule 0.8 mg PO DAILY Qty: 180 3RF Rx Instructions: [facility] Pradaxa 150 mg capsule 150 mg PO BID Rx Instructions: waiting for [facility] carbidopa-levodopa 25-250 mg tablet 0.5 tab PO TID cholecalciferol (vitamin D3) 50 mcg (2,000 unit) capsule 50 mcg PO DAILY Qty: 30 6RF gabapentin 300 mg capsule 300 mg PO TID PRN ondansetron HCl 4 mg tablet 4 mg PO Q8H PRN (Reason: nausea and vomiting) Qty: 60 3RF citalopram 10 mg tablet 10 mg PO DAILY finasteride 5 mg tablet 5 mg PO DAILY Rx Instructions: [facility] for [facility] metformin 500 mg tablet 500 mg PO BID Pacerone 200 mg tablet 200 mg PO BID Qty: 180 2RF glipizide 5 mg tablet 5 mg PO DAILY Qty: 90 3RF multivitamin [Multiple Vitamins] Tablet 1 tab PO DAILY hydromorphone 1 mg/mL Liquid 0.25 mg PO PRN PRN (Reason: Back Pain) Rx Instructions: IVP Humalog U-100 Insulin 100 unit/mL Solution See Rx Instructions .ROUTE .COMPLEX Rx Instructions: medium correction SS Referrals: Deshaun Kelley MD [Primary Care Provider] - Patient Instructions: Altered Mental Status (ED), Alcohol Intoxication (ED), Benzodiazepine Use Disorder (ED), Concussion (ED), Dementia (ED), Subarachnoid Hemorrhage (GEN), Hyponatremia (ED), Non-diabetic Hypoglycemia (ED), Hypoglycemia in a Person with Diabetes (ED) Coding Level of Care Code ED Cement Mason Maintenance for Fozia Dalton
--- NOTE | 2022-11-04 08:40 | PC.PHAR ---
Addendum entered by Yessi Montoya 11/04/22 11:10: STILL HAVE NOT RECIEVED [facility] FROM [facility] OF 11:11 AM Addendum entered by Yessi Montoya 11/04/22 09:58: CONTACTED [facility] AT [facility] AGAIN FOR MED LIST AT 9:45 AM Original Note: [facility] CALLED FOR [facility] AT 8:40 AM TO BE FAXED
[2022-11-04] MEDS: amiodarone 200 mg Tablet PO ×2 (08:43→17:43)
[2022-11-04] MEDS: carbidopa-levodopa 25-100mg Tablet 0.5 EACH PO ×2 (08:43→17:44)
[2022-11-04 08:44] LABS: Blood Urine 3+ (Negative); Glucose Urine UA Norm (Normal); Ketones Urine 1+ (Negative); Protein Urine 2+ (Negative); Urine Appearance Cloudy (CLEAR); Urine Color Red (Yellow); pH Urine 7 (5-7)
[2022-11-04 08:45] LABS: Add Urine Microscopic? YES; Bilirubin Urine 1+ (Negative); Leukocyte Esterase Urine 1+ (Negative); Nitrate Urine Negative (Negative); Urobilinogen Urine 8 mg/dL (Negative)
[2022-11-04 08:47] LABS: RBC Urine >100 /hpf (0-2)
[2022-11-04 08:48] LABS: Add Urine Culture? Yes; Bacteria Urine TRACE /hpf; Mucus Urine TRACE /hpf; Squamous Epithelial Cell Urine 0-4 /hpf (0-5)
--- NOTE | 2022-11-04 08:48 | PC.NURSE ---
NURSE CALLED KARLEY (PATIENT'S ) AND ASKED IF [facility] CALLED HER IN THE MIDDLE OF THE NIGHT. KARLEY STATES [facility] CALLED HER AND SAID PATIENT WAS SENT TO ER BUT WE ARE HOLDING HIS ROOM FOR HIM. NURSE ASKED KARLEY IF [facility] MENTIONED ANYTHING ABOUT THE PATIENT BEING DISCHARGED FROM THE [facility] AND KARLEY STATED NO. KARLEY REPORTED I CAN'T TAKE CARE OF HIM HERE AT HOME THATS WHY HE IS IN THE [facility].
--- NOTE | 2022-11-04 09:40 | W.ED.GENADLT ---
Documented by User: Koko Mcgill DO 11/05/22 15:10 HPI - General Adult General: Chief complaint: Altered Mental Status Stated complaint: MHE Time Seen by Provider: 11/04/22 08:23 Mode of arrival: EMS History of Present Illness: 77-year-old male who is brought to the emergency room last evening after a fall. He was seen by Dr. Chapman as he has recently had a back surgery as a history of Parkinson's and is currently on pain medications he was discharged back from [facility] to [facility] [place] [facility] yesterday. A few hours after he arrived there he had fallen he was sent here Dr. Chapman seen the patient CT of his lumbar spine neurosurgery was done there is no abnormality laboratory tests are unremarkable his Serna was found to be dislodged it was repositioned and he did have some bloody output from traumatic irritation. He was discharged back to the [place] [facility] by Dr. Chapman. He had to wait in the emergency room for several hours for an ambulance to return to the [place]. Ambulance brought [facility] back [place] the [facility] on arrival there they were told they would not accept the patient that they were requiring a mental health evaluation. While here he had been somewhat confused but was not aggressive. Talk to his attending Dr. Kelley he states that he had seen the patient prior to surgery and he seemed to be okay. Patient has a history of Parkinson's he is currently receiving Dilaudid. Talked to a nurse at the [facility] she was told that she was instructed by her supervisors not to accept the patient until he had a mental health evaluation. I talked to recruiter account manager who refused to take him back saying that he had been discharged. We contacted the family and I talked to the daughter. They were not aware that he had been discharged have been given no notification or paperwork stating that he had been discharged they were quite surprised. When patient returned here and reviewed the previous chart a UA had not been done so urine was run shows fair amount of blood is to be expected given the history. He is otherwise somewhat confused but not been combative. The daughter told me that for some time he has had some confusion late in the day and at night, but usually he does quite well in the morning. They had also noticed this same issue in the immediate postop period that he was increasingly confused to a greater degree than he had been at home that he was better during the day and a little more difficult to deal with at night. Associated symptoms: Deny chest pain or dyspnea Review of Systems Const: Denies: fever(s) or chills Card: Denies: chest pain Resp: Denies: dyspnea GI: Denies: abdominal pain Musc: Reports: back pain PFSH ED PFSH: Medical History Ascending aortic aneurysm Atherosclerotic peripheral vascular disease Atrial fibrillation Atrial fibrillation with rapid ventricular response BPH with obstruction/lower urinary tract symptoms Cataract Diabetes mellitus Erectile dysfunction Essential hypertension Hypercholesterolemia Incomplete emptying of bladder Intrathoracic aortic aneurysm Moderate aortic regurgitation Moderate tricuspid regurgitation by prior echocardiogram Surgical History S/P laminectomy S/P vasectomy Family History Other Cancer Diabetes Heart disease Stroke Social History Smoking and tobacco status: former smoker Alcohol intake: never Substance/Drug Use: unknown Adopted: No Caregiver/support person: No Lives independently: No Household members: spouse Marital status: Current occupational status: retired Physical Exam Const: GENERAL APPEARANCE: cooperative and comfortable HENMT: COMMON NORMALS: normocephalic, atraumatic and hearing grossly normal bilaterally HEAD & SCALP: normocephalic and atraumatic Resp: COMMON NORMALS: normal respiratory effort, No retractions, No use of accessory muscles and clear to auscultation bilaterally AUSCULTATION: clear to auscultation bilaterally Cardio: COMMON NORMALS: regular rate, regular rhythm and No murmurs present (Cardio) RATE: regular rate RHYTHM: regular rhythm GI: COMMON NORMALS: Soft to palpation and No hepatosplenomegaly present AUSCULTATION: Yes normoactive bowel sounds PALPATION: Yes Soft to palpation, No Tenderness to palpation present (GI), No Guarding due to palpation present (GI) and Yes No hepatosplenomegaly present Extremity: COMMON NORMALS: normal to inspection, capillary refill normal, no clubbing, cyanosis or edema, no calf tenderness and no pedal edema Skin: COMMON NORMALS: no rashes or lesions noted GENERAL SKIN EXAM: no rashes or lesions noted Course Vital Signs: Vital signs: Vital Signs Temperature 98.4 F 11/04/22 17:32 Pulse Rate 57 L 11/04/22 17:32 Respiratory Rate 18 11/04/22 17:32 Blood Pressure 127/81 11/04/22 17:32 Pulse Oximetry 98 11/04/22 17:32 Oxygen Delivery Me thod Room Air 11/04/22 17:32 MDM - General Adult Medical Decision Making After talking the [facility] they are now stating that he was threatening to shoot people that he was calling around to get multiple falls. There is stating this was not how he was portrayed when they excepted him from [facility]. When I talk to the family they were completely unaware that the patient been discharged [facility] was not able to give me any details about the timing or when the family was notified. The nurse that I talked his head there is said that there is an software administrator on the way to work and that will clarify all this and complete the appropriate paperwork. We have notified administration here and the family that they are refusing to take the patient back at this point there is no medical indication for admission to the hospital. 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 There is no evidence of infection at this time I believe his urine results are all due to the trauma from the catheter. Reviewed the patient's chart his white count is normal CMP does not show any significant abnormalities CT of his chest and abdomen are unremarkable he does have blood in his urine which is related above believe is due to trauma from his catheter. There was a concern for head injury he is on anticoagulants CT of his head was negative for acute injury.. 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 His confusion is not surprising. He has been fine here he has been at our facility now for nearly 18 hours minus a brief attempt to return him to the [place]. At this point I think he is safe to be return to the [facility] I would recommend that they de-escalate his narcotics continue his other medications and add low-dose trazodone and Seroquel for at night. We did attempt to get medical records from [facility] would asked the daughter to come by and sign for his old records. She related that she wanted him to go back to [facility] and that [facility] said that they were now not refusing to take him that they wanted him evaluated here and treated. We called the software administrator back attempted to discuss with her that he has been fully evaluated and what my thoughts are. We offered to call Dr. Ken who is covering for Dr. Tripp. She stated that that would not matter, Dr. Ken has not seen him and she would not be satisfied with what we had told her that they would still send him back repeatedly until he was admitted. Discussed with her on-call psychiatrist. He agrees with our assessment in the emergency room that given the patient's underlying Parkinson's major surgery and the medications he has been receiving for pain these are likely exacerbated things. He recommends scaling back on the narcotics and adding low-dose medicine such as Seroquel or trazodone at at bedtime to help with sundowning. He also notes that it may be sometime before the patient returns to his baseline or may return to a new baseline after large stressors such as the surgery. Reviewed and discussed the patient with Dr. Lee. He is covering for Dr. Tripp who is the patient's attending at the [facility] and also is the medical claims representative at the [facility]. He concurs with our assessments. He called and discussed with the software administrator at the [facility]. Shortly after this he called us back and stated that they would be willing now to accept the patient on transfer. We will transfer back on Seroquel and trazodone scheduled and as needed Haldol. We were at change of shift at the time he received his call Dr. Chapman will complete the discharge sequence as well as the prescriptions. Patient presents here with delirium patient is excepted back to the [facility] will transfer there. Lab Data I reviewed the patient's lab results. Radiology Impressions Chest X-Ray 11/04/22 13:12 IMPRESSION: Minor linear atelectatic changes are seen in the lung bases. Laboratory Results POC Glucose 153 mg/dL (70-110) H 11/04/22 17:46 Urine Color Red (Yellow) 11/04/22 08:23 Urine Appearance Cloudy (CLEAR) A 11/04/22 08:23 Urine pH 7 (5-7) 11/04/22 08:23 Ur Specific [place] 1.010 (1.005-1.030) 11/04/22 08:23 Urine Protein 2+ (Negative) H 11/04/22 08:23 Urine Glucose (UA) Norm (Normal) 11/04/22 08:23 Urine Ketones 1+ (Negative) H 11/04/22 08:23 Urine Blood 3+ (Negative) H 11/04/22 08:23 Urine Nitrate Negative (Negative) 11/04/22 08:23 Urine Bilirubin 1+ (Negative) H 11/04/22 08:23 Urine Urobilinogen 8 mg/dL (Negative) H 11/04/22 08:23 Ur Leukocyte Esterase 1+ (Negative) H 11/04/22 08:23 Urine RBC >100 /hpf (0-2) H 11/04/22 08:23 Urine WBC 10-15 /hpf (0-5) H 11/04/22 08:23 Ur Squamous Epith Cells 0-4 /hpf (0-5) H 11/04/22 08:23 Amorphous Sediment Not Reportable 11/04/22 08:23 Urine Bacteria Trace /hpf (NONE) 11/04/22 08:23 Urine Mucus Trace /hpf 11/04/22 08:23 Discharge Plan Discharge Patient Disposition: Home Clinical Impression: Delirium Condition: Stable Prescriptions: New Seroquel 25 mg tablet 25 mg PO .qhs Qty: 30 0RF trazodone 50 mg tablet 25 mg PO .qhs Qty: 30 0RF haloperidol 2 mg tablet 2 mg PO Q8H PRN (Reason: agitation) Qty: 30 0RF No Action tamsulosin 0.4 mg capsule 0.8 mg PO DAILY Qty: 180 3RF Rx Instructions: [facility] Pradaxa 150 mg capsule 150 mg PO BID Rx Instructions: [facility] carbidopa-levodopa 25-250 mg tablet 0.5 tab PO TID gabapentin 300 mg capsule 300 mg PO TID citalopram 10 mg tablet 10 mg PO DAILY metformin 500 mg tablet 500 mg PO BID Pacerone 200 mg tablet 200 mg PO BID Qty: 180 2RF insulin lispro [Humalog U-100 Insulin] 100 unit/mL Solution See Rx Instructions .ROUTE .COMPLEX Rx Instructions: medium correction SS methocarbamol 500 mg tablet 500 mg PO TID PRN (Reason: Muscle Spasm) acetaminophen 325 mg Tablet 650 mg PO Q6H PRN (Reason: Pain) Percocet 5-325 mg Tablet 1 tab PO QID PRN (Reason: Pain) Milk of Magnesia 400 mg/5 mL Suspension 30 ml PO Q3D PRN (Reason: Constipation) Dulcolax (bisacodyl) 10 mg Suppository 10 mg WI DAILY PRN (Reason: Constipation) Fleet Enema 19-7 gram/118 mL Enema 118 ml WI DAILY PRN (Reason: Constipation) Colace 100 mg Capsule 100 mg PO BID lisinopril 5 mg Tablet 5 mg PO DAILY finasteride 5 mg Tablet 5 mg PO QPM rosuvastatin 10 mg Tablet 10 mg PO DAILY Lantus Solostar U-100 Insulin 100 unit/mL (3 mL) Insulin Pen 20 unit SUBCUT QAM Discharge Orders: Discharge ED (Routine); Ordered 11/04/22 Ordered By: Randy Chapman Referrals: Deshaun Kelley MD [Primary Care Provider] - Discharge Diet: Advance as tolerated Discharge Activity: Resume usual activity Patient Instructions: Dementia (ED), Acute Delirium (ED), Altered Mental Status (ED) Coding Level of Care Code ED Turret Press Operator for Chg Fwd Documented by User: Randy Chapman MD 11/04/22 18:46 HPI - General Adult General: Chief complaint: Altered Mental Status Stated complaint: MHE Time Seen by Provider: 11/04/22 08:23 PFSH ED PFSH: Medical History Ascending aortic aneurysm Atherosclerotic peripheral vascular disease Atrial fibrillation Atrial fibrillation with rapid ventricular response BPH with obstruction/lower urinary tract symptoms Cataract Diabetes mellitus Erectile dysfunction Essential hypertension Hypercholesterolemia Incomplete emptying of bladder Intrathoracic aortic aneurysm Moderate aortic regurgitation Moderate tricuspid regurgitation by prior echocardiogram Surgical History S/P laminectomy S/P vasectomy Family History Other Cancer Diabetes Heart disease Stroke Social History Smoking and tobacco status: former smoker Alcohol intake: never Substance/Drug Use: unknown Adopted: No Caregiver/support person: No Lives independently: No Household members: spouse Marital status: Current occupational status: retired Course Vital Signs: Vital signs: Vital Signs Temperature 98.4 F 11/04/22 17:32 Pulse Rate 57 L 11/04/22 17:32 Respiratory Rate 18 11/04/22 17:32 Blood Pressure 127/81 11/04/22 17:32 Pulse Oximetry 98 11/04/22 17:32 Oxygen Delivery Me thod Room Air 11/04/22 17:32 MDM - General Adult Medical Decision Making After talking the [facility] they are now stating that he was threatening to shoot people that he was calling around to get multiple falls. There is stating this was not how he was portrayed when they excepted him from [facility]. When I talk to the family they were completely unaware that the patient been discharged to [facility] was not able to give me any details about the timing or when the family was notified. The nurse that I talked his head there is said that there is an software administrator on the way to work and that will clarify all this and complete the appropriate paperwork. We have notified administration here and the family that they are refusing to take the patient back at this point there is no medical indication for admission to the hospital. 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 There is no evidence of infection at this time I believe his urine results are all due to the trauma from the catheter. Reviewed the patient's chart his white count is normal CMP does not show any significant abnormalities CT of his chest and abdomen are unremarkable he does have blood in his urine which is related above believe is due to trauma from his catheter. There was a concern for head injury he is on anticoagulants CT of his head was negative for acute injury.. 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 His confusion is not surprising. He has been fine here he has been at our facility now for nearly 18 hours minus a brief attempt to return him to the [facility]. At this point I think he is safe to be return to the [facility] I would recommend that they de-escalate his narcotics continue his other medications and add low-dose trazodone and Seroquel for sundowning at night. We did attempt to get medical records from [facility] would asked the daughter to come by and sign for his old records. She related that she wanted him to go back to [facility] and that [facility] said that they were now not refusing to take him that they wanted him evaluated here and treated. We called the software administrator back attempted to discuss with her that he has been fully evaluated and what my thoughts are. We offered to call Dr. Ken who is covering for Dr. Tripp. She stated that that would not matter, Dr. Ken has not seen him and she would not be satisfied with what we had told her that they would still send him back repeatedly until he was admitted. Discussed with her on-call psychiatrist. He agrees with our assessment in the emergency room that given the patient's underlying Parkinson's major surgery and the medications he has been receiving for pain these are likely exacerbated things. He recommends scaling back on the narcotics and adding low-dose medicine such as Seroquel or trazodone at at bedtime to help with sundowning. He also notes that it may be sometime before the patient returns to his baseline or may return to a new baseline after large stressors such as the surgery. Patient presents here with delirium patient is excepted back to the [facility] will transfer there. Lab Data Radiology Impressions Chest X-Ray 11/04/22 13:12 IMPRESSION: Minor linear atelectatic changes are seen in the lung bases. Laboratory Results POC Glucose 153 mg/dL (70-110) H 11/04/22 17:46 Urine Color Red (Yellow) 11/04/22 08:23 Urine Appearance Cloudy (CLEAR) A 11/04/22 08:23 Urine pH 7 (5-7) 11/04/22 08:23 Ur Specific [place] 1.010 (1.005-1.030) 11/04/22 08:23 Urine Protein 2+ (Negative) H 11/04/22 08:23 Urine Glucose (UA) Norm (Normal) 11/04/22 08:23 Urine Ketones 1+ (Negative) H 11/04/22 08:23 Urine Blood 3+ (Negative) H 11/04/22 08:23 Urine Nitrate Negative (Negative) 11/04/22 08:23 Urine Bilirubin 1+ (Negative) H 11/04/22 08:23 Urine Urobilinogen 8 mg/dL (Negative) H 11/04/22 08:23 Ur Leukocyte Esterase 1+ (Negative) H 11/04/22 08:23 Urine RBC >100 /hpf (0-2) H 11/04/22 08:23 Urine WBC 10-15 /hpf (0-5) H 11/04/22 08:23 Ur Squamous Epith Cells 0-4 /hpf (0-5) H 11/04/22 08:23 Amorphous Sediment Not Reportable 11/04/22 08:23 Urine Bacteria Trace /hpf (NONE) 11/04/22 08:23 Urine Mucus Trace /hpf 11/04/22 08:23 Discharge Plan Discharge Patient Disposition: Home Clinical Impression: Delirium Condition: Stable Prescriptions: New Seroquel 25 mg tablet 25 mg PO .qhs Qty: 30 0RF trazodone 50 mg tablet 25 mg PO .qhs Qty: 30 0RF haloperidol 2 mg tablet 2 mg PO Q8H PRN (Reason: agitation) Qty: 30 0RF No Action tamsulosin 0.4 mg capsule 0.8 mg PO DAILY Qty: 180 3RF Rx Inst[facility]: [facility] Pradaxa 150 mg capsule 150 mg PO BID Rx Instructions: [facility] carbidopa-levodopa 25-250 mg tablet 0.5 tab PO TID gabapentin 300 mg capsule 300 mg PO TID citalopram 10 mg tablet 10 mg PO DAILY metformin 500 mg tablet 500 mg PO BID Pacerone 200 mg tablet 200 mg PO BID Qty: 180 2RF insulin lispro [Humalog U-100 Insulin] 100 unit/mL Solution See Rx Instructions .ROUTE .COMPLEX Rx Instructions: medium correction SS methocarbamol 500 mg tablet 500 mg PO TID PRN (Reason: Muscle Spasm) acetaminophen 325 mg Tablet 650 mg PO Q6H PRN (Reason: Pain) Percocet 5-325 mg Tablet 1 tab PO QID PRN (Reason: Pain) Milk of Magnesia 400 mg/5 mL Suspension 30 ml PO Q3D PRN (Reason: Constipation) Dulcolax (bisacodyl) 10 mg Suppository 10 mg WI DAILY PRN (Reason: Constipation) Fleet Enema 19-7 gram/118 mL Enema 118 ml WI DAILY PRN (Reason: Constipation) Colace 100 mg Capsule 100 mg PO BID lisinopril 5 mg Tablet 5 mg PO DAILY finasteride 5 mg Tablet 5 mg PO QPM rosuvastatin 10 mg Tablet 10 mg PO DAILY Lantus Solostar U-100 Insulin 100 unit/mL (3 mL) Insulin Pen 20 unit SUBCUT QAM Discharge Orders: Discharge ED (Routine); Ordered 11/04/22 Ordered By: Randy Chapman Referrals: Deshaun Kelley MD [Primary Care Provider] - Discharge Diet: Advance as tolerated Discharge Activity: Resume usual activity Patient Instructions: Dementia (ED), Acute Delirium (ED), Altered Mental Status (ED) Coding Level of Care Code ED Turret Press Operator for Fozia Dalton
[2022-11-04 12:08] LABS: Glucose Point of Care 151 mg/dL (70-110)
--- NOTE | 2022-11-04 12:33 | PC.NURSE ---
PT GIVEN FOOD TRAY. PATIENT ADJUST IN BED AND SITTING UP TO EAT. PATIENT HAD NO FURTHER NEEDS AT THIS TIME.
--- NOTE | 2022-11-04 12:45 | PC.NURSE ---
pt sitting up in bed eating lunch at this time. no needs identified.
[2022-11-04 13:10] VITALS: BP 133/73; PULSE 59; RESP 18; O2SAT 94
--- NOTE | 2022-11-04 13:12 | XRR_ITS ---
PROCEDURE INFORMATION: Exam: XR Chest Exam date and time: 11/04/2022 1:21 PM Age: 77 years old Clinical indication: Cough and dyspnea; Additional info: Dyspnea/cough TECHNIQUE: Imaging protocol: Radiologic exam of the chest. Views: 1 view. COMPARISON: CR (CHEST, ) 11/04/2022 5:42 AM FINDINGS: Lungs: Minor linear atelectatic changes are seen in the lung bases. Pleural spaces: Unremarkable. No pleural effusion. No pneumothorax. Heart/Mediastinum: Unremarkable. No cardiomegaly. Diaphragm: There is mild elevation of the right hemidiaphragm. Bones/joints: Unremarkable. XR/XR chest 1V portable [id number] IMPRESSION: Minor linear atelectatic changes are seen in the lung bases.
--- NOTE | 2022-11-04 14:38 | DCPLANNER ---
Addendum entered by Radha Gomes 11/05/22 07:43: inclusion manager called [facility] and left a message for Wilma that patient no longer needs placement. Addendum entered by Radha Gomes 11/04/22 16:30: inclusion manager was asked to fax patients information to [facility] for review. inclusion manager called and spoke with Wilma at [facility], sent records for review. Original Note: inclusion manager called patients daughter, Yessi, and had her sign a medical release paperwork to send to [facility] to get patients hospital stay records. Patients daughter stated that if another halfway facility was needed that her second choice would be [facility].
--- NOTE | 2022-11-04 16:10 | PC.NURSE ---
qureshi irrigated with 300ml sterile water. only two small clots recovered. urine is slightly blood tinged.
[2022-11-04 17:32] VITALS: BP 127/81; PULSE 57; RESP 18; TEMP 36.9; O2SAT 98
[2022-11-04] MEDS: metformin 500 mg Tablet PO (17:44)
[2022-11-04 17:50] LABS: Glucose Point of Care 153 mg/dL (70-110)
[2022-11-04 17:50] LABS: Glucose Point of Care 170 mg/dL (70-110)
[2022-11-04] MEDS: insulin lispro 100 unit/1 mL SUBCUT (18:01)
--- NOTE | 2022-11-04 18:27 | PC.NURSE ---
[facility]. all questions/concerns addressed at this time.
== END 2022-11-04 18:41 | disposition home or self-care (01) ==
PROVIDERS: Family Medicine; Emergency Provider Emergency Medicine; PCP Family Medicine
DX: R41.0 Disorientation, unspecified (principal); Z79.84 Long term (current) use of oral hypoglycemic drugs; Z79.4 Long term (current) use of insulin; Z87.891 Personal history of nicotine dependence; E11.9 Type 2 diabetes mellitus without complications; I10 Essential (primary) hypertension
CPT/HCPCS: 36416; 71045; 81001; 82962; 87086; 96372; 99285; J1815

== ENCOUNTER 2022-11-21 15:06 | Emergency (ER) | payer OTHER, SELFPAY ==
--- NOTE | 2022-11-21 15:08 | ED_ITS ---
HPI - Altered Mental Status General: Chief Complaint: Altered Mental Status Stated Complaint: confusion Time Seen by Provider: 11/21/22 15:07 Limitations: altered mental status History of Present Illness: Mr. Nguyen is a 77-year-old gentleman with complex past medical history including back pain, diabetes, atrial fibrillation, indwelling catheter presenti ng to the emergency department for evaluation of mental status change he reports feeling worse for some period of time. He comes from [facility]. The patient is a vague historian as far specifics. History otherwise limited by patient factors. No other specific changes in health, exacerbating, or alleviating factors identified. Onset (ago): week(s) Review of Systems General: Reports: 10 or more systems reviewed and unremarkable except in HPI and below PFSH ED PFSH: Medical History Ascending aortic aneurysm Atherosclerotic peripheral vascular disease Atrial fibrillation Atrial fibrillation with rapid ventricular response BPH with obstruction/lower urinary tract symptoms Cataract Diabetes mellitus Erectile dysfunction Essential hypertension Hypercholesterolemia Incomplete emptying of bladder Intrathoracic aortic aneurysm Moderate aortic regurgitation Moderate tricuspid regurgitation by prior echocardiogram Surgical History S/P laminectomy S/P vasectomy Family History Other Cancer Diabetes Heart disease Stroke Social History Smoking and tobacco status: former smoker Alcohol intake: never Substance/Drug Use: unknown Adopted: No Caregiver/support person: No Lives independently: No Household members: spouse Marital status: Current occupational status: retired Physical Exam Const: COMMON NORMALS: alert GENERAL APPEARANCE: cooperative and well developed HENMT: COMMON NORMALS: normocephalic and atraumatic HEAD & SCALP: normocephalic and atraumatic Eye: COMMON NORMALS: conjunctivae normal CONJUNCTIVA: Yes conjunctivae normal SCLERA: sclerae normal Neck/C-Spine: COMMON NORMALS: supple GENERAL: Yes trachea midline Resp: COMMON NORMALS: normal respiratory effort EFFORT & INSPECTION: Yes able to speak in complete sentences Cardio: COMMON NORMALS: regular rate and regular rhythm RATE: regular rate RHYTHM: regular rhythm GI: COMMON NORMALS: Soft to palpation PALPATION: Yes Soft to palpation and No Tenderness to palpation present (GI) PERCUSSION: normal to percussion Extremity: GENERAL: Yes normal exam except as noted and No edema Neuro: COMMON NORMALS: moves all extremities SENSORIUM/ORIENTATION: Yes alert and No Orientation impaired Psych: COMMON NORMALS: mental status grossly normal and Normal thought process present THOUGHT PROCESS: Normal thought process present Course Vital Signs: Vital signs: Vital Signs Temperature 98.6 F 11/21/22 15:13 Pulse Rate 59 L 11/21/22 19:48 Respiratory Rate 16 11/21/22 18:00 Blood Pressure 128/68 11/21/22 19:48 Pulse Oximetry 93 11/21/22 19:48 Oxygen Delivery Me thod Room Air 11/21/22 19:48 Oxygen Flow Rate 2 11/21/22 18:00 MDM - Altered Mental Status Medical Decision Making 77-year-old gentleman presenting with possible mental status change. He is on antibiotics and pulled out multiple lines limiting administration. He is nontox ic and there are no focal deficits. No meningismus. Vitals are satisfactory without evidence of sepsis. Labs with no significant hematologic or metabolic abnormality requiring hospitalization/intervention. Negative range your delta troponin. Procalcitonin negative. Viral panel negative. Chest x-ray with no lobar consolidation or pneumothorax. PICC line placed. Satisfactory for continued [facility] management now that he has access again. The results of ED evaluation were discussed with the patient including prescriptions and/or symptomatic cares (if applicable) including appropriate and responsible use, followup plan, and return precautions. The patient verbalized understanding and felt safe for discharge. Medical Records I reviewed the patient's medical records. Lab Data I reviewed the patient's lab results. 11/21/22 16:06 11/21/22 16:06 Radiology Impressions Chest X-Ray 11/21/22 19:34 IMPRESSION: Right PICC line in proper positioning. Laboratory Results WBC 9.3 10^3/uL (4.0-10.0) 11/21/22 16:06 RBC 4.23 10^6/uL (4.1-5.3) 11/21/22 16:06 Hgb 12.8 g/dL (11.7-16.6) 11/21/22 16:06 Hct 40.0 % (42.0-52.0) L 11/21/22 16:06 MCV 94.6 fl (80-94) H 11/21/22 16:06 MCH 30.3 pg (28.0-34.0) 11/21/22 16:06 MCHC 32.0 g/dL (30.0-36.0) 11/21/22 16:06 RDW 13.4 % (12.1-15.1) 11/21/22 16:06 Plt Count 256 10^3/cmm (130-400) 11/21/22 16:06 MPV 8.9 fL (7.4-10.4) 11/21/22 16:06 Neut % (Auto) 66.8 % 11/21/22 16:06 Lymph % (Auto) 19.2 % 11/21/22 16:06 [place] % (Auto) 10.3 % 11/21/22 16:06 Eos % (Auto) 2.4 % 11/21/22 16:06 Baso % (Auto) 0.5 % 11/21/22 16:06 Neut # (Auto) 6.20 10^3/uL (1.8-7.7) 11/21/22 16:06 Lymph # (Auto) 1.8 10^3/uL (0.8-4.8) 11/21/22 16:06 [place] # (Auto) 1.0 10^3/uL (0.2-0.9) H 11/21/22 16:06 Eos # (Auto) 0.2 10^3/uL (0.0-0.8) 11/21/22 16:06 Baso # (Auto) 0.1 10^3/uL (0.0-0.1) 11/21/22 16:06 Nucleated RBC % (auto) 0 % 11/21/22 16:06 Nucleated RBCs # 0.0 /100WBC 11/21/22 16:06 ESR 16 mm/hr (0-10) H 11/21/22 16:06 Sodium 134 mmol/L (136-145) L 11/21/22 16:06 Potassium 4.6 mmol/L (3.5-5.1) 11/21/22 16:06 Chloride 97 mmol/L (98-107) L 11/21/22 16:06 Carbon Dioxide 27 mmol/L (22-29) 11/21/22 16:06 Anion Gap 14.6 (5-19) 11/21/22 16:06 BUN 14 mg/dL (8-23) 11/21/22 16:06 Creatinine 0.8 mg/dL (0.7-1.2) 11/21/22 16:06 GFR Calculation Not Reportable 11/21/22 16:06 Glucose 170 mg/dL (65-115) H 11/21/22 16:06 POC Glucose 170 mg/dL (70-110) H 11/21/22 16:17 Calculated Osmolality 282 mOsm/kg (285-295) L 11/21/22 16:06 Lactic Acid 1.3 mmol/L (0.5-2.2) 11/21/22 16:06 Calcium 8.3 mg/dL (8.5-10.5) L 11/21/22 16:06 Total Bilirubin 0.6 mg/dL (0.15-1.2) 11/21/22 16:06 AST 48 U/L (0-40) H 11/21/22 16:06 ALT 44 U/L (0-41) H 11/21/22 16:06 Alkaline Phosphatase 99 U/L (40-130) 11/21/22 16:06 Troponin T Baseline 33 ng/L (0-15) H 11/21/22 16:06 Troponin T 120 Minute 33.89 ng/L (0-15) H 11/21/22 17:37 Delta Troponin T 0.89 ABS# (0-10) 11/21/22 17:37 C-Reactive Protein 151.7 mg/L (0.0-4.9) H 11/21/22 16:06 NT-Pro-B Natriuret Pep 110 pg/mL (0-450) 11/21/22 16:06 Total Protein 6.7 g/dL (6.6-8.7) 11/21/22 16:06 Albumin 3.4 g/dL (3.5-5.2) L 11/21/22 16:06 Globulin 3.3 g/dL (1.3-4.6) 11/21/22 16:06 Procalcitonin 0.12 ng/mL (0-0.5) 11/21/22 16:06 Nasal Influ A H1 2008 PCR Not detected (NOT DETECT) 11/21/22 19:39 Adenovirus (PCR) Not detected (NOT DETECT) 11/21/22 19:39 C. pneumoniae DNA (PCR) Not detected (NOT DETECT) 11/21/22 19:39 Coronavirus 229E (PCR) Not detected (NOT DETECT) 11/21/22 19:39 Human Metapneumovir PCR Not detected (NOT DETECT) 11/21/22 19:39 Influenza A (H1) PCR Not detected (NOT DETECT) 11/21/22 19:39 Influenza A (H3) PCR Not detected (NOT DETECT) 11/21/22 19:39 Influenza Type A (PCR) Not detected (NOT DETECT) 11/21/22 19:39 Influenza Type B (PCR) Not detected (NOT DETECT) 11/21/22 19:39 M. pneumoniae (PCR) Not detected (NOT DETECT) 11/21/22 19:39 Parainfluenza 1 (PCR) Not detected (NOT DETECT) 11/21/22 19:39 Parainfluenza 2 (PCR) Not detected (NOT DETECT) 11/21/22 19:39 Parainfluenza 3 (PCR) Not detected (NOT DETECT) 11/21/22 19:39 Parainfluenza 4 (PCR) Not detected (NOT DETECT) 11/21/22 19:39 RSV Type A (PCR) Not detected (NOT DETECT) 11/21/22 19:39 RSV Type B (PCR) Not detected (NOT DETECT) 11/21/22 19:39 Entero/Rhino (PCR) Not detected (NOT DETECT) 11/21/22 19:39 SARS-CoV-2 (PCR) Not detected (NOT DETECT) 11/21/22 19:39 Discharge Plan Discharge Patient Disposition: [facility] Clinical Impression: Altered mental status, Needs peripherally inserted central catheter (PICC), At risk for polypharmacy Condition: Stable Discharge Orders: Discharge ED (Routine); Ordered 11/21/22 Ordered By: Mathieu Tran Referrals: Deshaun Kelley MD [Primary Care Provider] - Discharge Diet: As Directed Discharge Activity: Limit activity as instructed Patient Instructions: Dementia (ED), Altered Mental Status (ED), PICC (Peripherally Inserted Central Catheter) (DC) Activity Restrictions/Additional Instructions: Thank you for visiting the emergency department. You were seen and evaluated for mental status change. The exact cause of your symptoms is unclear though likely exacerbation of underlying medical problems. A PICC line was reinserted in order to ensure that you can still receive your previously planned antibiot ics. Please have primary care evaluation within the next 3 days. Please continue all previously given instructions and medications. I do recommend review of medications as the patient is at risk for polypharmacy and associated cognitive effects. Return as needed for anything that you feel needs emergency department care. Coding Level of Care Code ED Delivery Consultant for Fozia Dalton
[2022-11-21 15:13] VITALS: BP 111/68; PULSE 64; RESP 18; TEMP 37; O2SAT 90
--- NOTE | 2022-11-21 15:33 | XRR_ITS ---
PROCEDURE INFORMATION: Exam: XR Chest Exam date and time: 11/21/2022 3:48 PM Age: 77 years old Clinical indication: Other: AMS TECHNIQUE: Imaging protocol: Radiologic exam of the chest. Views: 1 view. COMPARISON: CR XR chest 1V portable [id number] 11/04/2022 1:21 PM FINDINGS: Lungs: Basilar linear opacities are again seen likely reflecting atelectasis. There is limited inspiration and mild elevation of the right hemidiaphragm. Pleural spaces: Unremarkable. No pleural effusion. No pneumothorax. Heart/Mediastinum: Unremarkable. No cardiomegaly. Bones/joints: Unremarkable. XR/XR chest 1V portable [id number] IMPRESSION: Basilar linear opacities are again seen likely reflecting atelectasis. There is limited inspiration and mild elevation of the right hemidiaphragm.
--- NOTE | 2022-11-21 16:01 | ECG_ITS ---
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 Measurements Intervals [place] Rate: 66 P: 46 VT: 220 QRS: 10 QRSD: 186 T: 37 QT: 522 QTc: 551 Interpretive Statements SINUS RHYTHM WITH FIRST DEGREE AV BLOCK RIGHT BUNDLE BRANCH BLOCK [120+ ms QRS DURATION, UPRIGHT V1, 40+ ms S IN I/aVL/V4/V5/V6] Compared to ECG 11/14/2021 16:06:55 First degree AV block now present Sinus bradycardia no longer present Ventricular premature complex(es) no longer present Electronically Signed On 11-21-2022 22:56:09 CDT by Stacey Celis M.D. [id number]
--- NOTE | 2022-11-21 16:06 | PC.PHAR ---
[facility] FAXING MED LIST 4 PM 11/21/22
[2022-11-21 16:19] LABS: Glucose Point of Care 170 mg/dL (70-110)
--- NOTE | 2022-11-21 16:22 | PC.NURSE ---
PT REFUSED SWAB FOR RESPIRATORY PANEL. PHYSICIAN NOTIFIED
[2022-11-21 16:33] LABS: Basophils # 0.1 10^3/uL (0.0-0.1); Basophils % 0.5 %; Eosinophils # 0.2 10^3/uL (0.0-0.8); Eosinophils % 2.4 %; Hemoglobin 12.8 g/dL (11.7-16.6); Lymphocytes # 1.8 10^3/uL (0.8-4.8); Lymphocytes % 19.2 %; Mean Corpuscular Hemoglobin 30.3 pg (28.0-34.0); Mean Corpuscular Volume 94.6 fl (80-94); Mean Platelet Volume 8.9 fL (7.4-10.4); Monocytes % 10.3 %; Neutrophils % 66.8 %; Nucleated Red Blood Cells % 0 %; Platelet Count 256 10^3/cmm (130-400); Red Blood Count 4.23 10^6/uL (4.1-5.3); Red Cell Distribution Width 13.4 % (12.1-15.1); White Blood Count 9.3 10^3/uL (4.0-10.0)
[2022-11-21 16:53] LABS: Lactic Sepsis W/Reflex 1.3 mmol/L (0.5-2.2)
[2022-11-21 16:55] LABS: Erythrocyte Sedimentation Rate 16 mm/hr (0-10)
[2022-11-21 17:01] LABS: NT Pro B Type Natriuretic Pept 110 pg/mL (0-450); Procalcitonin 0.12 ng/mL (0-0.5)
--- NOTE | 2022-11-21 17:04 | PC.NURSE ---
PT REFUSING V/S LEADS
[2022-11-21 17:08] LABS: Troponin(5th) Baseline 33 ng/L (0-15)
[2022-11-21 17:11] LABS: Alanine Aminotransferase 44 U/L (0-41); Albumin Level 3.4 g/dL (3.5-5.2); Alkaline Phosphatase 99 U/L (40-130); Anion Gap 14.6 (5-19); Aspartate Amino Transferase 48 U/L (0-40); Blood Urea Nitrogen 14 mg/dL (8-23); C Reactive Protein 151.7 mg/L (0.0-4.9); Calcium 8.3 mg/dL (8.5-10.5); Carbon Dioxide 27 mmol/L (22-29); Chloride 97 mmol/L (98-107); Globulin 3.3 g/dL (1.3-4.6); Glucose 170 mg/dL (65-115); Osmolality Calculated 282 mOsm/kg (285-295); Potassium 4.6 mmol/L (3.5-5.1); Sodium 134 mmol/L (136-145); Total Bilirubin 0.6 mg/dL (0.15-1.2); Total Protein 6.7 g/dL (6.6-8.7)
[2022-11-21 17:16] VITALS: BP 119/76; PULSE 66; RESP 14; O2SAT 90
--- NOTE | 2022-11-21 17:34 | ECG_ITS ---
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 Measurements Intervals [place] Rate: 67 P: 63 OK: 218 QRS: 31 QRSD: 185 T: 29 QT: 565 QTc: 598 Interpretive Statements SINUS RHYTHM WITH FIRST DEGREE AV BLOCK RIGHT BUNDLE BRANCH BLOCK [120+ ms QRS DURATION, UPRIGHT V1, 40+ ms S IN I/aVL/V4/V5/V6] PROLONGED QT INTERVAL CRITICAL TEST RESULT Compared to ECG 11/21/2022 16:01:16 Prolonged QT interval now present Electronically Signed On 11-21-2022 22:58:16 CDT by Stacey Celis M.D. [id number]
[2022-11-21 18:00] VITALS: BP 117/67; PULSE 62; RESP 16; O2SAT 92
[2022-11-21 18:08] LABS: Troponin 5 2HR 33.89 ng/L (0-15)
[2022-11-21 18:10] LABS: Troponin 5 2HR Delta 0.89 ABS# (0-10)
--- NOTE | 2022-11-21 19:34 | XRR_ITS ---
PROCEDURE INFORMATION: Exam: XR Chest Exam date and time: 11/21/2022 7:37 PM Age: 77 years old Clinical indication: Device placement; Picc; Additional info: Picc placement TECHNIQUE: Imaging protocol: Radiologic exam of the chest. Views: 1 view. COMPARISON: CR XR chest 1V portable [id number] 11/21/2022 3:48 PM FINDINGS: Tubes, catheters and devices: Right PICC line terminates at the cavoatrial junction. Lungs: Unremarkable. No consolidation. Pleural spaces: Unremarkable. No pleural effusion. No pneumothorax. Heart/Mediastinum: Unremarkable. No cardiomegaly. Bones/joints: Unremarkable. XR/XR chest 1V portable [id number] IMPRESSION: Right PICC line in proper positioning.
[2022-11-21 19:48] VITALS: BP 128/68; PULSE 59; O2SAT 93
--- NOTE | 2022-11-21 20:06 | PC.NURSE ---
PICC Insertion Consulted by warehouse distribution specialist for PICC placement for IV infusion >14d. Upon arrival to room, patient unable to provide informed consent due to confusion. Obtained consent from patient's spouse via phone call with primary nurse as witness. Assessed RUE and determined R Brachial vein to be best target for cannulation due to size and lack of evidence of thrombus or stenosis. Using US guidance, MST and sterile technique, accessed vein x1 stick. Advanced device without resistance. Positive blood return in all lumens. Flushed easily in all lumens. Device secured. EBL <10mL. Patient tolerated well. X-Ray for tip location confirmation obtained; pending radiologist review. Reported to primary nurse.
[2022-11-21 21:34] LABS: Adenovirus Not Detected (NOT DETECT); Chlamydia Pneumoniae Not Detected (NOT DETECT); Coronavirus 229E,HKU1,NL63,OC4 Not Detected (NOT DETECT); Human Metapneumovirus Not Detected (NOT DETECT); Human Rhinovirus/Enterovirus Not Detected (NOT DETECT); Influenza A Not Detected (NOT DETECT); Influenza A H1 Not Detected (NOT DETECT); Influenza A H1-2009 Not Detected (NOT DETECT); Influenza A H3 Not Detected (NOT DETECT); Influenza B Not Detected (NOT DETECT); Mycoplasma Pneumoniae Not Detected (NOT DETECT); Parainfluenza Virus Type 1 Not Detected (NOT DETECT); Parainfluenza Virus Type 2 Not Detected (NOT DETECT); Parainfluenza Virus Type 3 Not Detected (NOT DETECT); Parainfluenza Virus Type 4 Not Detected (NOT DETECT); Respiratory Syncytial Virus A Not Detected (NOT DETECT); Respiratory Syncytial Virus B Not Detected (NOT DETECT); SARS-COV-2 Not Detected (NOT DETECT)
== END 2022-11-21 20:35 ==
PROVIDERS: Emergency Provider Emergency Medicine; PCP Family Medicine
DX: R41.82 Altered mental status, unspecified (principal); Z20.822 Contact with and (suspected) exposure to COVID-19; Z87.891 Personal history of nicotine dependence; E11.9 Type 2 diabetes mellitus without complications; I10 Essential (primary) hypertension
CPT/HCPCS: 36415; 36416; 36573; 71045; 80053; 82962; 83605; 83880; 84145; 84484; 85025; 85651; 86140; 87040; 87486; 87581; 87633; 93005; 99285

== ENCOUNTER 2022-11-24 07:58 | Emergency (ER) | payer OTHER, SELFPAY ==
--- NOTE | 2022-11-24 08:03 | XR_ITS ---
WS: [id number] XR chest 1V portable [id number] REASON FOR EXAM: hypoxia, fall FINDINGS: The chest is unchanged compared to 11/21/2022. Right arm PICC line in place with the catheter tip at the cavoatrial junction. Moderate tortuosity the thoracic aorta. Elevation of the right hemidiaphragm. There are linear and ill-defined interstitial opacities in the lung bases some of which represent ate lectasis or fibrotic scarring. A subacute pneumonitis in the lung bases not readily excluded. XR/XR chest 1V portable [id number] IMPRESSION: Stable abnormal chest as above.
--- NOTE | 2022-11-24 08:03 | CT_ITS ---
WS: [id number] CT HEAD TECHNIQUE: Noncontrast CT of the head obtained from the skullbase to the vertex. CLINICAL INFORMATION: fall, posterior head lac COMPARISON: November 03, 2022 DLP: 2201.[address] scans at [facility] use at least one of these dose optimization techniques: automated e xposure control; mA and/or kV adjustment per patient size (includes targeted exams where dose is matc hed to clinical indication); or iterative reconstruction. FINDINGS: No evidence of intracranial hemorrhage or mass effect. Ventricular system and basal cisterns are larios nt. Mild small vessel changes with mild parenchymal volume loss. No extra-axial fluid collections. No evidence of mass or mass effect. Normal fuchs-white differentiation. Paranasal sinuses are well aerated. Prior postoperative changes LEFT canal wall up mastoidectomy. Muc osal thickening LEFT mastoid tip. CT/CT head wo con* [id number] IMPRESSION: 1. No evidence of intracranial hemorrhage or mass effect. 2. Mild small vessel changes with mild parenchymal volume loss. 3. No acute intracranial findings.
[2022-11-24 08:04] VITALS: BP 119/66; PULSE 60; TEMP 37.2; O2SAT 92
--- NOTE | 2022-11-24 08:07 | ED_ITS ---
HPI - Fall General: Chief Complaint: Fall Stated Complaint: fall, laceration to back of head Time Seen by Provider: 11/24/22 08:03 History of Present Illness: Patient presents to the ER by EMS with complaints of fall and posterior head laceration. Patient fell at the assisted and it was witnessed by staff. Patient hit the back of his head on a dresser and has about a 2 to 3 inch laceration and bleeding is controlled at this time. There is no loss of consciousness. Patient is on blood thinner. Patient normally does not wear oxygen but EMS put him on 2 L to keep his sat up above 90%. Current sat is 92% on 2 L. Patient was just in the ER about 3 days ago for patient pulled his PICC line out needed replaced. Review of Systems General: Reports: 10 or more systems reviewed and unremarkable except in HPI and below PFSH ED PFSH: Medical History Ascending aortic aneurysm Atherosclerotic peripheral vascular disease Atrial fibrillation Atrial fibrillation with rapid ventricular response BPH with obstruction/lower urinary tract symptoms Cataract Diabetes mellitus Erectile dysfunction Essential hypertension Hypercholesterolemia Incomplete emptying of bladder Intrathoracic aortic aneurysm Moderate aortic regurgitation Moderate tricuspid regurgitation by prior echocardiogram Surgical History S/P laminectomy S/P vasectomy Family History Other Cancer Diabetes Heart disease Stroke Social History Smoking and tobacco status: former smoker Alcohol intake: never Substance/Drug Use: unknown Adopted: No Caregiver/support person: No Lives independently: No Household members: spouse Marital status: Current occupational status: retired Physical Exam Const: COMMON NORMALS: no acute distress, average body habitus, no limitations, healthy appearing, alert and well nourished HENMT: COMMON NORMALS: normocephalic, hearing grossly normal bilaterally, external ears normal, Normal external nose present and moist oral mucous membranes; head/scalp not atraumatic (Approximate 2 inch laceration to posterior scalp region bleeding controlled) HEAD & SCALP: normocephalic; not atraumatic (Approximate 2 inch laceration to posterior scalp region bleeding controlled) NOSE: Normal external nose present EXTERNAL EAR: Yes external ears normal Neck/C-Spine: COMMON NORMALS: full ROM, no lymphadenopathy, supple, no meningeal signs, no JVD and Thyroid normal THYROID: Thyroid normal Chest: COMMONS NORMALS: normal inspection of the chest and normal palpation of entire chest wall Resp: COMMON NORMALS: normal respiratory effort, No retractions, No use of accessory muscles and clear to auscultation bilaterally AUSCULTATION: clear to auscultation bilaterally Cardio: COMMON NORMALS: no JVD, regular rate, regular rhythm, S1 normal heart sound present, S2 normal heart sound present, No gallops present (Cardio), No clicks present (Cardio), No murmurs present (Cardio) and No rub (Cardio) RATE: regular rate RHYTHM: regular rhythm HEART SOUNDS: S1 normal heart sound present and S2 normal heart sound present GI: COMMON NORMALS: Normal to inspection, nondistended, normoactive bowel s ounds present, Soft to palpation, non-tender, No hepatosplenomegaly present and no masses PALPATION: Yes Soft to palpation and Yes No hepatosplenomegaly present : COMMON NORMALS: Yes no CVA tenderness BLADDER/KIDNEY EXAM: Yes no CVA tenderness Back/Pelvis: COMMON NORMALS: no CVA tenderness Neuro: SENSORIUM/ORIENTATION: Yes alert MENINGEAL SIGNS: Yes no meningeal signs Procedures Laceration Laceration 1: Site: scalp Size (cm): 5.0 Description: linear Depth: simple, single layer Skin layer closed with: other (6 lissette) Course Vital Signs: Vital signs: Vital Signs Temperature 98.9 F 11/24/22 08:04 Pulse Rate 57 L 11/24/22 08:30 Respiratory Rate 19 H 11/24/22 08:30 Blood Pressure 120/64 11/24/22 08:30 Pulse Oximetry 94 11/24/22 08:30 Oxygen Delivery Me thod Nasal Cannula 11/24/22 08:30 Oxygen Flow Rate 2 11/24/22 08:30 MDM - Fall Medical Decision Making Patient presents to the ER with complaints of fall and head lack. Patient had been a 5 cm laceration to his posterior scalp region this was easily closed with 6 lissette. Patient has a head CT chest x-ray Differential Diagnosis Unlikely syncope, dislocation of shoulder region, fracture of wrist, compression fracture, concussion with loss of consciousness or concussion without loss of consciousness Medical Records I reviewed the patient's medical records. Lab Data I reviewed the patient's lab results. 11/24/22 08:36 11/24/22 08:36 Radiology Impressions Chest X-Ray 11/24/22 08:03 IMPRESSION: Stable abnormal chest as above. Head CT 11/24/22 08:03 IMPRESSION: 1. No evidence of intracranial hemorrhage or mass effect. 2. Mild small vessel changes with mild parenchymal volume loss. 3. No acute intracranial findings. Laboratory Results WBC 6.6 10^3/uL (4.0-10.0) 11/24/22 08:36 RBC 4.18 10^6/uL (4.1-5.3) 11/24/22 08:36 Hgb 12.5 g/dL (11.7-16.6) 11/24/22 08:36 Hct 39.2 % (42.0-52.0) L 11/24/22 08:36 MCV 93.8 fl (80-94) 11/24/22 08:36 MCH 29.9 pg (28.0-34.0) 11/24/22 08:36 MCHC 31.9 g/dL (30.0-36.0) 11/24/22 08:36 RDW 13.4 % (12.1-15.1) 11/24/22 08:36 Plt Count 279 10^3/cmm (130-400) 11/24/22 08:36 MPV 8.3 fL (7.4-10.4) 11/24/22 08:36 Neut % (Auto) 67.0 % 11/24/22 08:36 Lymph % (Auto) 17.5 % 11/24/22 08:36 [place] % (Auto) 9.0 % 11/24/22 08:36 Eos % (Auto) 4.6 % 11/24/22 08:36 Baso % (Auto) 0.8 % 11/24/22 08:36 Neut # (Auto) 4.43 10^3/uL (1.8-7.7) 11/24/22 08:36 Lymph # (Auto) 1.2 10^3/uL (0.8-4.8) 11/24/22 08:36 [place] # (Auto) 0.6 10^3/uL (0.2-0.9) 11/24/22 08:36 Eos # (Auto) 0.3 10^3/uL (0.0-0.8) 11/24/22 08:36 Baso # (Auto) 0.1 10^3/uL (0.0-0.1) 11/24/22 08:36 Nucleated RBC % (auto) 0 % 11/24/22 08:36 Nucleated RBCs # 0.0 /100WBC 11/24/22 08:36 PT 15.00 SECONDS (12.1-14.9) H 11/24/22 08:36 INR 1.14 (0.8-1.2) 11/24/22 08:36 Sodium 138 mmol/L (136-145) 11/24/22 08:36 Potassium 4.5 mmol/L (3.5-5.1) 11/24/22 08:36 Chloride 103 mmol/L (98-107) 11/24/22 08:36 Carbon Dioxide 26 mmol/L (22-29) 11/24/22 08:36 Anion Gap 13.5 (5-19) 11/24/22 08:36 BUN 8 mg/dL (8-23) 11/24/22 08:36 Creatinine 1.1 mg/dL (0.7-1.2) 11/24/22 08:36 GFR Calculation Not Reportable 11/24/22 08:36 Glucose 158 mg/dL (65-115) H 11/24/22 08:36 Calculated Osmolality 288 mOsm/kg (285-295) 11/24/22 08:36 Calcium 8.3 mg/dL (8.5-10.5) L 11/24/22 08:36 Total Bilirubin 0.7 mg/dL (0.15-1.2) 11/24/22 08:36 AST 69 U/L (0-40) H 11/24/22 08:36 ALT 55 U/L (0-41) H 11/24/22 08:36 Alkaline Phosphatase 98 U/L (40-130) 11/24/22 08:36 Total Protein 6.6 g/dL (6.6-8.7) 11/24/22 08:36 Albumin 2.9 g/dL (3.5-5.2) L 11/24/22 08:36 Globulin 3.7 g/dL (1.3-4.6) 11/24/22 08:36 Discharge Plan Discharge Patient Disposition: Home Clinical Impression: Fall, Laceration of occipital region of scalp Condition: Stable Prescriptions: No Action tamsulosin 0.4 mg capsule 0.8 mg PO DAILY Qty: 180 3RF Pradaxa 150 mg capsule 150 mg PO BID carbidopa-levodopa 25-250 mg tablet 0.5 tab PO TID gabapentin 300 mg capsule 300 mg PO TID citalopram 10 mg tablet 10 mg PO DAILY metformin 500 mg tablet 500 mg PO BID Pacerone 200 mg tablet 200 mg PO BID Qty: 180 2RF insulin lispro [Humalog U-100 Insulin] 100 unit/mL Solution See Rx Instructions .ROUTE .COMPLEX Rx Instructions: medium correction SS methocarbamol 500 mg tablet 500 mg PO TID PRN (Reason: Muscle Spasm) acetaminophen 325 mg Tablet 650 mg PO Q6H PRN (Reason: Pain) oxycodone-acetaminophen [Percocet] 5-325 mg Tablet 1 tab PO QID PRN (Reason: Pain) magnesium hydroxide [Milk of Magnesia] 400 mg/5 mL Suspension 30 ml PO Q3D PRN (Reason: Constipation) bisacodyl [Dulcolax (bisacodyl)] 10 mg Suppository 10 mg AR DAILY PRN (Reason: Constipation) Fleet Enema 19-7 gram/118 mL Enema 118 ml AR DAILY PRN (Reason: Constipation) docusate sodium [Colace] 100 mg Capsule 100 mg PO BID lisinopril 5 mg Tablet 5 mg PO DAILY finasteride 5 mg Tablet 5 mg PO QPM rosuvastatin 10 mg Tablet 10 mg PO DAILY insulin glargine [Lantus Solostar U-100 Insulin] 100 unit/mL (3 mL) Insulin Pen 20 unit SUBCUT QAM haloperidol 2 mg tablet 2 mg PO Q8H PRN (Reason: agitation) Qty: 30 0RF lorazepam 2 mg/mL solution See Rx Instructions .ROUTE .COMPLEX Rx Instructions: 2 MG INTRAMUSCULAR STAT NEEDED FOR AGITATION OR AGRESSION. lorazepam 0.5 mg tablet See Rx Instructions .ROUTE .COMPLEX Rx Instructions: 0.5 MG ORALLY IMMEDIATELY bisacodyl 5 mg tablet,delayed release (DR/EC) See Rx Instructions .ROUTE .COMPLEX PRN (Reason: Constipation) Rx Instructions: 10 MG BY MOUTH DAILY NEEDED IF NO RESULTS FROM MILK OF MAG Seroquel 25 mg tablet 25 mg PO BEDTIME trazodone 50 mg tablet 25 mg PO BEDTIME Discharge Orders: Discharge ED (Routine); Ordered 11/24/22 Ordered By: Blair Balbuena Referrals: Deshaun Kelley MD [Primary Care Provider] - 1 week Patient Instructions: Head Laceration (ED) Activity Restrictions/Additional Instructions: Please follow-up with your primary care doctor in approximately 5 to 7 days for further evaluation of your laceration and possible staple removal. Coding Level of Care Code ED Career Placement Specialist for Fozia Dalton
[2022-11-24 08:30] VITALS: BP 120/64; PULSE 57; RESP 19; O2SAT 94
[2022-11-24 08:42] LABS: Basophils # 0.1 10^3/uL (0.0-0.1); Basophils % 0.8 %; Eosinophils # 0.3 10^3/uL (0.0-0.8); Eosinophils % 4.6 %; Hematocrit 39.2 % (42.0-52.0); Hemoglobin 12.5 g/dL (11.7-16.6); Lymphocytes # 1.2 10^3/uL (0.8-4.8); Lymphocytes % 17.5 %; Mean Corpuscular HGB Conc 31.9 g/dL (30.0-36.0); Mean Corpuscular Hemoglobin 29.9 pg (28.0-34.0); Mean Corpuscular Volume 93.8 fl (80-94); Mean Platelet Volume 8.3 fL (7.4-10.4); Monocytes # 0.6 10^3/uL (0.2-0.9); Neutrophils # 4.43 10^3/uL (1.8-7.7); Nucleated Red Blood Cells % 0 %; Platelet Count 279 10^3/cmm (130-400); Red Blood Count 4.18 10^6/uL (4.1-5.3); Red Cell Distribution Width 13.4 % (12.1-15.1); White Blood Count 6.6 10^3/uL (4.0-10.0)
--- NOTE | 2022-11-24 08:43 | PC.NURSE ---
PT ARRIVED TO ED FROM [place]. PER [facility] PT GOT UP AND FELL BACK INTO CLOSET DOOR. PT ARRIVED WITH APPROXIMATE 5CM LACERATION TO POSTERIOR HEAD. PHYSICIAN APPLIED SIX MARCUS AT BEDSIDE. PER [place] PT HAS HX OF DEMENTIA. PT HAS PICC LINE PRESENT RIGHT UPPER ARM.
[2022-11-24 08:53] LABS: INR 1.14 (0.8-1.2)
[2022-11-24 09:22] LABS: Albumin Level 2.9 g/dL (3.5-5.2); Alkaline Phosphatase 98 U/L (40-130); Anion Gap 13.5 (5-19); Blood Urea Nitrogen 8 mg/dL (8-23); Calcium 8.3 mg/dL (8.5-10.5); Carbon Dioxide 26 mmol/L (22-29); Chloride 103 mmol/L (98-107); Creatinine Clr Calc Pharmacy 65.8321; Globulin 3.7 g/dL (1.3-4.6); Glucose 158 mg/dL (65-115); Osmolality Calculated 288 mOsm/kg (285-295); Potassium 4.5 mmol/L (3.5-5.1); Sodium 138 mmol/L (136-145); Total Bilirubin 0.7 mg/dL (0.15-1.2); Total Protein 6.6 g/dL (6.6-8.7)
[2022-11-24 09:34] LABS: Alanine Aminotransferase 55 U/L (0-41); Aspartate Amino Transferase 69 U/L (0-40)
[2022-11-24 11:40] VITALS: BP 148/72; PULSE 64; RESP 20; O2SAT 93
[2022-11-24 11:41] VITALS: BP 148/72; PULSE 64; RESP 20; O2SAT 93
== END 2022-11-24 11:43 | disposition home or self-care (01) ==
PROVIDERS: Emergency Provider Emergency Medicine; PCP Family Medicine
DX: S01.01XA Laceration without foreign body of scalp, initial encounter (principal); Z79.84 Long term (current) use of oral hypoglycemic drugs; Z79.4 Long term (current) use of insulin; E11.9 Type 2 diabetes mellitus without complications; I10 Essential (primary) hypertension; Z87.891 Personal history of nicotine dependence; W18.39XA Other fall on same level, initial encounter; Y92.129 Unspecified place in nursing home as the place of occurrence of the external cause
CPT/HCPCS: 12002; 36415; 70450; 71045; 80053; 85025; 85610; 99284

== ENCOUNTER → 2022-12-03 12:00 | Day surgery (SDC) | payer MEDICARE, SELFPAY ==
[2022-12-03 12:23] VITALS: BP 96/56; PULSE 78; RESP 18; TEMP 36.3; O2SAT 90
--- NOTE | 2022-12-03 12:23 | XR_ITS ---
WS: [id number] Portable AP upright chest, 12/03/2022 Clinical Data: Post PICC insertion Comparison: Portable chest, 11/24/2022 Findings: The right PICC line enters the superior vena cava. No pneumothorax is seen. Impression: Satisfactory placement of right PICC line.
--- NOTE | 2022-12-03 13:00 | PC.NURSE ---
Single lumen PICC placed to right basilic vein without difficulty. Pt from intermediate. Received referral for PICC due to patient pulling out line. Pt needs additional 3 weeks IV antibiotics. Informed consent obtained from pt daughter, Yessi Coronado. Pt with history of Parkinson's and dementia. Pt alert and oriented and able to give upon arrival. Risks and benefits discussed with patient. Right arm assessed. Right basilic vein measured 4 mm, appeared straight, and best choice for placement. Using sterile technique and MST, basilic vein accessed x 1 stick. Mid-arm circumference measured 10 cm from right AC 28 cm. Trimmed cath length 41 cm with 0 cm external length noted. CXR confirms tip in SVC, in good position for use per radiologist. Line secured with stat-lock. Insertion site covered with Biopatch and TSM. Copy of Xray confirmation and report of line insertion sent to [facility] with rail transportation operator.
== END ==
PROVIDERS: PCP Family Medicine; Visit Provider Internal Medicine
DX: Z45.2 Encounter for adjustment and management of vascular access device (principal); A49.9 Bacterial infection, unspecified; Z47.89 Encounter for other orthopedic aftercare
CPT/HCPCS: 36573; 71045

== ENCOUNTER 2022-12-12 08:11 | Emergency (ER) | payer OTHER, SELFPAY ==
[2022-12-12] VITALS (26 sets, daily range): BP systolic 56–91; BP diastolic 33–62; PULSE 71–106; RESP 23–36; TEMP 39.1; O2SAT 88–100; BMI 25.1
[2022-12-12 08:23] LABS: ABG PCO2 24.8 mmHg (35-45); ABG PH Result 7.37 (7.35-7.45); Alveolar-Arterial Oxygen Gradi 80.1 mmHg (5-10); Arterial Blood Gas Hematocrit 37.2 % (42-52); Base Excess ABG -9.3 mmol/L (-2.0-2.0); Blood Gas Allen Test Pos; Blood Gas Operator Identificat MONRO; Blood Gas Sample Site Radial, right; Blood Gas Sample Type Arterial; Carboxyhemoglobin 1.5 %THgb (0.4-20.1); HCO3 ABG 14.4 mmol/L (22-26); HGB O2 Sat 90.7 % (95-100); Ionized Calcium Level - ABG 1.1 mmol/L (1.1-1.4); Methemoglobin 0.3 % (0.4-1.5); Oxygen Device NRB; Oxygen Saturation ABG 92.4; PO2 ABG 61.3 mmHg (80.0-100.0); Potassium Level - ABG 2.6 mmol/L (3.5-5.0); Total Hemoglobin 12.2 g/dL (14-18)
[2022-12-12 08:25] LABS: Basophils % 0.3 %; Eosinophils # 0.1 10^3/uL (0.0-0.8); Eosinophils % 1.1 %; Hematocrit 38.8 % (37-53); Lymphocytes # 0.8 10^3/uL (0.8-4.8); Lymphocytes % 12.5 %; Mean Corpuscular HGB Conc 31.4 g/dL (30-55); Mean Corpuscular Hemoglobin 29.5 pg (27-33); Mean Corpuscular Volume 93.7 fl (82-101); Mean Platelet Volume 8.9 fL (7.4-10.4); Monocytes # 0.1 10^3/uL (0.2-0.9); Monocytes % 0.9 %; Neutrophils # 5.36 10^3/uL (1.8-7.7); Neutrophils % 83.5 %; Nucleated Red Blood Cells % 0 %; Platelet Count 286 10^3/cmm (157-399); Red Blood Count 4.14 10^6/uL (3.85-5.65); Red Cell Distribution Width 13.2 % (12.1-15.1); White Blood Count 6.42 10^3/uL (3.29-11.43)
--- NOTE | 2022-12-12 08:29 | CT_ITS ---
WS: [id number] CT LUMBAR SPINE WITH CONTRAST TECHNIQUE: Contrast-enhanced CT of the lumbar spine with coronal and sagittal reformatted images. CLINICAL INFORMATION: sepsis/recent lumbar laminectomy COMPARISON: None. DLP: 1069.[address] scans at [facility] use at least one of these dose optimization techniques: automated e xposure control; mA and/or kV adjustment per patient size (includes targeted exams where dose is matc hed to clinical indication); or iterative reconstruction. FINDINGS: Prior postoperative changes pedicle screw fixation L2-L5 with dorsal interconnecting rods. Interbody fusion grafts L3-L5. Dorsal lateral bone graft material. Decompressive laminectomy defects. Dorsal interconnecting rods fr actured at the L3-4 level bilaterally. This is unchanged in appearance since 11/05/2022. L1-L2: Normal L2-L3: Decompressive laminectomies. Spinal canal and foramen are patent. L3-L4: Interbody fusion. Spinal canal and foramen are patent. Laminectomy defects. L4-L5: Interbody fusion. Mild LEFT bony foraminal narrowing. Spinal canal and RIGHT foramen are paten t. L5-S1: Mild LEFT bony foraminal narrowing. Spine canal and RIGHT foramen are patent. Visualized pelvic bony structures: Normal. Paravertebral soft tissues: Normal. IMPRESSION: 1. Pedicle screw fixation L2-L5 with interbody fusion graft and dorsal lateral bone graft material. 2. Decompressive laminectomy defects. No evidence of drainable fluid collection or abscess. No signi ficant central canal stenosis. 3. Pedicle screws appear intact. 4. Mild LEFT L4-5 and mild LEFT L5-S1 bony foraminal narrowing. 5. Dorsal interconnecting rods fractured at the L3-4 level bilaterally. This is unchanged in appeara nce since 11/05/2022. 6. No other acute lumbar spine findings.
[2022-12-12] MEDS: sodium chloride 0.9% 2,449.41 ML 2449.41 ML IV (08:40)
--- NOTE | 2022-12-12 08:46 | CT_ITS ---
WS: [id number] CT ABDOMEN PELVIS TECHNIQUE: Noncontrast CT of the abdomen and pelvis with coronal and sagittal reformatted images. CLINICAL INFORMATION: Abdominal pain COMPARISON: 11/04/2022 DLP: 981.[address] scans at [facility] use at least one of these dose optimization techniques: automated e xposure control; mA and/or kV adjustment per patient size (includes targeted exams where dose is matc hed to clinical indication); or iterative reconstruction. FINDINGS: Bibasilar atelectasis. This is increased compared to the prior recent examination. Coronary calcifica tion. Hepatomegaly. Normal noncontrast spleen. Air-fluid level in the stomach. Normal GE junction. No rmal noncontrast gallbladder. Fatty atrophy of the pancreas. Adrenal glands are normal. No hydronephr osis in either kidney. Mild perinephric edema can be seen with renal insufficiency. Diffuse bladder wall thickening compatible with bladder outlet obstruction. Markedly enlarged prostat e measuring 5.7 x 5.6 cm. Mild thickening of the seminal vesicles bilaterally. Recommend correlation PSA. Extensive diverticulosis. No evidence of acute diverticulitis. Additional diverticulosis in the trans verse and descending colon. Normal appendix in the RIGHT lower quadrant. No evidence of large or small bowel obstruction. Normal noncontrast aorta. No free fluid in the abdom en or pelvis. Serna catheter with balloon insufflation in the penile urethra. This does not extend to the bladder. Recommend repositioning. Incidental fat-containing inguinal hernias. Prior postoperativ e changes lumbar spine. IMPRESSION: 1. Serna catheter in the penile urethra with slight balloon inflation. Recommend repositioning. This does not extend to the bladder. 2. Extensive diverticulosis. No evidence of acute diverticulitis. 3. No hydronephrosis in either kidney. 4. Bibasilar atelectasis increased compared to 11/04/2022. 5. Slightly distended stomach with air-fluid level. No evidence of small or large bowel obstruction. 6. Markedly enlarged prostate with bladder outlet obstruction. Prostate measures 5.6 x 5.7 cm. Recom mend correlation PSA.
[2022-12-12 08:51] LABS: Alanine Aminotransferase 61 U/L (0-41); Albumin Level 2.6 g/dL (3.5-5.2); Alkaline Phosphatase 141 U/L (40-130); Anion Gap 26.9 (5-19); Aspartate Amino Transferase 133 U/L (0-40); Blood Urea Nitrogen 13 mg/dL (8-23); Calcium 8.4 mg/dL (8.5-10.5); Carbon Dioxide 16 mmol/L (22-29); Chloride 103 mmol/L (98-107); Globulin 2.9 g/dL (1.3-4.6); Glucose 106 mg/dL (65-115); Lipase 26 U/L (13-60); NT Pro B Type Natriuretic Pept 870 pg/mL (0-450); Osmolality Calculated 297 mOsm/kg (285-295); Sodium 143 mmol/L (136-145); Total Bilirubin 1.9 mg/dL (0.15-1.2); Total Protein 5.5 g/dL (6.6-8.7)
[2022-12-12] MEDS: piperacillin-tazobactam 3.375 GM in sodium chloride 0.9% (plus) 50 ML IV (08:56)
[2022-12-12 08:57] LABS: Potassium 2.9 mmol/L (3.5-5.1); Slide Review Slide Review Perform
--- NOTE | 2022-12-12 08:59 | W.ED.GENADLT ---
HPI - General Adult General: Chief complaint: Altered Mental Status Stated complaint: unresponsive, septic Time Seen by Provider: 12/12/22 08:18 Source: EMS Mode of arrival: EMS History of Present Illness: 77-year-old male presents to the retirement unresponsive. 46 weeks ago patient had pretty extensive lumbar laminectomy. It exacerbated his dementia he has had a hard time participating in any rehab. Approximately 3 weeks ago he fell head CT was negative. Presents here with a temp greater than 102 nonresponsive gross hematuria and catheter. His incision site has no redness erythema or drainage. He is minimally responsive to painful stimuli he is hypotensive as well. assisted reports him to be a Do Not Recussitate. Onset (ago): unknown Review of Systems General: Reports: ROS unobtainable due to medical condition and ROS unobtainable due to mental status PFSH ED PFSH: Medical History Ascending aortic aneurysm Atherosclerotic peripheral vascular disease Atrial fibrillation Atrial fibrillation with rapid ventricular response BPH with obstruction/lower urinary tract symptoms Cataract Diabetes mellitus Erectile dysfunction Essential hypertension Hypercholesterolemia Incomplete emptying of bladder Intrathoracic aortic aneurysm Moderate aortic regurgitation Moderate tricuspid regurgitation by prior echocardiogram Surgical History S/P laminectomy S/P vasectomy Family History Other Cancer Diabetes Heart disease Stroke Social History Smoking and tobacco status: former smoker Alcohol intake: never Substance/Drug Use: unknown Adopted: No Caregiver/support person: No Lives independently: No Household members: spouse Marital status: Current occupational status: retired Physical Exam HENMT: COMMON NORMALS: normocephalic, atraumatic and hearing grossly normal bilaterally HEAD & SCALP: normocephalic and atraumatic Resp: COMMON NORMALS: normal respiratory effort, No retractions and No use of accessory muscles AUSCULTATION: rhonchi and diminished lung sounds Cardio: COMMON NORMALS: regular rate, regular rhythm and No murmurs present (Cardio) RATE: regular rate RHYTHM: regular rhythm GI: COMMON NORMALS: Soft to palpation and No hepatosplenomegaly present AUSCULTATION: Yes normoactive bowel sounds PALPATION: Yes Soft to palpation, No Tenderness to palpation present (GI), No Guarding due to palpation present (GI) and Yes No hepatosplenomegaly present Extremity: COMMON NORMALS: normal to inspection, capillary refill normal, no clubbing, cyanosis or edema, no calf tenderness and no pedal edema Skin: COMMON NORMALS: no rashes or lesions noted GENERAL SKIN EXAM: no rashes or lesions noted OTHER: No breakdown dehiscence or redness erythema or drainage of the wound to the lumbar spine Course Vital Signs: Vital signs: Vital Signs Temperature 102.3 F H 12/12/22 08:20 Pulse Rate 75 12/12/22 14:15 Respiratory Rate 35 H 12/12/22 14:15 Blood Pressure 59/39 12/12/22 14:30 Pulse Oximetry 88 L 12/12/22 14:15 Oxygen Delivery Me thod Nasal Cannula 12/12/22 14:15 Oxygen Flow Rate 6 12/12/22 14:15 Fraction of Inspir ed Oxygen 85 12/12/22 12:00 [facility] - General Adult Medical Decision Making Patient in septic shock on arrival given fluid boluses and added Levophed. He initially had some improvement but then his pressure dropped again and vasopressin was added. Patient given vancomycin and Zosyn due to sepsis. Multiple long discussions with his family ultimately they decided due to his dementia and poor quality of life that they would prefer not to treat the patient. He had been started on BiPAP shortly after while arrival due to his work of breathing and hypoxemia that had improved things. Once the family decided to transition to comfort cares the BiPAP was stopped and he was placed on nasal cannula so he could converse with them. [facility] was consulted at the family's request patient transferred back to [facility]. Hospice will manage the patient at the facility. Medical Records I reviewed the patient's medical records. Lab Data I reviewed the patient's lab results. 12/12/22 08:00 12/12/22 08:00 Laboratory Results WBC 6.42 10^3/uL (3.29-11.43) 12/12/22 08:00 RBC 4.14 10^6/uL (3.85-5.65) 12/12/22 08:00 Hgb 12.20 g/dL (11.27-16.99) 12/12/22 08:00 Hct 38.8 % (37-53) 12/12/22 08:00 MCV 93.7 fl (82-101) 12/12/22 08:00 MCH 29.5 pg (27-33) 12/12/22 08:00 MCHC 31.4 g/dL (30-55) 12/12/22 08:00 RDW 13.2 % (12.1-15.1) 12/12/22 08:00 Plt Count 286 10^3/cmm (157-399) 12/12/22 08:00 MPV 8.9 fL (7.4-10.4) 12/12/22 08:00 Neut % (Auto) 83.5 % 12/12/22 08:00 Lymph % (Auto) 12.5 % 12/12/22 08:00 [facility] % (Auto) 0.9 % 12/12/22 08:00 Eos % (Auto) 1.1 % 12/12/22 08:00 Baso % (Auto) 0.3 % 12/12/22 08:00 Neut # (Auto) 5.36 10^3/uL (1.8-7.7) 12/12/22 08:00 Lymph # (Auto) 0.8 10^3/uL (0.8-4.8) 12/12/22 08:00 [facility] # (Auto) 0.1 10^3/uL (0.2-0.9) L 12/12/22 08:00 Eos # (Auto) 0.1 10^3/uL (0.0-0.8) 12/12/22 08:00 Baso # (Auto) 0.0 10^3/uL (0.0-0.1) 12/12/22 08:00 Nucleated RBC % (auto) 0 % 12/12/22 08:00 Nucleated RBCs # 0.0 /100WBC 12/12/22 08:00 Specimen Type Arterial 12/12/22 08:11 Sample Site Radial, right 12/12/22 08:11 ABG pH 7.37 (7.35-7.45) 12/12/22 08:11 ABG pCO2 24.8 mmHg (35-45) L 12/12/22 08:11 ABG pO2 61.3 mmHg (80.0-100.0) L 12/12/22 08:11 ABG HCO3 14.4 mmol/L (22-26) L 12/12/22 08:11 ABG O2 Saturation 92.4 12/12/22 08:11 ABG Base Excess -9.3 mmol/L (-2.0-2.0) L 12/12/22 08:11 Paulo Test Pos 12/12/22 08:11 A-a O2 Gradient 80.1 mmHg (5-10) H 12/12/22 08:11 Hematocrit 37.2 % (42-52) L 12/12/22 08:11 Hgb O2 Saturation 90.7 % (95-100) L 12/12/22 08:11 Carboxyhemoglobin 1.5 %THgb (0.4-20.1) 12/12/22 08:11 Methemoglobin 0.3 % (0.4-1.5) L 12/12/22 08:11 Total Hemoglobin 12.2 g/dL (14-18) L 12/12/22 08:11 Sodium 141.0 mmol/L (131-143) 12/12/22 08:11 Potassium 2.6 mmol/L (3.5-5.0) L 12/12/22 08:11 Glucose 106.0 mg/dL (70-115) 12/12/22 08:11 Ionized Calcium 1.1 mmol/L (1.1-1.4) 12/12/22 08:11 O2 Delivery Device Nrb 12/12/22 08:11 O2 Liters/Min 15.0 % 12/12/22 08:11 FiO2 100.0 % 12/12/22 08:11 Engineering Clerk ID Monro 12/12/22 08:11 Sodium 143 mmol/L (136-145) 12/12/22 08:00 Potassium 2.9 mmol/L (3.5-5.1) L 12/12/22 08:00 Chloride 103 mmol/L (98-107) 12/12/22 08:00 Carbon Dioxide 16 mmol/L (22-29) L 12/12/22 08:00 Anion Gap 26.9 (5-19) H 12/12/22 08:00 BUN 13 mg/dL (8-23) 12/12/22 08:00 Creatinine 1.8 mg/dL (0.7-1.2) H 12/12/22 08:00 GFR Calculation Not Reportable 12/12/22 08:00 Glucose 106 mg/dL (65-115) 12/12/22 08:00 POC Glucose 91 mg/dL (70-110) 12/12/22 09:08 Calculated Osmolality 297 mOsm/kg (285-295) H 12/12/22 08:00 Lactic Acid 12.4 mmol/L (0.5-2.2) H* 12/12/22 09:12 Lactic Acid (Sepsis) 11.7 mmol/L (0.5-2.2) H* 12/12/22 12:25 Calcium 8.4 mg/dL (8.5-10.5) L 12/12/22 08:00 Total Bilirubin 1.9 mg/dL (0.15-1.2) H 12/12/22 08:00 AST 133 U/L (0-40) H 12/12/22 08:00 ALT 61 U/L (0-41) H 12/12/22 08:00 Alkaline Phosphatase 141 U/L (40-130) H 12/12/22 08:00 NT-Pro-B Natriuret Pep 870 pg/mL (0-450) H 12/12/22 08:00 Total Protein 5.5 g/dL (6.6-8.7) L 12/12/22 08:00 Albumin 2.6 g/dL (3.5-5.2) L 12/12/22 08:00 Globulin 2.9 g/dL (1.3-4.6) 12/12/22 08:00 Lipase 26 U/L (13-60) 12/12/22 08:00 Urine Color Red (Yellow) A 12/12/22 08:45 Urine Appearance Cloudy (CLEAR) A 12/12/22 08:45 Urine pH 7 (5-7) 12/12/22 08:45 Ur Specific [place] 1.000 (1.005-1.030) L 12/12/22 08:45 Urine Protein 2+ (Negative) H 12/12/22 08:45 Urine Glucose (UA) Norm (Normal) 12/12/22 08:45 Urine Ketones Negative (Negative) 12/12/22 08:45 Urine Blood 3+ (Negative) H 12/12/22 08:45 Urine Nitrate Positive (Negative) H 12/12/22 08:45 Urine Bilirubin Neg (Negative) 12/12/22 08:45 Urine Urobilinogen 4 mg/dL (Negative) H 12/12/22 08:45 Ur Leukocyte Esterase 2+ (Negative) H 12/12/22 08:45 Urine RBC >100 /hpf (0-2) H 12/12/22 08:45 Urine WBC >100 /hpf (0-5) H 12/12/22 08:45 Ur Squamous Epith Cells 10-15 /hpf (0-5) H 12/12/22 08:45 Amorphous Sediment 1+ /hpf 12/12/22 08:45 Urine Bacteria 2+ /hpf (NONE) H 12/12/22 08:45 Urine Mucus 1+ /hpf 12/12/22 08:45 Critical Care Time Critical Care Time: Critical Care Time: Yes Total Critical Care Time: 60 Attestation: The high probability of a clinically significant, sudden or life threatening deterioration of the patient's cardiovascular respiratory renal system(s) required my full and direct attention, intervention and personal management. The critical care time is as shown. This time is in addition to time spent performing any reported procedures but includes the following: [x] Data and vital sign review and interpretation [x] Patient assessment, examination and intervention [x] Documentation [x] Medication orders and management Discharge Plan Discharge Patient Disposition: Hospice - Medical Facility Clinical Impression: Septic shock, Acute kidney injury, Cystitis, Dementia due to Parkinson's disease, Acute hypoxemic respiratory failure, Serna catheter problem Condition: Stable Prescriptions: No Action tamsulosin 0.4 mg capsule 0.8 mg PO DAILY Qty: 180 3RF Pradaxa 150 mg capsule 150 mg PO BID carbidopa-levodopa 25-250 mg tablet 0.5 tab PO TID citalopram 10 mg tablet 10 mg PO DAILY metformin 500 mg tablet 500 mg PO BID Pacerone 200 mg tablet 200 mg PO BID Qty: 180 2RF insulin lispro [Humalog U-100 Insulin] 100 unit/mL Solution See Rx Instructions .ROUTE .COMPLEX Rx Instructions: medium correction SS methocarbamol 500 mg tablet 500 mg PO TID PRN (Reason: Muscle Spasm) acetaminophen 325 mg Tablet 650 mg PO Q6H PRN (Reason: Pain) oxycodone-acetaminophen [Percocet] 5-325 mg Tablet 1 tab PO QID PRN (Reason: Pain) magnesium hydroxide [Milk of Magnesia] 400 mg/5 mL Suspension 30 ml PO Q3D PRN (Reason: Constipation) bisacodyl [Dulcolax (bisacodyl)] 10 mg Suppository 10 mg KY DAILY PRN (Reason: Constipation) Fleet Enema 19-7 gram/118 mL Enema 118 ml [place] DAILY PRN (Reason: Constipation) docusate sodium [Colace] 100 mg Capsule 100 mg PO BID lisinopril 5 mg Tablet 5 mg PO DAILY finasteride 5 mg Tablet 5 mg PO QPM insulin glargine [Lantus Solostar U-100 Insulin] 100 unit/mL (3 mL) Insulin Pen 20 unit SUBCUT QAM bisacodyl 5 mg tablet,delayed release (DR/EC) See Rx Instructions .ROUTE .COMPLEX PRN (Reason: Constipation) Rx Instructions: 10 MG BY MOUTH DAILY NEEDED IF NO RESULTS FROM MILK OF MAG quetiapine [Seroquel] 25 mg tablet 25 mg PO BEDTIME trazodone 50 mg tablet 25 mg PO BEDTIME Referrals: Deshaun Kelley MD [Primary Care Provider] - Patient Instructions: Hyponatremia (ED), Benzodiazepine Use Disorder (ED), Dementia (ED), Non-diabetic Hypoglycemia (ED), Hypoglycemia in a Person with Diabetes (ED), Concussion (ED), Alcohol Intoxication (ED), Subarachnoid Hemorrhage (GEN), Altered Mental Status (ED) Coding Level of Care Code ED Liquor Inspector for Fozia Dalton
--- NOTE | 2022-12-12 09:01 | PC.NURSE ---
PATIENT PRESENTS WITH ALTERED MENTATION. PATIENT HAS DUBOSE CATHETER IN PLACE AT TIME OF ARRIVAL. PATIENT URINE PRESENTS WITH BRIGHT RED BLOOD. PATIENT HAS COVERED SURGICAL WOUND TO LUMBAR SPINE. PATIENT GCS OF 6 RESPONDING ONLY TO PAIN. PATIENT PLACED ON BI-PAP. PATIENT MADE COMFORTABLE IN BED.
[2022-12-12 09:10] LABS: Add Urine Microscopic? YES; Bilirubin Urine Neg (Negative); Blood Urine 3+ (Negative); Glucose Urine UA Norm (Normal); Ketones Urine Negative (Negative); Leukocyte Esterase Urine 2+ (Negative); Nitrate Urine Positive (Negative); Protein Urine 2+ (Negative); Urine Appearance Cloudy (CLEAR); Urine Color Red (Yellow); Urobilinogen Urine 4 mg/dL (Negative); pH Urine 7 (5-7)
[2022-12-12 09:10] LABS: Glucose Point of Care 91 mg/dL (70-110)
[2022-12-12 09:11] LABS: Add Urine Culture? Yes; Amorphous Sediment Urine 1+ /hpf; Bacteria Urine 2+ /hpf; Mucus Urine 1+ /hpf; RBC Urine >100 /hpf (0-2); WBC Urine >100 /hpf (0-5)
[2022-12-12] MEDS: iohexol 350 mg/mL 500 mL Btl (per mL) IV (09:38)
[2022-12-12] MEDS: vancomycin 1,000 MG in sodium chloride 0.9% 250 ML 250 MG IV (09:55)
[2022-12-12 09:58] LABS: Lactic Sepsis W/Reflex 12.4 mmol/L (0.5-2.2)
--- NOTE | 2022-12-12 10:02 | PC.NURSE ---
AT TIME PRESENTED TO ER, DUBOSE NOT DRAINING. PER CT READ, DUBOSE CATHETER THAT WAS IN PLACE PRIOR TO ARRIVAL BALLOON SITUATED IN SHAFT OF PENIS. PROVIDER NOTIFIED. PROVIDER VERBAL TO REMOVE AND RE-INSERT NEW DUBOSE. UPON REMOVAL OF DUBOSE, PATIENT PENILE DISCHARGE BLOODY AND CONTINUOUS. NEW DUBOSE PLACED, 16 FR COUDE, DUBOSE CATHETER WITH ASEPTIC TECHNIQUE. PATIENT DUBOSE PATENT AND DRAINING. PATIENT PENIS STILL DRAINING RIGHT RED BLOOD FROM TIP OF PENIS. PROVIDER NOTIFIED. PATIENT MADE COMFORTABLE AT THIS TIME.
[2022-12-12] MEDS: lidocaine 1% 5 ML in potassium chloride premix 100 ML 26.25 ML IV (10:23)
--- NOTE | 2022-12-12 10:24 | XR_ITS ---
WS: [id number] EXAMINATION: XR chest 1V portable [id number] REASON FOR EXAM: dyspnea/cough COMPARISON: 12/03/2022 ORDER DATE: 12/12/2022 10:24 AM TECHNIQUE: A single, portable frontal chest x-ray was obtained. X-RAY FINDINGS: The lungs are clear. Pleural spaces are clear. No pleural effusions or pneumothorax. Cardiomediastinal silhouette is normal. No evidence for pulmonary edema. Soft tissue and osseous structures are unremarkable. Right-sided PICC line in the SVC as before.. IMPRESSION: Unremarkable frontal portable chest x-ray.
--- NOTE | 2022-12-12 10:34 | PC.NURSE ---
PENILE DISCHARGE REASSESSED. BLEEDING HAS SLOWED. CHUCKS REPLACED TO MONITOR FOR BLEEDING.
[2022-12-12 11:06] LABS: Reflex Lactate Order REFLEX LACTIC ORDERD
--- NOTE | 2022-12-12 11:13 | PC.NURSE ---
PATIENT DUBOSE PATENT AND DRAINING.
--- NOTE | 2022-12-12 12:42 | P.CONIM_ITS ---
Providers/Reason For Consult Consulting Physician/Specialty*: Moise Ramirez MD, Hospitalist Reason for Consult*: Sepsis Requesting Physician: Nano Primary Care Provider: Deshaun Kelley MD History of Present Illness History of Present Illness Rey Nguyen is a 77 year old male presenting from the detention with fever, hypotension, respiratory failure requiring BiPAP. According to the nursing facility nurse he has been in poor health the last several months, with worsening memory difficulties . He was admitted there after a lumbar laminectomy, had dehiscence, was eventually put on daptomycin which she is still on. His quality of life is decreased significantly secondary to his Parkinson's disease, dementia, and other medical problems. This morning he was found to have fever, undetectable blood pressure, increased oxygen requirement. He was not able to talk. He was sent to the emergency department. In the emergency department he can grimace, and try to open his eyes but I cannot communicate effectively with him. His family is present, giving him appropriate support. In the emergency department a sepsis protocol was initiated with IV fluids, norepinephrine, eventually vasopressin, broad-spectrum antibiotics consisting of vancomycin and Zosyn. A urinary catheter was replaced. Cultures had been obtained. Lactate was markedly high. Despite 20 of norepinephrine, and vasopressin being initiated blood pressure still significantly low. Review of Systems General: Reports: ROS unobtainable due to medical condition Medications/Allergies Home Medications Medication Instructions Recorded Confirmed Last Taken Type dabigatran etexilate 150 mg 150 mg PO BID 08/30/19 12/12/22 12/12/22 History capsule (Pradaxa) tamsulosin 0.4 mg capsule 0.8 mg PO DAILY #180 caps 01/24/20 12/12/22 12/11/22 Rx amiodarone 200 mg tablet (Pacerone) 200 mg PO BID #180 tabs 01/21/22 12/12/22 12/12/22 Rx carbidopa 25 mg-levodopa 250 mg 0.5 tab PO TID 05/03/22 12/12/22 12/12/22 History tablet citalopram 10 mg tablet 10 mg PO DAILY 10/01/22 12/12/22 12/12/22 History metformin 500 mg tablet 500 mg PO BID 10/01/22 12/12/22 12/12/22 History insulin lispro 100 unit/mL See Rx Instructions .Route .COMPLEX 11/03/22 12/12/22 12/12/22 History subcutaneous solution (Humalog U-100 Insulin) acetaminophen 325 mg tablet 650 mg PO Q6H PRN Pain 11/04/22 12/12/22 12/03/22 History bisacodyl 10 mg rectal suppository 10 mg IN DAILY PRN Constipation 11/04/22 12/12/22 12/03/22 History (Dulcolax (bisacodyl)) docusate sodium 100 mg capsule 100 mg PO BID 11/04/22 12/12/22 12/12/22 History (Colace) finasteride 5 mg tablet 5 mg PO QPM 11/04/22 12/12/22 12/11/22 History insulin glargine 100 unit/mL (3 20 unit SUBCUT QAM 11/04/22 12/12/22 12/12/22 History mL) subcutaneous pen (Lantus Solostar U-100 Insulin) lisinopril 5 mg tablet 5 mg PO DAILY 11/04/22 12/12/22 12/12/22 History magnesium hydroxide 400 mg/5 mL 30 ml PO Q3D PRN Constipation 11/04/22 12/12/22 12/03/22 History oral suspension (Milk of Magnesia) methocarbamol 500 mg tablet 500 mg PO TID PRN Muscle Spasm 11/04/22 12/12/22 12/03/22 History oxycodone-acetaminophen 5 mg-325 1 tab PO QID PRN Pain 11/04/22 12/12/22 12/11/22 History mg tablet (Percocet) sodium phosphates 19 gram-7 118 ml IN DAILY PRN Constipation 11/04/22 12/12/22 12/03/22 History gram/118 mL enema (Fleet Enema) bisacodyl 5 mg tablet,delayed See Rx Instructions .Route 11/24/22 12/12/22 12/03/22 History release .COMPLEX PRN Constipation quetiapine 25 mg tablet (Seroquel) 25 mg PO BEDTIME 11/24/22 12/12/22 12/11/22 History trazodone 50 mg tablet 25 mg PO BEDTIME 11/24/22 12/12/22 12/11/22 History Allergies Allergy/AdvReac Type Severity Reaction Status Date / Time morphine Allergy ADR-Irritab Verified 12/12/22 08:20 le Current Medications Generic Name Dose Route Start Last Admin Trade Name Jaxon PRN Reason Stop Dose Admin Lidocaine HCl 5 ml/ Potassium 105 mls @ 26.25 mls/hr 12/12/22 09:15 12/12/22 10:23 Chloride IV 12/12/22 17:14 26.25 mls/hr Q4H DEANGELO Administration Vasopressin 40 unit/ Sodium 40 mls @ 0.03 mls/min 12/12/22 11:00 12/12/22 11:07 Chloride IV 0.03 mls/min CONT DEANGELO Administration Norepinephrine Bitartrate 4 mg 254 mls @ 0 mls/hr 12/12/22 12:30 12/12/22 12:28 / Dextrose IV 20 mcg/min .Q0M DEANGELO 76.2 mls/hr Administration Protocol Per Protocol PFSH Acute PFSH: Medical History Ascending aortic aneurysm Atherosclerotic peripheral vascular disease Atrial fibrillation Atrial fibrillation with rapid ventricular response BPH with obstruction/lower urinary tract symptoms Cataract Diabetes mellitus Erectile dysfunction Essential hypertension Hypercholesterolemia Incomplete emptying of bladder Intrathoracic aortic aneurysm Moderate aortic regurgitation Moderate tricuspid regurgitation by prior echocardiogram Surgical History S/P laminectomy S/P vasectomy Family History Other Cancer Diabetes Heart disease Stroke Social History Smoking and tobacco status: former smoker Alcohol intake: never Substance/Drug Use: unknown Adopted: No Caregiver/support person: No Lives independently: No Household members: spouse Marital status: Current occupational status: retired Vitals/I&O/Wt Last Vital Signs Temp 102.3 F H 12/12/22 08:20 Pulse 72 12/12/22 12:30 Resp 25 H 12/12/22 12:30 BP 56/41 12/12/22 12:30 Pulse Ox 91 12/12/22 12:30 O2 Del Method BiPAP 12/12/22 10:45 O2 Flow Rate 15 12/12/22 08:20 FiO2 85 12/12/22 12:00 08/12/12/22 12/12/22 22:59 06:59 14:59 Intake Total 3003.410 / 3003.410 Balance 3003.410 / 3003.410 Weight last 48 hrs Weight 81.647 kg Physical Exam Narrative: General exam is a minimally responsive male, on BiPAP at 100% with an oxygen saturation around 91%. Still significantly tachypneic. Blood pressure markedly low HEENT: Atraumatic and normocephalic. BiPAP noted Neck is supple Cardiovascular regular rate and rhythm, 2 or 6 systolic murmur Lungs a few crackles at the bases Abdomen is soft. No obvious organomegaly exam demonstrates Serna. It is bloody in the bag but clearing substantially in the tubing Extremities no cyanosis clubbing. Some trace edema. Refill about 2 seconds. PICC line noted right upper extremity Neuro: Will not cooperate with exam. Skin I did not examine his back. According to the emergency department he has a dressing present that is clean and dry. According to nursing facility nurses back was closed 2 days ago by neurosurgical services in [place]. Urinary Catheter Management: Serna: Cath Placed During This Visit: yes Urinary Catheter Date of Insertion: 12/12/22 Urinary Catheter Time of Insertion: 10:00 Sepsis: Is patient septic: Yes Focused sepsis exam performed: Yes Date exam was performed: 12/12/22 Time exam was performed: 11:30 Data 12/12/22 08:00 12/12/22 08:00 Micro: Microbiology 12/12/22 09:12 Blood Culture - Preliminary Blood SPECIMEN COLLECTED 12/12/22 09:12 Blood Culture - Preliminary Blood SPECIMEN COLLECTED Other data: ABG demonstrates a pH 7.37, PCO2 25, PO2 61 on 100% nonrebreather Total bilirubin 1.9, AST 133, ALT 61, alk phos 141 Lactic acid 12.4 Albumin 2.6 Urinalysis demonstrates greater than 100 reds and greater than 100 whites with 2+ bacteria and 2+ leukocyte Estrace Next x-ray by my read no infiltrate CT abdomen pelvis prior to catheter replacement demonstrated slightly distended air-fluid stomach, enlarged prostate with bladder outlet obstruction and Serna malpositioned in the urethra, no hydronephrosis Lumbar CT demonstrates hardware, no drainable fluid collection or abscess A&P Assessment and plan (1) Sepsis: Patient presented to the hospital with septic shock. Appropriate fluid boluses being given, and he quickly transition to norepinephrine. When this failed fixed dose vasopressin was added Broad-spectrum antibiotics in the form of vancomycin and Zosyn have been given Etiology is likely urine. Cannot completely rule out PICC line infection or even hardware infection/epidural abscess considering he was being treated for wound breakdown with possible infection from his lumbar laminectomy with daptomycin. The emergency department physician has been discussing with family goals of care. Family had already made the patient allow natural . His quality of life had significantly decreased following his lumbar surgery and was poor before this. He had indicated to the family that he did not want to be very aggressive with his medical care 3 weeks ago, wanting to overall be made comfortable. This is what they initiated with his allow natural order. They are now indicating to me, and to the emergency department, that they want to progress to comfort only measures following arrival of his daughter which is imminent. I confirmed this with the daughter in the room, and the patient's power of commercial attorney who is his . I think it is reasonable considering this is the family's wishes to discontinue aggressive treatment when another family member arrives, and place him on comfort care. I offered comfort care and/or hospice care in the hospital, or transition back to the nursing facility. They would very much like to transition back to the nursing facility with him. I think this is reasonable. Significant amount of time was spent reviewing the case, discussing CODE STATUS and further treatment with the family. (2) Acute kidney injury: See notation above (3) Transaminitis: See notation above (4) Acute respiratory failure: See notation above. Currently on BiPAP at 100% FiO2. No plans for intubation. Family wishes are allow natural . (5) Urinary retention: Serna catheter has been replaced, and appears to be in the correct position. (6) Parkinson disease: Has underlying Parkinson's disease with significant dementia, impairing the patient and his ability to do rehabilitation or make a substantial recovery. Plan Other medical problems as outlined in past medical history Thank you for this consultation Consult Attestations Medical Necessity Statement: Not applicable Diagnoses Sepsis A41.9 Acute kidney injury N17.9 Transaminitis R74.01 Acute respiratory failure J96.00 Urinary retention R33.9 Parkinson disease G20 Time Spent (min) 75
[2022-12-12 13:02] LABS: Lactic Acid level (Lactate) 11.7 mmol/L (0.5-2.2)
[2022-12-12] MEDS: morphine 4 mg/mL SDV 1 mL 2 MG IVP (14:20)
[2022-12-13 02:51] LABS: Acinetobacter baumannii Not Detected (NOT DETECT); Bacteroides fragilis Not Detected (NOT DETECT); Citrobacter Not Detected (NOT DETECT); Cronobacter sakazakii Not Detected (NOT DETECT); Enterobacter cloacae complex Not Detected (NOT DETECT); Enterobacter non cloacae Not Detected (NOT DETECT); Fusobacterium necrophorum Not Detected (NOT DETECT); Fusobacterium nucleatum Not Detected (NOT DETECT); Haemophilus influenzae Not Detected (NOT DETECT); Klebsiella pneumoniae group Not Detected (NOT DETECT); Morganella morganii Not Detected (NOT DETECT); Neisseria meningitidis Not Detected (NOT DETECT); Pan Candida Not Detected (NOT DETECT); Pan Gram-Positive Not Detected (NOT DETECT); Proteus mirabilis Not Detected (NOT DETECT); Pseudomonas aeruginosa Not Detected (NOT DETECT); Salmonella Not Detected (NOT DETECT); Serratia Not Detected (NOT DETECT); Serratia marcescens Not Detected (NOT DETECT); Stenotrophomonas maltophilia Not Detected (NOT DETECT)
== END 2022-12-12 14:40 | disposition hospice, inpatient (51) ==
PROVIDERS: Emergency Provider Family Medicine; PCP Family Medicine
DX: A41.9 Sepsis, unspecified organism (principal); R65.21 Severe sepsis with septic shock; N17.9 Acute kidney failure, unspecified; N30.90 Cystitis, unspecified without hematuria; G20 Parkinson's disease; F02.80 Dementia in other diseases classified elsewhere, unspecified severity, without behavioral disturbance, psychotic disturbance, mood disturbance, and anxiety; J96.01 Acute respiratory failure with hypoxia; T83.091A Other mechanical complication of indwelling urethral catheter, initial encounter; Y84.6 Urinary catheterization as the cause of abnormal reaction of the patient, or of later complication, without mention of misadventure at the time of the procedure
CPT/HCPCS: 36415; 36416; 36600; 51702; 71045; 72132; 74176; 80051; 80053; 81001; 82330; 82805; 82962; 83605; 83690; 83880; 85025; 87040; 87077; 87086; 87186; 87205; 94660; 96365; 96366; 96367; 99285; 99291; 99292; J2270; J2543; J3370; J3480; J3490; J7030; J7050; J7060; Q9967